=== PATIENT | female | born 1930 | race Caucasian/White ===

== ENCOUNTER → 2017-04-05 | Outpatient (CLI) | payer OTHER ==
[~2017-04-05] MED LIST: ACET1TAB84 PO; ALEN1TAB21 PO; AMLO10TA4 PO; CALC500C3 PO; CHOL20005 PO; LEVO88TA3 PO; LOSA50TA6 PO; NTRGSL/4 UT; OMEP20TA14 PO; OXYB5TAB74 PO; OXYC-57 PO; TRAM-10 PO
[2017-04-05 12:23] LABS: BASO % 0.4 %; BASO ABS # 0.02 K/uL (0-0.2); COMPLETE YES; EOS % 1.7 %; HEMATOCRIT 42.1 % (37-47); IG% 0.2 %; LYMPH % 23.9 %; LYMPH ABS # 1.29 K/uL (1.2-3.4); MEAN CELL VOLUME 87.7 fL (80-100); MEAN PLATELET VOLUME 10.8 fL (7.4-10.4); MONO % 9.6 %; NEUT % 64.2 %; PLATELET COUNT 287 K/uL (130-400)
[2017-04-05 12:52] LABS: ALT/SGPT 18 U/L (12-78); AST/SGOT 11 U/L (15-37); BLOOD UREA NITROGEN 13 mg/dl (7-18); BUN/CREATININE RATIO 15.9 (10-20); CALCIUM 9.6 mg/dl (8.5-10.1); CARBON DIOXIDE 29 mmol/L (21-32); CHLORIDE 105 mmol/L (98-107); CREATININE 0.84 mg/dl (0.60-1.20); GLUCOSE 86 mg/dl (70-99); POTASSIUM 4.2 mmol/L (3.5-5.1); SODIUM 138 mmol/L (136-145)
[2017-04-05 12:54] LABS: ALB/GLOB RATIO 0.9 (0.9-2); ALKALINE PHOSPHATASE 66 U/L (45-117)
== END | disposition home or self-care (01) ==
LOC: C.LAB1850 09:49
PROVIDERS: ATTEND Internal Medicine Infectious Disease
DX: M35.3 Polymyalgia rheumatica (principal)

== ENCOUNTER 2017-10-11 12:42 | Emergency (ER) | payer OTHER ==
[~2017-10-11 12:42] MED LIST changes: +DTR/5 PO; -OXYB5TAB74 PO
[2017-10-11 12:47] VITALS: O2SAT 93
[2017-10-11 12:52] VITALS: TEMP 36.9
[2017-10-11] MEDS ORDERED: ACETAMINOPHEN 500 MG TAB PO STA (13:24)
[2017-10-11] MEDS ORDERED: XYLOCAINE 1%/SOD BICARB 20 ML VIAL INFIL ONE (13:30)
[2017-10-11 13:40] LABS: BASO % 0.3 %; BASO ABS # 0.02 K/uL (0-0.2); EOS % 1.1 %; EOS ABS # 0.07 K/uL (0-0.5); HEMATOCRIT 46.3 % (37-47); HEMOGLOBIN 15.8 g/dL (12.0-16.0); IG# 0.03 K/uL (0.00-0.02); LYMPH ABS # 1.37 K/uL (1.2-3.4); MEAN CELL VOLUME 87.5 fL (80-100); MEAN CORPUSCULAR HEMOGLOBIN 29.9 pg (25-34); MEAN CORPUSCULAR HGB CONC 34.1 g/dl (32-36); MEAN PLATELET VOLUME 10.7 fL (7.4-10.4); MONO % 9.6 %; MONO ABS # 0.63 K/uL (0.11-0.59); NEUT % 67.5 %; NEUT ABS # 4.41 K/uL (1.4-6.5); PLATELET COUNT 264 K/uL (130-400); RED CELL DISTRIBUTION WIDTH CV 13.4 % (11.5-14.5); RED CELL DISTRIBUTION WIDTH SD 42.5 fL (36.4-46.3); WHITE BLOOD COUNT 6.53 K/uL (4.8-10.8)
--- NOTE | 2017-10-11 13:47 | DIAGNOSTIC IMAGING REPORT ---
CHEST ONE VIEW PORTABLE CLINICAL HISTORY: Altered mental status. Weakness. COMPARISON STUDY: 06/29/2015 FINDINGS: The cardiac and mediastinal contours remain stable. There is a large retrocardiac air-containing opacity consistent with a hiatal hernia. There is no failure. There is no focal pulmonary consolidation. There are no pleural effusions.[ IMPRESSION: Large hiatal hernia. No acute findings. Electronically signed by: Efrain Velazco M.D. 10/11/2017 1:46 PM Dictated Date/Time: 10/11/2017 1:45 PM
[2017-10-11 13:53] LABS: ALBUMIN 4.1 gm/dl (3.4-5.0); ALT/SGPT 22 U/L (12-78); BLOOD UREA NITROGEN 13 mg/dl (7-18); CALCIUM 9.4 mg/dl (8.5-10.1); CARBON DIOXIDE 27 mmol/L (21-32); CREATININE 0.81 mg/dl (0.60-1.20); GLUCOSE 124 mg/dl (70-99); POTASSIUM 4.2 mmol/L (3.5-5.1); SODIUM 137 mmol/L (136-145)
[2017-10-11 13:55] LABS: PTT PATIENT 28.4 SECONDS (21.0-31.0)
[2017-10-11 14:03] LABS: ALKALINE PHOSPHATASE 68 U/L (45-117); AST/SGOT 17 U/L (15-37); CKMB 3.7 ng/ml (0.5-3.6)
[2017-10-11] MEDS ORDERED: LEVO100T7 PO (14:11)
[2017-10-11] MEDS ORDERED: AMLO-114 PO (14:11)
[2017-10-11] MEDS ORDERED: NTRGSL/4 UT (14:11)
[2017-10-11] MEDS ORDERED: CZR50 PO (14:11)
--- NOTE | 2017-10-11 14:25 | DIAGNOSTIC IMAGING REPORT ---
CT OF THE HEAD WITHOUT CONTRAST CLINICAL HISTORY: Altered MENTAL STATUS. COMPARISON STUDY: Head CT October 29, 2010. CT DOSE: 1034.98 mGy.cm TECHNIQUE: Helical axial images of the head were obtained without IV contrast. Automated exposure control was utilized for the study. A dose lowering technique was utilized adhering to the principles of ALARA. FINDINGS: No acute intracranial hemorrhage, midline shift or mass effect is present. Ventricular system is stable. Basilar cisterns are patent. There are no extra-axial collections. Extensive white matter hypodensity suggests small vessel disease. There is a left posterior scalp contusion with no calvarial fracture. A small amount of associated scalp gas is present. IMPRESSION: 1. No acute intracranial findings. 2. Left posterior scalp contusion with laceration. No calvarial fracture. Electronically signed by: Moses Fierro M.D. 10/11/2017 2:24 PM Dictated Date/Time: 10/11/2017 2:17 PM
--- NOTE | 2017-10-11 14:26 | DIAGNOSTIC IMAGING REPORT ---
CT SCAN OF THE CERVICAL SPINE CLINICAL HISTORY: Fall. Trauma. COMPARISON STUDY: No priors. TECHNIQUE: CT scan of the cervical spine is performed from the skull base to the upper thoracic spine. Images are reviewed in the axial, sagittal, and coronal planes. IV contrast was not administered for this examination. A dose lowering technique was utilized adhering to the principles of ALARA. FINDINGS: Skeletal structures: The skeletal structures are osteopenic. There is no evidence of fracture or subluxation involving the cervical spine. Vertebral body height is maintained. There is 3 mm anterolisthesis at C3-C4 and finally of anterolisthesis at C4-C5. Minimal retrolisthesis is seen at C5-C6. Alignment is otherwise preserved. There is straightening of the cervical lordosis with mild reversal centered at C4-C5. The odontoid process and lateral masses are intact. Anterior osteophytes are seen in the lower cervical region. The atlantoaxial articulation is preserved noting mild productive degenerative change. The spinous processes appear intact. There is advanced multilevel cervical spondylosis. Uncovertebral and facet arthropathy contribute to neural foraminal stenosis at most levels. Intervertebral discs: Moderate disc space narrowing is seen at C5-C6 and C6-C7. Only mild disc space narrowing is seen at the remaining cervical levels. Central canal: Posterior disc osteophyte complexes at C5-C6 and C6-C7 likely contribute to acquired compromise of the central canal. Soft tissues: The prevertebral and paraspinous soft tissues are within normal limits. The thyroid gland is atrophic. Calvarium: The visualized calvarium at the skull base appears intact. Brain parenchyma: Partially visualized brain parenchyma the skull base is within normal limits. Sinuses and mastoids: The visualized paranasal sinuses are clear. The mastoid air cells are well pneumatized. Lung apices: Clear as visualized. IMPRESSION: 1. There is no evidence of fracture or subluxation involving the cervical spine. 2. Osteopenia and spondylotic change as above. Electronically signed by: Francis Herzog M.D. 10/11/2017 2:25 PM Dictated Date/Time: 10/11/2017 2:20 PM
[2017-10-11] MEDS ORDERED: CEPHALEXIN MONOHYDRATE 250 MG CAP PO ONE (16:15)
[2017-10-11] MEDS ORDERED: CEPH500C PO (16:23)
[2017-10-11 16:25] VITALS: BP 162/94; PULSE 108; O2SAT 95
--- NOTE | 2017-10-11 20:09 | EMERGENCY ROOM VISIT NOTE ---
History Report prepared by Choco: Sandoval Golden Under the Supervision of: Dr. Luis Eduardo Bertrand M.D. First contact with patient: 13:06 Chief Complaint: FALL Stated Complaint: FALL History of Present Illness The patient is a 87 year old female who presents to the Emergency Room with complaints of an episode of syncope that occurred [employer]. She has a past medical history of hypertension. Earlier today, the patient and her were about to walk into [facility] when the patient suddenly lost consciousness, falling to the ground. She woke up sometime later with an injury to the back of her head and her left arm. She is experiencing a headache and neck pain. She states that she used to experience multiple falls in the past but has not been having as many recently. She also states that she has lost consciousness in the past similar to this episode. Pt denies visual changes, chest pain, breathing difficulties, nausea, vomiting, abdominal pain, back pain, extremity pain, numbness, weakness, open wounds, active bleeding, or other complaints. She states that she has received a Tetanus immunization within the past 10 years. She is not on any blood thinners. Source of History: patient Onset: [employer] Position: other (Global) Symptom Intensity: 1 episode Quality: other (Syncope) Timing: resolved Associated Symptoms: + headache, + neck pain Review of Systems See HPI for pertinent positives and negatives. A total of ten systems were reviewed and were otherwise negative. Past Medical & Surgical Medical Problems: (1) HTN (hypertension) (2) UTI (urinary tract infection) Family History Omitted secondary to age Social History Smoking Status: Never Smoker Drug Use: none Marital Status: Occupation Status: employed Current/Historical Medications Scheduled Amlodipine (Norvasc), 10 MG PO DAILY Cephalexin Monohydrate (Keflex), 500 MG PO QID Levothyroxine Sodium (Levothyroxine Sodium), 100 MCG PO DAILY Losartan Potassium (Losartan Potassium), 50 MG PO DAILY Scheduled PRN Nitroglycerin (Nitrostat), 0.4 MG UT PRN PRN for Chest Pain Allergies Coded Allergies: Ciprofloxacin (Verified Allergy, Unknown, RASH,SEVERE HEADACHE, 10/11/17) SEVERE HEADACHE Aspirin (Verified Adverse Reaction, Intermediate, nose bleeds, 10/11/17) Sulfa Antibiotics (Verified Adverse Reaction, Unknown, HEADACHE WITH BACTRIM, 10/11/17) Physical Exam Vital Signs Date Time Temp Pulse Resp B/P (MAP) Pulse Ox O2 Delivery O2 Flow Rate FiO2 10/11/17 16:25 108 20 162/94 95 10/11/17 15:16 110 18 180/93 97 Room Air 10/11/17 14:31 97 18 143/104 97 Room Air 10/11/17 13:09 97 18 173/89 96 Room Air 108 183/98 111 168/93 10/11/17 12:54 96 10/11/17 12:52 36.9 105 18 183/94 97 Room Air 10/11/17 12:47 93 Room Air Physical Exam GENERAL: Awake, alert, well-appearing, in no distress HENT: Normocephalic. Contusion and small laceration to the top of the occiput. Oropharynx unremarkable. EYES: Normal conjunctiva. Sclera non-icteric. NECK: Supple. No nuchal rigidity. FROM. No JVD. RESPIRATORY: Clear to auscultation. CARDIAC: Regular rate, normal rhythm. Extremities warm and well perfused. Pulses equal. ABDOMEN: Soft, non-distended. No tenderness to palpation. No rebound or guarding. No masses. RECTAL: Deferred. MUSCULOSKELETAL: Chest examination reveals no tenderness. The back is symmetrical on inspection without obvious abnormality. There is no CVA tenderness to palpation. No joint edema. There is a skin tear to the left dorsal forearm. The remainder of the LUE is atraumatic. RUE atraumatic. LOWER EXTREMITIES: Calves are equal size bilaterally and non-tender. No edema. No discoloration. Atraumatic. NEURO: Normal sensorium. No sensory or motor deficits noted. SKIN: No rash or jaundice noted. Medical Decision & Procedures ER Provider Diagnostic Interpretation: Radiology results as stated below per my review and radiologist interpretation: CT OF THE HEAD WITHOUT CONTRAST CLINICAL HISTORY: Altered MENTAL STATUS. COMPARISON STUDY: Head CT October 29, 2010. CT DOSE: 1034.98 mGy.cm TECHNIQUE: Helical axial images of the head were obtained without IV contrast. Automated exposure control was utilized for the study. A dose lowering technique was utilized adhering to the principles of ALARA. FINDINGS: No acute intracranial hemorrhage, midline shift or mass effect is present. Ventricular system is stable. Basilar cisterns are patent. There are no extra-axial collections. Extensive white matter hypodensity suggests small vessel disease. There is a left posterior scalp contusion with no calvarial fracture. A small amount of associated scalp gas is present. IMPRESSION: 1. No acute intracranial findings. 2. Left posterior scalp contusion with laceration. No calvarial fracture. Electronically signed by: Moses Fierro M.D. 10/11/2017 2:24 PM Dictated Date/Time: 10/11/2017 2:17 PM CHEST ONE VIEW PORTABLE CLINICAL HISTORY: Altered mental status. Weakness. COMPARISON STUDY: 06/29/2015 FINDINGS: The cardiac and mediastinal contours remain stable. There is a large retrocardiac air-containing opacity consistent with a hiatal hernia. There is no failure. There is no focal pulmonary consolidation. There are no pleural effusions.[ IMPRESSION: Large hiatal hernia. No acute findings. Electronically signed by: Efrain Velazco M.D. 10/11/2017 1:46 PM Dictated Date/Time: 10/11/2017 1:[address] SCAN OF THE CERVICAL SPINE CLINICAL HISTORY: Fall. Trauma. COMPARISON STUDY: No priors. TECHNIQUE: CT scan of the cervical spine is performed from the skull base to the upper thoracic spine. Images are reviewed in the axial, sagittal, and coronal planes. IV contrast was not administered for this examination. A dose lowering technique was utilized adhering to the principles of ALARA. FINDINGS: Skeletal structures: The skeletal structures are osteopenic. There is no evidence of fracture or subluxation involving the cervical spine. Vertebral body height is maintained. There is 3 mm anterolisthesis at C3-C4 and finally of anterolisthesis at C4-C5. Minimal retrolisthesis is seen at C5-C6. Alignment is otherwise preserved. There is straightening of the cervical lordosis with mild reversal centered at C4-C5. The odontoid process and lateral masses are intact. Anterior osteophytes are seen in the lower cervical region. The atlantoaxial articulation is preserved noting mild productive degenerative change. The spinous processes appear intact. There is advanced multilevel cervical spondylosis. Uncovertebral and facet arthropathy contribute to neural foraminal stenosis at most levels. Intervertebral discs: Moderate disc space narrowing is seen at C5-C6 and C6-C7. Only mild disc space narrowing is seen at the remaining cervical levels. Central canal: Posterior disc osteophyte complexes at C5-C6 and C6-C7 likely contribute to acquired compromise of the central canal. Soft tissues: The prevertebral and paraspinous soft tissues are within normal limits. The thyroid gland is atrophic. Calvarium: The visualized calvarium at the skull base appears intact. Brain parenchyma: Partially visualized brain parenchyma the skull base is within normal limits. Sinuses and mastoids: The visualized paranasal sinuses are clear. The mastoid air cells are well pneumatized. Lung apices: Clear as visualized. IMPRESSION: 1. There is no evidence of fracture or subluxation involving the cervical spine. 2. Osteopenia and spondylotic change as above. Electronically signed by: Francis Herzog M.D. 10/11/2017 2:25 PM Dictated Date/Time: 10/11/2017 2:20 PM Laboratory Results 10/11/17 12:55 Red Blood Count 5.29, Mean Corpuscular Volume 87.5, Mean Corpuscular Hemoglobin 29.9, Mean Corpuscular Hemoglobin Concent 34.1, Mean Platelet Volume 10.7, Neutrophils (%) (Auto) 67.5, Lymphocytes (%) (Auto) 21.0, Monocytes (%) (Auto) 9.6, Eosinophils (%) (Auto) 1.1, Basophils (%) (Auto) 0.3, Neutrophils # (Auto) 4.41, Lymphocytes # (Auto) 1.37, Monocytes # (Auto) 0.63, Eosinophils # (Auto) 0.07, Basophils # (Auto) 0.02 10/11/17 12:55 Test 10/11/17 12:55 10/11/17 13:45 10/11/17 13:55 White Blood Count 6.53 K/uL (4.8-10.8) Red Blood Count 5.29 M/uL (4.2-5.4) Hemoglobin 15.8 g/dL (12.0-16.0) Hematocrit 46.3 % (37-47) Mean Corpuscular Volume 87.5 fL (80-100) Mean Corpuscular Hemoglobin 29.9 pg (25-34) Mean Corpuscular Hemoglobin Concent 34.1 g/dl (32-36) Platelet Count 264 K/uL (130-400) Mean Platelet Volume 10.7 fL (7.4-10.4) Neutrophils (%) (Auto) 67.5 % Lymphocytes (%) (Auto) 21.0 % Monocytes (%) (Auto) 9.6 % Eosinophils (%) (Auto) 1.1 % Basophils (%) (Auto) 0.3 % Neutrophils # (Auto) 4.41 K/uL (1.4-6.5) Lymphocytes # (Auto) 1.37 K/uL (1.2-3.4) Monocytes # (Auto) 0.63 K/uL (0.11-0.59) Eosinophils # (Auto) 0.07 K/uL (0-0.5) Basophils # (Auto) 0.02 K/uL (0-0.2) RDW Standard Deviation 42.5 fL (36.4-46.3) RDW Coefficient of Variation 13.4 % (11.5-14.5) Immature Granulocyte % (Auto) 0.5 % Immature Granulocyte # (Auto) 0.03 K/uL (0.00-0.02) Prothrombin Time 10.8 SECONDS (9.0-12.0) Prothromb Time International Ratio 1.0 (0.9-1.1) Activated Partial Thromboplast Time 28.4 SECONDS (21.0-31.0) Partial Thromboplastin Ratio 1.1 Anion Gap 7.0 mmol/L (3-11) Estimated GFR () 75.7 Estimated GFR (Non- 65.3 BUN/Creatinine Ratio 15.6 (10-20) Calcium Level 9.4 mg/dl (8.5-10.1) Magnesium Level 2.2 mg/dl (1.8-2.4) Total Bilirubin 0.4 mg/dl (0.2-1) Direct Bilirubin 0.1 mg/dl (0-0.2) Aspartate Amino Transf (AST/SGOT) 17 U/L (15-37) Alanine Aminotransferase (ALT/SGPT) 22 U/L (12-78) Alkaline Phosphatase 68 U/L (45-117) Total Creatine Kinase 93 U/L (26-192) Creatine Kinase MB 3.7 ng/ml (0.5-3.6) Creatine Kinase MB Ratio 4.0 (0-3.0) Troponin I < 0.015 ng/ml (0-0.045) Total Protein 8.0 gm/dl (6.4-8.2) Albumin 4.1 gm/dl (3.4-5.0) Thyroid Stimulating Hormone (TSH) 0.878 uIu/ml (0.300-4.500) Bedside Glucose 114 mg/dl (70-90) Urine Color YELLOW Urine Appearance CLEAR (CLEAR) Urine pH 7.5 (4.5-7.5) Urine Specific [place] 1.012 (1.000-1.030) Urine Protein NEG (NEG) Urine Glucose (UA) NEG (NEG) Urine Ketones NEG (NEG) Urine Occult Blood NEG (NEG) Urine Nitrite NEG (NEG) Urine Bilirubin NEG (NEG) Urine Urobilinogen NEG (NEG) Urine Leukocyte Esterase TRACE (NEG) Urine WBC (Auto) 5-10 /hpf (0-5) Urine RBC (Auto) 0-4 /hpf (0-4) Urine Hyaline Casts (Auto) 0 /lpf (0-5) Urine Epithelial Cells (Auto) 5-10 /lpf (0-5) Urine Bacteria (Auto) 4+ (NEG) Laboratory results reviewed by me Medications Administered Medications (Trade) Dose Ordered Sig/Andrez Route Start Time Stop Time Status Last Admin Dose Admin Lidocaine HCl (Buffered Lidocaine 1% Inj) 20 ml ONE ONCE INFIL 10/11/17 13:30 10/11/17 13:31 DC 10/11/17 13:41 20 ML Acetaminophen (Tylenol Tab) 1,000 mg NOW STAT PO 10/11/17 13:24 10/11/17 13:26 DC 10/11/17 13:41 1,000 MG Cephalexin Monohydrate (Keflex Cap) 500 mg NOW ONCE PO 10/11/17 16:15 10/11/17 16:16 DC 10/11/17 16:26 500 MG Procedure Location: Top of the occiput Total length: 1.5 cm Complexity: Simple Verbal consent was obtained after the risks and benefits were explained, including but not limited to bleeding, scarring, infection, pain, and bone/joint /nerve damage. At this time, the risks of the procedure are less than the risks of NOT performing the procedure. A time out was taken and the correct patient and site identified. The skin was prepped with betadine. The target area was anesthetized with 1 ml of 1% lidocaine without epinephrine. Copious irrigation was performed using normal saline. The skin was re-prepped with betadine and a sterile field set. The wound was explored for foreign bodies and none found. Examination revealed no injury to deep structures such as tendons, bone, or significant blood vessels. Debridement was not performed. The wound edges were approximated using 3 surgical aurora. Hemostasis and excellent approximation was achieved. Antibacterial ointment and a sterile dressing applied. Detailed wound care instructions and signs and symptoms of infection reviewed with the patient. No complications and the patient tolerated the procedure well. ECG Indication: syncope, other (Trauma) Rate (beats per minute): 98 Rhythm: sinus rhythm Findings: PVC, RBBB (incomplete), no acute ischemic change, other (low voltage QRS) Change: Patient's electrocardiogram was interpreted by me. ED Course 1306: The patient was evaluated in room C3. A complete history and physical exam was performed. 1324: Ordered Tylenol Tab 1000 mg PO 1330: Ordered Lidocaine HCl 20 ml INFIL 1500: The patient is requesting discharge at this time claiming that she has chronic UTI's with bacteria always present in her urine. She also refused catheterization. 1555: I performed a laceration repair procedure at this time. Please see the procedure note for further information. 1615: Ordered Keflex Cap 500 mg PO 1628: I reevaluated the patient. I informed the patient that she is leaving the hospital against medical advice: She verbalized understanding and agreement. The patient is ready for discharge. Medical Decision Prior records/ancillary studies reviewed. Triage Nursing notes reviewed and agree them. Additional history obtained from the family. The patient's history was concerning for syncope. Differential diagnosis: Etiologies such as infection, hypoglycemia, electrolyte abnormalities, cardiac sources, intracerebral event, toxicologic, neurologic, as well as others were entertained. Physical examination: As above. The patient has a small skin tear on the left arm and a laceration on the posterior scalp with hematoma. ER treatment provided: IV hydration with normal saline Laceration repair Wound care to the left forearm On reassessment the patient felt better. Keflex Diagnostics interpretation by me: ECG: As above. The labs revealed an unremarkable CBC and chemistry panel. Urinalysis did show some bacteria. This was concerning for infection. Imaging studies: CT scan and x-ray as above. The patient has had a syncopal episode that was unprovoked. She suffered a closed head injury. She may have a urinary tract infection. I did ask for a catheter specimen however the patient refused. She also refused staying in the hospital. I had a long discussion about staying for observation because of the syncopal episode. I went over all the risks and benefits clearly. The patient does not want to stay in the hospital as she feels well and prefers to be home. She does not like staying in the hospital. Her was present for this. I strongly recommended staying however she declined. The patient has demonstrated no significant defect in the decision-making capacity to make choices. The encounter had a good level of communication with language the patient can easily understand. I feel trust was present and conveyed that our action/intentions were the best interest of the patient. I offered to involve the patient's primary physician's service. The patient was given all relevant information and reiterated the explained risks and benefits. The patient explained the reasoning for refusing treatment clearly. The patient possesses and expresses a set of values and goals, the ability to communicate and understand, and an ability to reason and deliberate. Despite acting emphatically, attentively and with the utmost patient's the patient declined further treatment. I offered options, negotiated, and explored every reasonable choice. I must respect the patient's autonomy and that they feel that their choices are best for them despite the associated risks of leaving AGAINST MEDICAL ADVICE. The patient was educated about the findings as listed above. All questions were answered and the patient was pleased with the treatment. Return instructions were outlined and the patient was discharged in stable condition. The patient was referred to her for follow-up for a recheck of the current condition. I did have case management set up a follow-up appointment with her primary physician's office. The patient was comfortable with this. Also because I was unable to get a clean specimen a culture was sent on the clean catch. I also placed her on Keflex. Head Trauma GCS Score: 15 Medication Reconcilliation Current Medication List: was personally reviewed by me Blood Pressure Screening Patient's blood pressure: Elevated blood pressure Blood pressure disposition: Referred to PCP Impression Primary Impression: Syncope Additional Impressions: Scalp laceration UTI (urinary tract infection) Abrasion of left arm Scribe Attestation The scribe's documentation has been prepared under my direction and personally reviewed by me in its entirety. I confirm that the note above accurately reflects all work, treatment, procedures, and medical decision making performed by me. Departure Information Dispostion Against Medical Advice Prescriptions Cephalexin Monohydrate (Keflex) 500 Mg Cap 500 MG PO QID, #20 CAP Prov: Luis Eduardo Bertrand MD 10/11/17 Referrals Erasto Burks D.O. (PCP) Forms HOME CARE DOCUMENTATION FORM, IMPORTANT VISIT INFORMATION Patient Instructions [facility] Additional Instructions You are leaving against the physician's medical advice. Your evaluation is not complete. The exact cause of your passing out is not known at this time. Your health could be at significant risk by your actions of leaving before the evaluation was completed. This could result in worsening of your condition, need for further treatment, hospitalization, surgery, or even . You may return at any time, for any reason, but you are encouraged to return immediately if your symptoms worsen or if you change your mind. Cephalexin(Keflex) 500mg: Take one pill four times daily for 5 days for your urine infection. All antibiotics can cause diarrhea. If this occurs and you feel worse or it does not resolve in 1-2 days follow up with your doctor or return to the Emergency Department as this could be signs of serious underlying problems. Any medication can cause an allergic reaction, stop the pills immediately and return to the ER for rash, hives, breathing difficulties, or swelling. Acetaminophen(Tylenol) may be used for fever or pain. Use 1000mg every six hours as needed. Avoid using more than 4000mg in a 24 hour period. Rest and drink plenty of fluids. Continue current medications. Return to the ER immediately for worsening or persistent abdominal pain, vomiting, fevers, back or flank pain, worsening of your condition, or as needed. Follow up with [facility] at 1045 on Saturday morning for a recheck of the current condition. WOUND CARE INSTRUCTIONS: Bacitracin to wounds once daily. Keep the bandage in place for 24 hours. Apply direct pressure for any bleeding. Return to the ER immediately for spreading redness, fevers, pus-like drainage, severe pain, or as needed. Return to the ER in 5-7 days for staple removal, or sooner as needed. Problem Qualifiers Primary Impression: Syncope Syncope type: unspecified Qualified Codes: R55 - Syncope and collapse Additional Impressions: Scalp laceration Encounter type: initial encounter Qualified Codes: S01.01XA - Laceration without foreign body of scalp, initial encounter UTI (urinary tract infection) Urinary tract infection type: acute cystitis Hematuria presence: without hematuria Qualified Codes: N30.00 - Acute cystitis without hematuria Abrasion of left arm Encounter type: initial encounter Qualified Codes: S40.812A - Abrasion of left upper arm, initial encounter
== END 2017-10-11 16:30 | disposition home or self-care (01) ==
LOC: EDBD 12:42 → C.EDC 12:43
DX: R55 Syncope and collapse (principal); S01.01XA Laceration without foreign body of scalp, initial encounter; N30.00 Acute cystitis without hematuria; S40.812A Abrasion of left upper arm, initial encounter; W18.39XA Other fall on same level, initial encounter; Y93.01 Activity, walking, marching and hiking; Y92.512 Supermarket, store or market as the place of occurrence of the external cause; I10 Essential (primary) hypertension

== ENCOUNTER 2017-10-18 08:44 | Emergency (ER) | payer OTHER ==
[~2017-10-18 08:44] MED LIST changes: -ACET1TAB84 PO; -ALEN1TAB21 PO; -AMLO10TA4 PO; -CALC500C3 PO; +CEPH500C PO; -CHOL20005 PO; -DTR/5 PO; -LEVO88TA3 PO; -LOSA50TA6 PO; -NTRGSL/4 UT; -OMEP20TA14 PO; -OXYC-57 PO; -TRAM-10 PO
[2017-10-18 08:49] VITALS: TEMP 36.5
--- NOTE | 2017-10-18 09:18 | EMERGENCY ROOM VISIT NOTE ---
ED Visit Note First contact with patient: 09:01 CHIEF COMPLAINT: Staple removal HPI: This patient returns to the ED today for removal of aurora that were placed 7 days ago on the patient's posterior scalp. There has been no swelling , redness, or drainage from the wound. The patient feels like the laceration is healing well. REVIEW OF SYSTEMS: A complete 6 point review of systems was reviewed with the patient with pertinent positives and negatives as per history of present illness. All else were negative. PMH: Hypothyroidism, hypertension SOCIAL HISTORY: Patient lives locally with family. Denies drug, alcohol, tobacco use. PHYSICAL EXAM: Vital Signs: Reviewed Nurse's notes. There is a stapled wound on the posterior scalp with no signs of infection. There is no erythema, swelling, or tenderness. EMERGENCY DEPARTMENT COURSE: 3 aurora were removed from the scalp without any difficulty and there was no separation of the wound edges. The wound was dressed with bacitracin ointment. Discharge instructions reviewed and the patient was discharged home in good condition. DIAGNOSIS: Healing laceration and staple removal Problem List Medical Problems: (1) HTN (hypertension) Status: Chronic (2) UTI (urinary tract infection) Status: Resolved Current/Historical Medications Scheduled Amlodipine (Norvasc), 10 MG PO DAILY Cephalexin Monohydrate (Keflex), 500 MG PO QID Levothyroxine Sodium (Levothyroxine Sodium), 100 MCG PO DAILY Losartan Potassium (Losartan Potassium), 50 MG PO DAILY Scheduled PRN Nitroglycerin (Nitrostat), 0.4 MG UT PRN PRN for Chest Pain Allergies Coded Allergies: Ciprofloxacin (Verified Allergy, Unknown, RASH,SEVERE HEADACHE, 10/18/17) SEVERE HEADACHE Aspirin (Verified Adverse Reaction, Intermediate, nose bleeds, 10/18/17) Sulfa Antibiotics (Verified Adverse Reaction, Unknown, HEADACHE WITH BACTRIM, 10/18/17) Vital Signs Date Time Temp Pulse Resp B/P (MAP) Pulse Ox O2 Delivery O2 Flow Rate FiO2 10/18/17 09:30 93 95 10/18/17 08:49 36.5 82 17 159/95 97 Room Air Departure Information Impression Primary Impression: Encounter for removal of aurora Additional Impression: Scalp laceration Dispostion Home / Self-Care Condition GOOD Referrals No Doctor, Assigned (PCP) Patient Instructions ED Stap Removal No Complication, My [facility] Additional Instructions You were seen in the emergency department today for a staple removal. [place] were removed without complication. Wash any remaining crusts off of the scalp and resume normal activities. Problem Qualifiers Additional Impression: Scalp laceration Encounter type: subsequent encounter Qualified Codes: S01.01XD - Laceration without foreign body of scalp, subsequent encounter
[2017-10-18 09:30] VITALS: BP 187/104; PULSE 93; O2SAT 95
[2017-10-18] MEDS ORDERED: AMLO-114 PO (14:11)
[2017-10-18] MEDS ORDERED: LEVO100T7 PO (14:11)
[2017-10-18] MEDS ORDERED: CZR50 PO (14:11)
[2017-10-18] MEDS ORDERED: NTRGSL/4 UT (14:11)
== END 2017-10-18 09:41 | disposition home or self-care (01) ==
LOC: C.EDB 08:45 → C.EDA 09:41
DX: S01.01XD Laceration without foreign body of scalp, subsequent encounter (principal); X58.XXXD Exposure to other specified factors, subsequent encounter; I10 Essential (primary) hypertension

== ENCOUNTER 2019-03-27 17:37 | Inpatient (IN) ==
--- OUTSIDE RECORDS SUMMARY | 2019-03-27 17:40 | External Medical Summary | Continuity of Care Document ---
:1930 Author Name Dillan Ortiz, Provider Address Unavailable Unavailable , Care Team Providers Name Role Phone Liborio Ojeda M.D. Unavailable [email or web address] Unavailable Unavailable Unavailable Unavailable Unavailable Problems Infected wound (958.3) (T14.8XXA) Claudication (443.9) (I73.9) Hypothyroidism (244.9) (E03.9) Fatigue (780.79) (R53.83) Cellulitis (682.9) (L03.90) Polymyalgia rheumatica (725) (M35.3) Allergies and Adverse Reactions Aspirin TABS (Allergy) Cipro (Allergy) Sulfa Drugs (Allergy) Medications Levothyroxine Sodium 100 MCG Oral Tablet; Take 1 table t daily Angel Ojeda Start: 28-Mar-2016 Quantity: 30 Refills: 5 Minocycline HCl - 100 MG Oral Capsule; Take one (1) ca psule(s) TWICE daily Angel Ojeda Start: 14-Sep-2015 Quantity: 60 Refills: 5 Procedures Procedures not documented Immunizations Immunizations not documented Family History Mother Family history of Status: Active Social History - Smoking Status Never smoker Plan of Treatment Planned Observations Planned Goals not documented Results No Known Results Results not documented Encounters Appointment; Liborio Ojeda M.D. 05-Mar-2018 14:15 Encounter Diagnosis: Problem not documented Appointment; Liborio Ojeda M.D. 31-Jul-2017 13:00 Encounter Diagnosis: Problem not documented Appointment; Liborio Ojeda M.D. 29-May-2017 13:00 Encounter Diagnosis: Problem not documented Appointment; Liborio Ojeda M.D. 05-Apr-2017 9:30 Encounter Diagnosis: Problem not documented Appointment; Liborio Ojeda M.D. 05-Sep-2018 9:00 Encounter Diagnosis: Problem not documented
[2019-03-27] MEDS ORDERED: SODIUM CHLORIDE 0.9% 1000ML 1,000 ML IV SCH (18:15)
--- NOTE | 2019-03-27 18:23 | XRay Report ---
XR chest 1V portable CLINICAL HISTORY: weakness dyspnea COMPARISON STUDY: 08/18/2018 FINDINGS: Mild stable cardiomegaly. Fixed hiatal hernia. Chronic interstitial changes in the left bas e. Lungs otherwise appear clear. IMPRESSION: Chronic change. No acute process. The above report was generated using voice recognition software. It may contain grammatical, syntax or spelling errors. Electronically signed by: Stevie Ngo M.D. 03/27/2019 6:21 PM
[2019-03-27 18:50] LABS: Basophils # (auto) 0.02 K/uL (0-0.2); Basophils % (auto) 0.3 %; Eosinophils # (auto) 0.03 K/uL (0-0.5); Eosinophils % (auto) 0.5 %; Hematocrit (blood only) 41.2 % (37-47); Hemoglobin 14.2 g/dL (12.0-16.0); Lymphocytes # (auto) 1.51 K/uL (1.2-3.4); Lymphocytes % (auto) 23.3 %; Mean Corpuscular Hgb Conc 34.5 g/dL (32-36); Mean Corpuscular Volume 80.3 fL (80-100); Mean Platelet Volume 10.1 fL (7.4-10.4); Monocytes # (auto) 0.69 K/uL (0.11-0.59); Monocytes % (auto) 10.7 %; Neutrophils # (auto) 4.22 K/uL (1.4-6.5); Neutrophils % (auto) 65.2 %; Platelet Count 234 K/uL (130-400); RDW Standard Deviation 50.1 fL (36.4-46.3); Red Blood Count 5.13 M/uL (4.2-5.4); White Blood Count 6.47 K/uL (4.8-10.8)
[2019-03-27 19:08] LABS: Alanine Aminotransferase 18 U/L (12-78); Albumin Level 3.5 gm/dl (3.4-5.0); Aspartate Aminotransferase 13 U/L (15-37); BUN Creatinine Ratio 17.2 (10-20); Blood Urea Nitrogen 16 mg/dl (7-18); Carbon Dioxide 25 mmol/L (21-32); Chloride 96 mmol/L (98-107); Creatinine Clr Calc Pharmacy 40.9 ml/min; Est GFR (Non-African American) 55.2; Glucose 102 mg/dl (70-99); Sodium 129 mmol/L (136-145)
[2019-03-27 19:23] LABS: Albumin Globulin Ratio 0.8 (0.9-2); Alkaline Phosphatase 70 U/L (45-117); Bilirubin,Total 0.4 mg/dl (0.2-1); Globulin 4.3 gm/dl (2.5-4.0); Total Protein 7.8 gm/dl (6.4-8.2); Troponin I < 0.015 ng/ml (0-0.045)
--- NOTE | 2019-03-27 20:45 | History & Physical Report ---
Date of Service March 27, 2019 Assessment & Plan (1) Generalized weakness: This is an 89-year-old female with a PMH of paroxysmal atrial fibrillation on Coumadin, HTN, history of CVA, venous stasis and other medical problems listed below who presents with generalized weakness and ambulatory dysfunction and was found to have hyponatremia of 129. -In the setting of hyponatremia, residual deficit of CVA -Slowly correct sodium with IV fluids, PT/OT evaluation, possible placement -Family states patient does have ambulatory dysfunction intermittently -Fall precautions (2) Hyponatremia: Sodium of 129 in setting of HCTZ use. Will hold for now -Given 1 L NSS in ED. Will continue with gentle fluids overnight, recheck BMP in AM -Serum, urine osm pending (3) Paroxysmal atrial fibrillation: Continue Toprol -On Coumadin for anticoagulation, plan to continue home dose -Checking INR (4) HTN (hypertension): Will give home losartan dose -Holding HCTZ -Hydralazine PRN (5) Hypothyroidism: Continue levothyroxine (6) Iron deficiency anemia: Continue iron supplement (7) Diastolic dysfunction: Echo performed in August 2018 with preserved EF, grade 1 diastolic dysfunction -Appears euvolemic on exam (8) GERD (gastroesophageal reflux disease): Continue PPI DVT Ppx: Continue coumadin Code status: DNR per discussion with patient PCP: Kimmie Dispo: Admitted to med/surg. Discharge planning, PT and OT ordered. Patient seen in collaboration with Dr. Fitch. Please see addendum. History of Present Illness Chief Complaint: Weakness, ambulatory dysfunction Primary Care Provider: Erasto Burks, DO This is an 89-year-old female with a PMH of paroxysmal atrial fibrillation on Coumadin, HTN, history of CVA, venous stasis and other medical problems listed below who presents with generalized weakness and ambulatory dysfunction. Patient and her live with her daughter. Patient is normally able to ambulate independently but once in a while has difficulty "getting her legs to work," which family believes to be a residual deficit of previous stroke. Denies any recent falls. Earlier today, patient was confused and family was unable to move her into the house, so called EMS for further help. In the ED, patient found to be hypertensive due to missed medication doses earlier today. Sodium of 129. Has been taking hydrochlorothiazide regularly. Patient denies any other symptoms. No fever, chills, lightheadedness, visual changes, chest pain, palpitations, shortness of breath, nausea, vomiting, abdominal pain, dysuria, diarrhea or constipation. Allergies Allergy/AdvReac Type Severity Reaction Status Date / Time Cipro Allergy Unknown RASH,SEVERE Verified 03/14/18 21:16 HEADACHE ciprofloxacin Allergy Unknown RASH,SEVERE Verified 03/27/19 18:31 HEADACHE aspirin AdvReac Intermediate nose bleeds Verified 03/27/19 18:31 Sulfa (Sulfonamide AdvReac Unknown HEADACHE Verified 03/27/19 18:31 Antibiotics) WITH BACTRIM Home Medications Home Medications Medication Instructions Recorded Confirmed Type acetaminophen 500 mg PO DIRECTED PRN 08/18/18 03/27/19 History aspirin [Aspir-81] 81 mg PO DAILY 08/18/18 03/27/19 History cholecalciferol (vitamin D3) 2,000 unit PO DAILY 08/18/18 03/27/19 History [Vitamin D3] cyanocobalamin (vitamin B-12) 1,000 mcg IM MONTHLY 08/18/18 03/27/19 History gabapentin 100 mg PO TID 08/18/18 03/27/19 History losartan 50 mg PO DAILY 08/18/18 03/27/19 History metoprolol succinate 25 mg PO DAILY 08/18/18 03/27/19 History omeprazole 20 mg PO QAM 08/18/18 03/27/19 History ferrous sulfate [iron] 325 mg PO DAILY 03/27/19 03/27/19 History hydrochlorothiazide 12.5 mg PO DAILY 03/27/19 03/27/19 History levothyroxine 100 mcg PO QAM 03/27/19 03/27/19 History nitroglycerin [Nitrostat] 0.4 mg SUBLINGUAL DIRECTED PRN 03/27/19 03/27/19 History warfarin [Jantoven] 2 mg PO 5XWK 03/27/19 03/27/19 History warfarin [Jantoven] 4 mg PO 2XWK 03/27/19 03/27/19 History Past Med/Surg History Medical History Hypothyroidism (Chronic) Female stress incontinence (Chronic) Iron deficiency anemia (Chronic) Chronic venous stasis (Chronic) Diastolic dysfunction (Chronic) GERD (gastroesophageal reflux disease) (Chronic) Paroxysmal atrial fibrillation (Chronic) HTN (hypertension) (Chronic) Surgical History History of cystoscopy (Resolved) Family History Other Diabetes Hypertension Lung cancer Social History Preferred Language: Latvian Communication Ability: Effective Transportation Mechanic Required: Yes Beliefs That Will Affect Care: None marital status: Current Living Situation: Family current occupational status: retired Feels Safe at Home: Yes Smoking Status: Never smoker Hx Alcohol Use: No Hx Substance Use: No Review of Systems Review of Systems: At least ten systems reviewed and negative except as noted in the HPI. Physical Exam Physical Exam: General Appearance: WD/WN, no apparent distress, resting comfortably Head: normocephalic, atraumatic Eyes: normal inspection, PERRL, EOMI ENT: hard of hearing, pharynx normal Neck: supple, no JVD, no adenopathy Respiratory/Chest: lungs clear to auscultation. No wheezes, rales or rhonci. No respiratory distress or accessory muscle use Cardiovascular: regular rate, rhythm, no murmur, normal peripheral pulses, trace BLE edema Abdomen/GI: normal bowel sounds, soft, non-tender to palpation Extremities/Musculoskelatal: normal inspection, no calf tenderness, normal capillary refill, no pedal edema Neurologic/Psych: alert, normal mood/affect, oriented x 3 Skin: normal color, warm/dry Results & Data Vital Signs (Past 12 Hours) Vital Signs Temp Pulse Resp BP Pulse Ox 03/27/19 20:00 133 H 21 03/27/19 19:47 70 20 97 03/27/19 19:32 73 17 97 03/27/19 19:31 82 19 190/98 H 96 03/27/19 19:30 76 20 98 03/27/19 19:22 71 25 H 188/88 H 99 03/27/19 19:00 68 20 03/27/19 18:30 71 16 03/27/19 18:00 76 19 03/27/19 17:57 75 25 H 03/27/19 17:49 36.8 C 73 20 154/94 H 95 Laboratory Results Short CBC 03/27/19 Range/Units 18:39 WBC 6.47 (4.8-10.8) K/uL Hgb 14.2 (12.0-16.0) g/dL Hct 41.2 (37-47) % Plt Count 234 (130-400) K/uL BMP 03/27/19 18:39 Sodium 129 L Potassium 4.0 Chloride 96 L Carbon Dioxide 25 BUN 16 Creatinine 0.92 Glucose 102 H Calcium 9.0 Cardiac Enzymes 03/27/19 Range/Units 18:39 Troponin I < 0.015 (0-0.045) ng/ml Liver Function 03/27/19 Range/Units 18:39 Total Bilirubin 0.4 (0.2-1) mg/dl AST 13 L (15-37) U/L ALT 18 (12-78) U/L Alkaline Phosphatase 70 (45-117) U/L Albumin 3.5 (3.4-5.0) gm/dl Diagnostic Findings CXR: IMPRESSION: Chronic change. No acute process. Supervising Physician Co-Signing Physician Notes I saw this patient with the physician energy assistant, I participated in the history, physical, review of systems, and physical exam. I reviewed the medications with the patient and the physician energy assistant and helped reconcile the medications. I helped take a detailed family and social history as well. I formulated the assessment and plan personally with the physician energy assistant and went over it with the patient. ROS-No Headache, No Visual Changes, No Nausea, No Vomiting, No Fever, No Chills, No Neck Pain or Stiffness, No Chest Pain, No Palpitations, No SOB, No SHAH, No Cough, No Sputum, No Wheezing, No Abdominal Pain, No Diarrhea, No Hematemesis, No Hemoptysis, No Unexpected Weight Loss, No Flank pain, No Melena, No Hematochezia, No Frequency, No Urgency, No Burning, No Hematuria, No Rashes, No Diaphoresis. Appetite is Normal, Weak Legs Physical Exam Gen-AAO x 3, NAD, Afebrile, MARSHALL Head-NCAT, EOMI, PERRLA, Anicteric Sclera, No Posterior Pharyngeal Erythema Neck-Supple, No JVD, No Thyromegaly, No Masses, No LAD, No Bruits Lungs-Clear to Auscultation Bilaterally, No Rales, No Rhonchi, No Wheezing, No Crepitus Chest-No S4, +S1, +S2, No S3, No Murmurs, No Rubs, No Gallops, No Ectopy Abdomen-Soft, Bowel Sounds Present, Non Tender, Non Distended, No Hepatomegaly, No Splenomegaly, No Palpable Masses, No Rebound, No Rigidity, No Guarding Musculoskeletal-Full Range of Motion Bilaterally, No CVAT Extremities-No Cyanosis, No Clubbing, No Edema Nuero-Cranial Nerves II-XII grossly intact, Motor WNL, DTRs WNL, Strength WNL, Non Focal Psych-Normal Mood
[2019-03-27 21:19] LABS: Prothrombin Time 41.3 Seconds (9.0-12.0)
[2019-03-27 21:23] LABS: INR 4.5 (0.9-1.1)
[2019-03-27 21:48] LABS: Appearance Urine Clear (Clear); Bacteria Urine Automated Negative (Negative); Bilirubin Urine Negative (Negative); Blood Urine 1+ (Negative); Cast Urine Automated 0 /lpf (0-5); Color Urine Yellow; Epithelial Cell Urine Auto >30 /lpf (0-5); Glucose Urine UA Negative (Negative); Ketones Urine Negative (Negative); Leukocyte Esterase Urine Trace (Negative); Nitrite Urine Negative (Negative); Protein Urine Negative (Negative); RBC Urine Automated 0-4 /hpf (0-4); Urobilinogen Urine Negative (Negative); pH Urine 7.5 (4.5-7.5)
[2019-03-27] MEDS ORDERED: NITROGLYCERIN SL 0.4 MG/TAB TAB SL PRN (21:57)
[2019-03-27] MEDS ORDERED: POLYETHYLENE (MIRALAX) 17 GM PACK PO PRN (21:57)
[2019-03-27] MEDS: SODIUM CHLORIDE 0.9% 1000ML 1,000 ML IV SCH (22:11)
[2019-03-27] MEDS: ACETAMINOPHEN 500 MG TAB PO PRN (22:32)
[2019-03-27] MEDS: GABAPENTIN 100 MG CAP PO SCH (22:52)
[2019-03-27] MEDS: METOPROLOL SUCC 25MG EXT REL TAB PO SCH (22:53)
[2019-03-27 23:01] LABS: T4 Free Thyroxine 1.42 ng/dl (0.8-1.6)
[2019-03-28] MEDS: LEVOTHYROXINE SODIUM 100 MCG TABLET PO SCH (06:02)
[2019-03-28 06:09] LABS: Hematocrit (blood only) 38.7 % (37-47); Hemoglobin 13.3 g/dL (12.0-16.0); Mean Corpuscular Hgb Conc 34.4 g/dL (32-36); Mean Platelet Volume 10.2 fL (7.4-10.4); Platelet Count 190 K/uL (130-400); RDW Coefficient of Variation 16.8 % (11.5-14.5); RDW Standard Deviation 49.3 fL (36.4-46.3); Red Blood Count 4.84 M/uL (4.2-5.4); White Blood Count 4.68 K/uL (4.8-10.8)
[2019-03-28 06:29] LABS: INR 3.6 (0.9-1.1)
[2019-03-28 06:45] LABS: BUN Creatinine Ratio 14.3 (10-20); Calcium 8.6 mg/dl (8.5-10.1); Creatinine Clr Calc Pharmacy 48.3 ml/min; Est GFR (African American) 78.1; Est GFR (Non-African American) 67.4; Potassium 3.8 mmol/L (3.5-5.1)
[2019-03-28] MEDS ORDERED: NURSING DECISION MEDICATION ONE (06:57)
[2019-03-28] MEDS ORDERED: MICONAZOLE NITRATE POWDER 43 GM EXT PRN (07:04)
[2019-03-28] MEDS: SODIUM CHLORIDE 0.9% 1000ML 1,000 ML IV SCH ×2 (08:00→19:51)
[2019-03-28] MEDS: LOSARTAN POTASSIUM 50 MG TAB PO SCH (08:40)
[2019-03-28] MEDS: CHOLECALCIFEROL 1,000 UNITS TAB PO SCH (08:41)
[2019-03-28] MEDS: PANTOprazole 40 MG TAB PO SCH (08:42)
[2019-03-28] MEDS: METOPROLOL SUCC 25MG EXT REL TAB PO SCH (08:43)
[2019-03-28] MEDS: ASPIRIN 81 MG ECTAB PO SCH (08:43)
[2019-03-28] MEDS: GABAPENTIN 100 MG CAP PO SCH ×4 (08:47→21:45)
[2019-03-28] MEDS: FERROUS SULFATE 325 MG TAB PO SCH (08:48)
[2019-03-28] MEDS ORDERED: LOSARTAN POTASSIUM 50 MG TAB PO SCH (09:00)
[2019-03-28] MEDS ORDERED: WARFARIN SOD 4 MG TAB PO SCH (16:00)
--- NOTE | 2019-03-28 17:46 | Hospitalist Progress Note ---
Date of Service March 28, 2019 Assessment & Plan (1) Generalized weakness: Ambulatory dysfunction has been declined in the last few months UA negative for bacteria, trace leukocytes Continue PT/OT Fall precaution Consider placement to SNF (2) Hyponatremia: Possible related to HCTZ and poor oral intake Sodium of 129 on admission Received IVF Na improved to 133 today Continue monitor BMP Will monitor for fluid overload (3) Paroxysmal atrial fibrillation: rate controlled Continue Toprol INR 3.6 today Will decrease coumadin Monitor PT/INR (4) HTN (hypertension): BP elevated On Lasatan 50mg daily and Hydralazine Continue to holding HCTZ Hydralazine PRN prn Consider to increase Losartan to 100mg daily, if BP stays elevate Continue monitor BP (5) Dysuria: Complaint of burning with urination and strong smelling urine as per daughter Pt Just completed a course of oral abx 2 days ago UA only showed trace leukocytes, no bacteria Will check urine cx Will hold on further abx (6) Hypothyroidism: Continue levothyroxine (7) Iron deficiency anemia: Continue iron supplement (8) Diastolic dysfunction: Echo performed in August 2018 with preserved EF, grade 1 diastolic dysfunction Will monitor closely for overload (9) GERD (gastroesophageal reflux disease): Continue PPI DVT Ppx: Continue coumadin Code status: DNR Dispo: Consider placement to SNF Subjective Pt was seen and examined Sitting in chair with no distress with and daughter at bedside Daughter said that pt was so weak yesterday, she tried to get up from the chair for 45 minutes and was not able too daughter said that she noticed in the last few months that her mental status declines She would like to speak to case management for placement because she is not able to provide care for her daughter said that she just completed a course of antibiotic about 2 days ago Pt said that she is sore in her chest and legs. Area is tender with touching Denies any chest pain, palpitation, dizziness and SOB Physical Exam Physical Exam: General- No acute distress Head- atraumatic Eyes- PERRL, EOMI, ENT- decrease hearing function Neck- supple, no JVD Lungs- diminished BS Heart- regular rhythm; no murmur Abdomen- normal bowel sounds, soft, nontender Extremities- no calf tenderness Neuro- alert, oriented, PERRL, EOMI; no facial palsy; no dysarthria Skin- warm & dry Results & Data Vital Signs (Past 12 Hours) Vital Signs Temp Pulse Resp BP Pulse Ox 03/28/19 16:31 36.7 C 60 20 156/80 H 95 03/28/19 15:59 156/80 H 03/28/19 07:00 36.4 C L 59 L 20 155/78 H 97
--- NOTE | 2019-03-28 18:15 | Emergency Department Note ---
Entered by Namita Pope acting as a scribe for Charbel Colvin MD History of Present Illness General Chief complaint: Leg Weakness, Bilateral Stated complaint: LEG WEAKNESS Time Seen by Provider: 03/27/19 17:42 Source: patient and family History of Present Illness Provider complaint: Leg weakness Onset (ago): month(s) Location: lower extremity Pain Consistency: + other (worsening ) Maximum Pain Intensity: 8 Quality: + constant Associated symptoms: + weakness The patient is an 89 white female w/ PMHx of leukocytosis, pneumonia, and chronic venous stasis who presents to the ED w/ CC of worsening leg weakness beginning months ago. The patient states she had a stroke a couple of years ago. She reports she has not had any recent falls. The patient notes she uses a walker at home. She reports she fell months ago and hurt her back. The patients family is concerned she is not able to walk normally. Home Medications Home Medications Medication Instructions Recorded Confirmed Type acetaminophen 500 mg PO DIRECTED PRN 08/18/18 03/27/19 History aspirin [Aspir-81] 81 mg PO DAILY 08/18/18 03/27/19 History cholecalciferol (vitamin D3) 2,000 unit PO DAILY 08/18/18 03/27/19 History [Vitamin D3] cyanocobalamin (vitamin B-12) 1,000 mcg IM MONTHLY 08/18/18 03/27/19 History gabapentin 100 mg PO TID 08/18/18 03/27/19 History losartan 50 mg PO DAILY 08/18/18 03/27/19 History metoprolol succinate 25 mg PO DAILY 08/18/18 03/27/19 History omeprazole 20 mg PO QAM 08/18/18 03/27/19 History ferrous sulfate [iron] 325 mg PO DAILY 03/27/19 03/27/19 History hydrochlorothiazide 12.5 mg PO DAILY 03/27/19 03/27/19 History levothyroxine 100 mcg PO QAM 03/27/19 03/27/19 History nitroglycerin [Nitrostat] 0.4 mg SUBLINGUAL DIRECTED PRN 03/27/19 03/27/19 History warfarin [Jantoven] 2 mg PO 5XWK 03/27/19 03/27/19 History warfarin [Jantoven] 4 mg PO 2XWK 03/27/19 03/27/19 History Allergies Allergy/AdvReac Type Severity Reaction Status Date / Time Cipro Allergy Unknown RASH,SEVERE Verified 03/14/18 21:16 HEADACHE ciprofloxacin Allergy Unknown RASH,SEVERE Verified 03/27/19 18:31 HEADACHE aspirin AdvReac Intermediate nose bleeds Verified 03/27/19 18:31 Sulfa (Sulfonamide AdvReac Unknown HEADACHE Verified 03/27/19 18:31 Antibiotics) WITH BACTRIM Past Med/Surg History Medical History Hypothyroidism (Chronic) Female stress incontinence (Chronic) Iron deficiency anemia (Chronic) Chronic venous stasis (Chronic) Diastolic dysfunction (Chronic) GERD (gastroesophageal reflux disease) (Chronic) Paroxysmal atrial fibrillation (Chronic) HTN (hypertension) (Chronic) Surgical History History of cystoscopy (Resolved) Family History Other Diabetes Hypertension Lung cancer Social History Preferred Language: Amharic Communication Ability: Effective [employer] Library Media Program Director Required: Yes Beliefs That Will Affect Care: None marital status: Current Living Situation: Family current occupational status: retired Feels Safe at Home: Yes Smoking Status: Never smoker Hx Alcohol Use: No Hx Substance Use: No Review of Systems See HPI for pertinent positives & negatives. and A total of 10 systems reviewed and were otherwise negative Physical Exam Vital Signs Vital Signs - 24 hr 03/27/19 18:30 03/27/19 19:00 03/27/19 19:22 Pulse Rate 71 68 71 Pulse Rate from SpO2 Sensor 73 Respiratory Rate 16 20 25 H Blood Pressure 188/88 H Blood Pressure Mean 121 Pulse Oximetry 99 Oxygen Delivery Method 03/27/19 19:30 03/27/19 19:31 03/27/19 19:32 Pulse Rate 76 82 73 Pulse Rate from SpO2 Sensor 71 72 73 Respiratory Rate 20 19 17 Blood Pressure 190/98 H Blood Pressure Mean 128 Pulse Oximetry 98 96 97 Oxygen Delivery Method 03/27/19 19:47 03/27/19 20:00 03/27/19 20:17 Pulse Rate 70 133 H Pulse Rate from SpO2 Sensor 67 Respiratory Rate 20 21 16 Blood Pressure 164/88 H Blood Pressure Mean 113 Pulse Oximetry 97 97 Oxygen Delivery Method Room Air 03/27/19 20:30 03/27/19 20:31 03/27/19 20:32 Pulse Rate 71 70 67 Pulse Rate from SpO2 Sensor Respiratory Rate 22 26 H 23 Blood Pressure 186/100 H Blood Pressure Mean 128 Pulse Oximetry Oxygen Delivery Method GENERAL: Well appearing, well nourished, NAD, non-toxic. Appears stated age. Wearing glasses EYE EXAM: Normal conjunctiva. PERRL, no anisocoria and EOM's grossly intact w/o pain. OROPHARYNX: Dry mucous membranes. Grossly normal dentition. NECK: Supple, no nuchal rigidity, no adenopathy, non-tender. No signs of meningismus. LUNGS: Clear to auscultation. Normal chest wall mechanics. HEART: NSR, no MRG. ABDOMEN: Abdomen soft, non-tender, normo-active bowel sounds, no masses, no rebound or guarding. BACK: No CVA TTP. SKIN: No rashes and no bruising. UPPER EXTREMITIES: Upper extremities are grossly normal. LOWER EXTREMITIES: No pitting edema. No calf pain. NEURO EXAM: A&O x3, cranial nerves II-XII grossly intact, normal speech, moves all 4 extremities on command w/o issue. Course 1754: The patient was evaluated in room C3. A complete history and physical exam was performed. 1940: Upon reevaluation, the patient is resting comfortably. I discussed laboratory and radiographic results with her. The patient verbalized agreement of the treatment plan. The patient will be evaluated for further management and care. 1947: I dicussed the patient's case with Dr. Fitch, Internal medicine. Administered Medications Acetaminophen (Tylenol) 500 mg PO Q4H PRN PRN Reason: Pain Stop: 04/26/19 21:56 Last Admin: 03/27/19 22:32 Dose: 500 mg Documented by: [id number] Aspirin (Ecotrin Ectab) 81 mg PO DAILY [facility] Stop: 04/27/19 08:59 Last Admin: 03/28/19 08:43 Dose: 81 mg Documented by: [id number] Ferrous Sulfate (Feosol) 325 mg PO DAILY [facility] Stop: 04/27/19 08:59 Last Admin: 03/28/19 08:48 Dose: 325 mg Documented by: [id number] Gabapentin (Neurontin) 100 mg PO TID [facility] Stop: 04/26/19 21:56 Last Admin: 03/28/19 14:00 Dose: 100 mg Documented by: [id number] Admin: 03/28/19 08:47 Dose: 100 mg Documented by: [id number] Admin: 03/27/19 22:52 Dose: 100 mg Documented by: [id number] Hydralazine HCl (Apresoline) 25 mg PO Q6H [facility] Stop: 04/26/19 21:59 Last Admin: 03/28/19 15:59 Dose: 25 mg Documented by: [id number] Admin: 03/28/19 08:43 Dose: 25 mg Documented by: [id number] Admin: 03/28/19 04:05 Dose: Not Given Documented by: [id number] Admin: 03/27/19 22:52 Dose: 25 mg Documented by: [id number] Sodium Chloride (Nss 1000ml) 1,000 mls @ 85 mls/hr IV .[id number] [facility] Stop: 04/26/19 21:56 Last Admin: 03/28/19 08:00 Dose: 85 mls/hr Documented by: [id number] Infusion: 03/28/19 08:00 Dose: 85 mls/hr Documented by: [id number] Admin: 03/27/19 22:11 Dose: 85 mls/hr Documented by: [id number] Levothyroxine Sodium (Synthroid) 100 mcg PO DAILYBB [facility] Stop: 04/27/19 06:29 Last Admin: 03/28/19 06:02 Dose: 100 mcg Documented by: [id number] Losartan Potassium (Cozaar) 50 mg PO QAM [facility] Stop: 04/27/19 08:59 Last Admin: 03/28/19 08:40 Dose: 50 mg Documented by: [id number] Metoprolol Succinate (Toprol Xl) 25 mg PO DAILY [facility] Stop: 04/26/19 21:56 Last Admin: 03/28/19 08:43 Dose: 25 mg Documented by: [id number] Admin: 03/27/19 22:53 Dose: 25 mg Documented by: [id number] Pantoprazole Sodium (Protonix) 40 mg PO QAM [facility] Stop: 04/27/19 08:59 Last Admin: 03/28/19 08:42 Dose: 40 mg Documented by: [id number] Vitamin D (Vitamin D3) 2,000 units PO DAILY [facility] Stop: 04/27/19 08:59 Last Admin: 03/28/19 08:41 Dose: 2,000 units Documented by: [id number] Discontinued Medications Sodium Chloride (Nss 1000ml) 1,000 mls @ 999 mls/hr IV .Q1H1M [facility] Stop: 03/27/19 19:15 Last Infusion: 03/27/19 20:14 Dose: 0 mls/hr Documented by: [id number] Admin: 03/27/19 18:44 Dose: 999 mls/hr Documented by: [id number] Losartan Potassium (Cozaar) 50 mg PO DAILY [facility] Stop: 04/27/19 08:59 Last Admin: 03/28/19 10:48 Dose: Not Given Documented by: [id number] Medical Decision Making Differential Diagnosis The patient is an 89 white female w/ PMHx of leukocytosis, pneumonia, and chron ic venous stasis who presents to the ED w/ CC of worsening leg weakness beginning months ago. Differential Diagnosis: Differential includes acute coronary syndrome, myocardial infarction, CVA, TIA, anemia, infection, pneumonia, UTI, pyelonephritis, poor nutrition, dehydration, electrolyte disturbance,hypoglycemia. Medical Records Attestation: I reviewed the patient's medical records. Home Medications Current Medication List: was personally reviewed by me Laboratory Data Attestation: I reviewed the patient's lab results. Result diagrams: 03/28/19 05:31 03/28/19 05:31 Lab Results 03/27/19 03/27/19 03/27/19 Range/Units 18:39 18:39 18:40 WBC 6.47 (4.8-10.8) K/uL RBC 5.13 (4.2-5.4) M/uL Hgb 14.2 (12.0-16.0) g/dL Hct 41.2 (37-47) % MCV 80.3 (80-100) fL MCH 27.7 (25-34) pg MCHC 34.5 (32-36) g/dL RDW Std Deviation 50.1 H (36.4-46.3) fL RDW Coeff of Evelio 17.0 H (11.5-14.5) % Plt Count 234 (130-400) K/uL MPV 10.1 (7.4-10.4) fL Immature Gran % (Auto) 0.0 % Neut % (Auto) 65.2 % Lymph % (Auto) 23.3 % [place] % (Auto) 10.7 % Eos % (Auto) 0.5 % Baso % (Auto) 0.3 % Immature Gran # (Auto) 0.00 (0.00-0.02) K/uL Neut # (Auto) 4.22 (1.4-6.5) K/uL Lymph # (Auto) 1.51 (1.2-3.4) K/uL [place] # (Auto) 0.69 H (0.11-0.59) K/uL Eos # (Auto) 0.03 (0-0.5) K/uL Baso # (Auto) 0.02 (0-0.2) K/uL PT (9.0-12.0) Seconds INR (0.9-1.1) Sodium 129 L (136-145) mmol/L Potassium 4.0 (3.5-5.1) mmol/L Chloride 96 L (98-107) mmol/L Carbon Dioxide 25 (21-32) mmol/L Anion Gap 8.0 (3-11) BUN 16 (7-18) mg/dl Creatinine 0.92 (0.6-1.2) mg/dl Est Cr Clr Drug Dosing 40.9 ml/min Est GFR ( Amer) 64.0 Est GFR (Non-Af Amer) 55.2 BUN/Creatinine Ratio 17.2 (10-20) Glucose 102 H (70-99) mg/dl Osmolality 273 L (280-300) mOsm/kg Calcium 9.0 (8.5-10.1) mg/dl Magnesium 2.0 (1.8-2.4) mg/dl Total Bilirubin 0.4 (0.2-1) mg/dl AST 13 L (15-37) U/L ALT 18 (12-78) U/L Alkaline Phosphatase 70 (45-117) U/L Troponin I < 0.015 (0-0.045) ng/ml Total Protein 7.8 (6.4-8.2) gm/dl Albumin 3.5 (3.4-5.0) gm/dl Globulin 4.3 H (2.5-4.0) gm/dl Albumin/Globulin Ratio 0.8 L (0.9-2) TSH 3.330 (0.300-4.500) uIu/ml 07/19/19 Range/Units 18:40 WBC (4.8-10.8) K/uL RBC (4.2-5.4) M/uL Hgb (12.0-16.0) g/dL Hct (37-47) % MCV (80-100) fL MCH (25-34) pg MCHC (32-36) g/dL RDW Std Deviation (36.4-46.3) fL RDW Coeff of Evelio (11.5-14.5) % Plt Count (130-400) K/uL MPV (7.4-10.4) fL Immature Gran % (Auto) % Neut % (Auto) % Lymph % (Auto) % [place] % (Auto) % Eos % (Auto) % Baso % (Auto) % Immature Gran # (Auto) (0.00-0.02) K/uL Neut # (Auto) (1.4-6.5) K/uL Lymph # (Auto) (1.2-3.4) K/uL [place] # (Auto) (0.11-0.59) K/uL Eos # (Auto) (0-0.5) K/uL Baso # (Auto) (0-0.2) K/uL PT 41.3 H (9.0-12.0) Seconds INR 4.5 H (0.9-1.1) Sodium (136-145) mmol/L Potassium (3.5-5.1) mmol/L Chloride (98-107) mmol/L Carbon Dioxide (21-32) mmol/L Anion Gap (3-11) BUN (7-18) mg/dl Creatinine (0.6-1.2) mg/dl Est Cr Clr Drug Dosing ml/min Est GFR ( Amer) Est GFR (Non-Af Amer) BUN/Creatinine Ratio (10-20) Glucose (70-99) mg/dl Osmolality (280-300) mOsm/kg Calcium (8.5-10.1) mg/dl Magnesium (1.8-2.4) mg/dl Total Bilirubin (0.2-1) mg/dl AST (15-37) U/L ALT (12-78) U/L Alkaline Phosphatase (45-117) U/L Troponin I (0-0.045) ng/ml Total Protein (6.4-8.2) gm/dl Albumin (3.4-5.0) gm/dl Globulin (2.5-4.0) gm/dl Albumin/Globulin Ratio (0.9-2) TSH (0.300-4.500) uIu/ml Imaging Data Radiologist's Impression: Radiology results as stated below per my review and the radiologist's interpretation: XR chest 1V portable CLINICAL HISTORY: weakness dyspnea COMPARISON STUDY: 08/18/2018 FINDINGS: Mild stable cardiomegaly. Fixed hiatal hernia. Chronic interstitial changes in the left base. Lungs otherwise appear clear. IMPRESSION: Chronic change. No acute process. The above report was generated using voice recognition software. It may contain grammatical, syntax or spelling errors. Electronically signed by: Stevie Ngo M.D. 03/27/2019 6:21 PM ECG Data Indication: weakness Rate (beats per minute): 73 Rhythm: sinus rhythm Findings: + other (Normal intervals and axis.) and + PVC Blood Pressure Blood Pressure Findings: Elevated blood pressure Blood Pressure Disposition: further management by hospitalist MDM Narrative The patient is an 89 white female w/ PMHx of leukocytosis, pneumonia, and chronic venous stasis who presents to the ED w/ CC of worsening leg weakness beginning months ago. Patient was seen and evaluated the bedside. Family was concerned about worsening lower extremity weakness and associated difficulty with ambulation. Patient primary does use a walker for ambulation. On exam the patient does have bilateral symmetric strength. No focal neuro deficits although there was some initial concern about possible slurred speech but this is been ongoing for longer than a day and I do not believe this is an acute stroke. The patient does have some associated hyponatremia. The patient does have a history of hypothyroidism and is on hydrochlorthiazide which may be contributory. I did order urine and serum all zones as well as urine discuss the patient's case with the on-call hospitalist who agreed to further evaluate treat the patient. Patient was admitted to the medicine service. Impression & Plan Weakness, Hyponatremia Discharge Plan Visit Data *Final* Discharge Date/Time: 03/27/19 21:46 Chief Complaint: Leg Weakness, Bilateral Stated Complaint: LEG WEAKNESS ED Provider: Charbel Colvin Discharge Problem: Weakness, Hyponatremia Patient Disposition: Admitted As Inpatient Discharge Instructions Interventions: ED Discharge Assessment Last Done: 03/27/19 21:46 The scribe's documentation has been prepared under my direction and personally reviewed by me in its entirety. I confirm that the note above accurately reflects all work, treatment, procedures, and medical decision making performed by me.
[2019-03-28] MEDS ORDERED: WARFARIN SOD 2 MG TAB PO ONE (18:55)
[2019-03-28] MEDS ORDERED: DOCUSATE SODIUM 100 MG CAP PO PRN (18:56)
[2019-03-28] MEDS ORDERED: POLYETHYLENE (MIRALAX) 17 GM PACK PO PRN (18:56)
[2019-03-29] MEDS: LEVOTHYROXINE SODIUM 100 MCG TABLET PO SCH (05:44)
[2019-03-29 06:28] LABS: INR 3.3 (0.9-1.1); Prothrombin Time 30.9 Seconds (9.0-12.0)
[2019-03-29 06:42] LABS: BUN Creatinine Ratio 12.9 (10-20); Calcium 8.3 mg/dl (8.5-10.1); Creatinine Clr Calc Pharmacy 57.9 ml/min; Est GFR (African American) 91.2; Est GFR (Non-African American) 78.7; Potassium 3.7 mmol/L (3.5-5.1)
[2019-03-29] MEDS: LOSARTAN POTASSIUM 50 MG TAB PO SCH (07:45)
[2019-03-29] MEDS: ASPIRIN 81 MG ECTAB PO SCH (07:46)
[2019-03-29] MEDS: GABAPENTIN 100 MG CAP PO SCH ×3 (07:46→20:58)
[2019-03-29] MEDS: FERROUS SULFATE 325 MG TAB PO SCH (07:47)
[2019-03-29] MEDS: CHOLECALCIFEROL 1,000 UNITS TAB PO SCH (07:48)
[2019-03-29] MEDS: METOPROLOL SUCC 25MG EXT REL TAB PO SCH (07:48)
[2019-03-29] MEDS: PANTOprazole 40 MG TAB PO SCH (07:48)
[2019-03-29] MEDS: SODIUM CHLORIDE 0.9% 1000ML 1,000 ML IV SCH ×2 (07:49→18:48)
--- NOTE | 2019-03-29 08:42 | Discharge Summary ---
Date of Service March 28, 2019 Admission HPI Per Admitting Provider This is an 89-year-old female with a PMH of paroxysmal atrial fibrillation on Coumadin, HTN, history of CVA, venous stasis and other medical problems listed below who presents with generalized weakness and ambulatory dysfunction. Patient and her live with her daughter. Patient is normally able to ambulate independently but once in a while has difficulty "getting her legs to work," which family believes to be a residual deficit of previous stroke. Denies any recent falls. Earlier today, patient was confused and family was unable to move her into the house, so called EMS for further help. In the ED, patient found to be hypertensive due to missed medication doses earlier today. Sodium of 129. Has been taking hydrochlorothiazide regularly. Patient denies any other symptoms. No fever, chills, lightheadedness, visual changes, chest pain, palpitations, shortness of breath, nausea, vomiting, abdominal pain, dysuria, diarrhea or constipation. Admission Exam Per Admitting Provider General Appearance: WD/WN, no apparent distress, resting comfortably Head: normocephalic, atraumatic Eyes: normal inspection, PERRL, EOMI ENT: hard of hearing, pharynx normal Neck: supple, no JVD, no adenopathy Respiratory/Chest: lungs clear to auscultation. No wheezes, rales or rhonci. No respiratory distress or accessory muscle use Cardiovascular: regular rate, rhythm, no murmur, normal peripheral pulses, trace BLE edema Abdomen/GI: normal bowel sounds, soft, non-tender to palpation Extremities/Musculoskelatal: normal inspection, no calf tenderness, normal capillary refill, no pedal edema Neurologic/Psych: alert, normal mood/affect, oriented x 3 Skin: normal color, warm/dry Discharge Data Allergies Allergy/AdvReac Type Severity Reaction Status Date / Time Cipro Allergy Unknown RASH,SEVERE Verified 03/14/18 21:16 HEADACHE ciprofloxacin Allergy Unknown RASH,SEVERE Verified 03/27/19 18:31 HEADACHE aspirin AdvReac Intermediate nose bleeds Verified 03/27/19 18:31 Sulfa (Sulfonamide AdvReac Unknown HEADACHE Verified 03/27/19 18:31 Antibiotics) WITH BACTRIM Consultations 03/27/19 20:24 ED Decision to Admit Stat Ordered Studies XR chest 1V portable CLINICAL HISTORY: weakness dyspnea COMPARISON STUDY: 08/18/2018 FINDINGS: Mild stable cardiomegaly. Fixed hiatal hernia. Chronic interstitial changes in the left base. Lungs otherwise appear clear. IMPRESSION: Chronic change. No acute process. The above report was generated using voice recognition software. It may contain grammatical, syntax or spelling errors. Electronically signed by: Stevie Ngo M.D. 03/27/2019 6:21 PM Dictated: 03/27/191820 Transcribed: 03/27/191820 Hospital Course (1) Generalized weakness: Ambulatory dysfunction has been declined in the last few months UA negative for bacteria, trace leukocytes Continue PT/OT Fall precaution Consider placement to SNF (2) Hyponatremia: Possible related to HCTZ and poor oral intake Sodium of 129 on admission Received IVF Na improved to 133 today Continue monitor BMP Will monitor for fluid overload (3) Paroxysmal atrial fibrillation: rate controlled Continue Toprol INR 3.6 today Will decrease coumadin Monitor PT/INR (4) HTN (hypertension): BP elevated On Lasatan 50mg daily and Hydralazine Continue to holding HCTZ Hydralazine PRN prn Consider to increase Losartan to 100mg daily, if BP stays elevate Continue monitor BP (5) Dysuria: Complaint of burning with urination and strong smelling urine as per daughter Pt Just completed a course of oral abx 2 days ago UA only showed trace leukocytes, no bacteria Will check urine cx Will hold on further abx (6) Hypothyroidism: Continue levothyroxine (7) Iron deficiency anemia: Continue iron supplement (8) Diastolic dysfunction: Echo performed in August 2018 with preserved EF, grade 1 diastolic dysfunction Will monitor closely for overload (9) GERD (gastroesophageal reflux disease): Continue PPI DVT Ppx: Continue coumadin Code status: DNR Dispo: Consider placement to SNF Discharge Plan Discharge Items Reason For Visit: HYPONATREMIA,WEAKNESS Follow-up/Referrals: Erasto Burks DO [Primary Care Provider] - Prescriptions: No Action losartan 50 mg Tablet 50 mg PO DAILY RF: 0 aspirin [Aspir-81] 81 mg Tablet,Delayed Release (Dr/Ec) 81 mg PO DAILY RF: 0 acetaminophen 500 mg Tablet 500 mg PO DIRECTED PRN (Reason: Pain) RF: 0 omeprazole 20 mg Capsule,Delayed Release(Dr/Ec) 20 mg PO QAM RF: 0 gabapentin 100 mg Capsule 100 mg PO TID RF: 0 metoprolol succinate 25 mg Tablet Extended Release 24 Hr 25 mg PO DAILY RF: 0 cholecalciferol (vitamin D3) [Vitamin D3] 2,000 unit Capsule 2,000 unit PO DAILY RF: 0 cyanocobalamin (vitamin B-12) 1,000 mcg/mL Kit 1,000 mcg IM MONTHLY RF: 0 warfarin [Jantoven] 4 mg tablet 4 mg PO 2XWK RF: 0 levothyroxine 100 mcg tablet 100 mcg PO QAM RF: 0 ferrous sulfate [iron] 325 mg (65 mg iron) Tablet 325 mg PO DAILY RF: 0 warfarin [Jantoven] 2 mg tablet 2 mg PO 5XWK RF: 0 nitroglycerin [Nitrostat] 0.4 mg Tablet, Sublingual 0.4 mg sublingual DIRECTED PRN (Reason: Chest Pain) RF: 0 hydrochlorothiazide 12.5 mg capsule 12.5 mg PO DAILY RF: 0 Stand-Alone Forms: [facility] Admission Data Admit Date/Time: 03/27/19 20:37 Attending Provider: Papi Shankar Admit Provider: Oscar Fitch Primary Care Provider: Erasto Burks Other Providers: Oscar Fitch Service: Medical
[2019-03-29] MEDS ORDERED: HydrALAZINE HCL 20 MG/ML VIAL IV PRN (12:49)
[2019-03-29] MEDS: cefTRIAXone SODIUM 1,000 MG in DEXTROSE 5% 50 ML IV SCH (14:16)
[2019-03-29] MEDS ORDERED: WARFARIN SOD 2 MG TAB PO SCH (16:00)
--- NOTE | 2019-03-29 19:12 | Hospitalist Progress Note ---
Date of Service March 29, 2019 Assessment & Plan (1) Generalized weakness: Ambulatory dysfunction has been declined in the last few months UA negative for bacteria, trace leukocytes Continue PT/OT Fall precaution Consider placement to SNF (2) Hyponatremia: Possible related to HCTZ and poor oral intake Sodium of 129 on admission Received IVF Na improved to 134 today Continue monitor BMP Will monitor for fluid overload (3) Paroxysmal atrial fibrillation: rate controlled Continue Toprol INR 3.3 today Will decrease coumadin Monitor PT/INR (4) HTN (hypertension): BP elevated On Lasatan 50mg daily and Hydralazine Continue to holding HCTZ Hydralazine PRN prn Consider to increase Losartan to 100mg daily, if BP stays elevate Continue monitor BP (5) Dysuria: Complaint of burning with urination and strong smelling urine as per daughter Pt Just completed a course of oral abx 2 days ago UA only showed trace leukocytes, no bacteria Will check urine cx Will hold on further abx (6) Hypothyroidism: Continue levothyroxine (7) Iron deficiency anemia: Continue iron supplement (8) Diastolic dysfunction: Echo performed in August 2018 with preserved EF, grade 1 diastolic dysfunction Will monitor closely for overload (9) GERD (gastroesophageal reflux disease): Continue PPI DVT Ppx: Continue coumadin Code status: DNR Dispo: Consider placement to SNF Subjective Pt was seen and examined Sitting in bed with no distress Pt said that she feels much better Denies any chest pain, palpitation and SOB Physical Exam Physical Exam: General- No acute distress Head- atraumatic Eyes- PERRL, EOMI, ENT- decrease hearing function Neck- supple, no JVD Lungs- diminished BS Heart- regular rhythm; no murmur Abdomen- normal bowel sounds, soft, nontender Extremities- no calf tenderness Neuro- alert, oriented, PERRL, EOMI; no facial palsy; no dysarthria Skin- warm & dry Results & Data Vital Signs (Past 12 Hours) Vital Signs Temp Pulse Resp BP BP Pulse Ox 03/29/19 16:25 36.4 C L 64 153/85 H 96 03/29/19 14:30 78 163/64 H 03/29/19 10:53 79 182/87 H 03/29/19 07:24 36.4 C L 65 18 169/74 H 96
[2019-03-30] MEDS: LEVOTHYROXINE SODIUM 100 MCG TABLET PO SCH ×2 (06:00→06:15)
[2019-03-30 06:17] LABS: INR 2.7 (0.9-1.1); Prothrombin Time 25.9 Seconds (9.0-12.0)
[2019-03-30 06:36] LABS: BUN Creatinine Ratio 11.7 (10-20); Calcium 8.3 mg/dl (8.5-10.1); Creatinine Clr Calc Pharmacy 56.2 ml/min; Est GFR (African American) 90.3; Est GFR (Non-African American) 77.9; Potassium 3.6 mmol/L (3.5-5.1)
[2019-03-30] MEDS: SODIUM CHLORIDE 0.9% 1000ML 1,000 ML IV SCH (08:12)
[2019-03-30] MEDS: PANTOprazole 40 MG TAB PO SCH (08:13)
[2019-03-30] MEDS: ASPIRIN 81 MG ECTAB PO SCH (08:13)
[2019-03-30] MEDS: GABAPENTIN 100 MG CAP PO SCH ×3 (08:13→20:33)
[2019-03-30] MEDS: LOSARTAN POTASSIUM 50 MG TAB PO SCH (08:13)
[2019-03-30] MEDS: METOPROLOL SUCC 25MG EXT REL TAB PO SCH (08:14)
[2019-03-30] MEDS: FERROUS SULFATE 325 MG TAB PO SCH (08:14)
[2019-03-30] MEDS: CHOLECALCIFEROL 1,000 UNITS TAB PO SCH (08:14)
[2019-03-30] MEDS: cefTRIAXone SODIUM 1,000 MG in DEXTROSE 5% 50 ML IV SCH (13:08)
[2019-03-30] MEDS: WARFARIN SOD 4 MG TAB PO SCH (17:08)
--- NOTE | 2019-03-30 18:02 | Hospitalist Progress Note ---
Date of Service March 30, 2019 Assessment & Plan (1) Generalized weakness: Ambulatory dysfunction has been declined in the last few months Possible related to UTI Continue PT/OT Fall precaution Denies inpatient rehab bilingual case manager arranged for home bari services (2) Hyponatremia: Possible related to HCTZ and poor oral intake Sodium of 129 on admission Na improved to 136 today IVF discontinued Will check BMP in 1 week (3) Paroxysmal atrial fibrillation: rate controlled Continue Toprol INR 2.7 today Received coumadin 4 mg today Monitor PT/INR (4) HTN (hypertension): BP elevated will increase Losartan to 100mg daily and Hydralazine Continue to holding HCTZ Hydralazine PRN prn Continue monitor BP (5) Dysuria: Complaint of burning with urination and strong smelling urine as per daughter Pt Just completed a course of oral abx 2 days ago Urine cx positive for Ecoli Continue IV rocephin, will transition to oral keflex tomorrow (6) Hypothyroidism: Continue levothyroxine (7) Iron deficiency anemia: Continue iron supplement (8) Diastolic dysfunction: Echo performed in August 2018 with preserved EF, grade 1 diastolic dysfunction Will resume HCTZ in am (9) GERD (gastroesophageal reflux disease): Continue PPI DVT Ppx: Continue coumadin Code status: DNR Dispo: Discharge home tomorrow Subjective Pt was seen and examined Lying in bed with no distress Pt said that she feels much better Updates provided by family member Denies any chest pain, palpitation, dizziness and SOB Physical Exam Physical Exam: General- No acute distress Head- atraumatic Eyes- PERRL, EOMI, ENT- decrease hearing function Neck- supple, no JVD Lungs- diminished BS Heart- regular rhythm; no murmur Abdomen- normal bowel sounds, soft, nontender Extremities- no calf tenderness Neuro- alert, oriented, PERRL, EOMI; no facial palsy; no dysarthria Skin- warm & dry Results & Data Vital Signs (Past 12 Hours) Vital Signs Temp Pulse Resp BP BP Pulse Ox 03/30/19 15:55 36.6 C 63 19 178/65 H 96 03/30/19 09:55 156/79 H 03/30/19 07:26 36.5 C 59 L 18 157/69 H 96
[2019-03-30] MEDS: ACETAMINOPHEN 500 MG TAB PO PRN (20:38)
[2019-03-31] MEDS: LEVOTHYROXINE SODIUM 100 MCG TABLET PO SCH (05:01)
[2019-03-31 05:37] LABS: INR 2.3 (0.9-1.1); Prothrombin Time 22.2 Seconds (9.0-12.0)
[2019-03-31] MEDS: CHOLECALCIFEROL 1,000 UNITS TAB PO SCH (08:41)
[2019-03-31] MEDS: GABAPENTIN 100 MG CAP PO SCH ×2 (08:41→13:53)
[2019-03-31] MEDS: ASPIRIN 81 MG ECTAB PO SCH (08:42)
[2019-03-31] MEDS: FERROUS SULFATE 325 MG TAB PO SCH (08:43)
[2019-03-31] MEDS: PANTOprazole 40 MG TAB PO SCH (08:44)
[2019-03-31] MEDS: METOPROLOL SUCC 25MG EXT REL TAB PO SCH (08:44)
[2019-03-31] MEDS: LOSARTAN POTASSIUM 50 MG TAB PO SCH (08:45)
[2019-03-31] MEDS ORDERED: hydroCHLOROthiazide 25 MG TAB PO SCH (09:00)
[2019-03-31] MEDS: cefTRIAXone SODIUM 1,000 MG in DEXTROSE 5% 50 ML IV SCH (12:52)
[2019-03-31] MEDS: WARFARIN SOD 4 MG TAB PO SCH (15:54)
[2019-03-31] MEDS: ACETAMINOPHEN 500 MG TAB PO PRN (16:48)
--- NOTE | 2019-03-31 17:04 | Hospitalist Progress Note ---
Date of Service March 31, 2019 Assessment & Plan (1) Generalized weakness: Ambulatory dysfunction has been declined in the last few months Possible related to UTI Continue PT/OT Fall precaution Denies inpatient rehab case resource manager arranged for home bari services (2) Hyponatremia: Possible related to HCTZ and poor oral intake Sodium of 129 on admission Na improved to 136 IVF discontinued Will check BMP in 1 week (3) Paroxysmal atrial fibrillation: rate controlled Continue Toprol INR 2.3 today Continue coumadin Monitor PT/INR Follow up with the coag clinic (4) HTN (hypertension): BP elevated Consider to increase Losartan to 100mg daily Continue Hydralazine and HCTZ Hydralazine PRN prn Continue monitor BP (5) UTI (urinary tract infection): (6) Dysuria: Complaint of burning with urination and strong smelling urine as per daughter Pt Just completed a course of oral abx 2 days ago Urine cx positive for Ecoli Continue IV rocephin, will transition to oral keflex tomorrow (7) Hypothyroidism: Continue levothyroxine (8) Iron deficiency anemia: Continue iron supplement (9) Diastolic dysfunction: Echo performed in August 2018 with preserved EF, grade 1 diastolic dysfunction Will resume HCTZ in am (10) GERD (gastroesophageal reflux disease): Continue PPI Left Knee swelling Pt said that it is not new Denies any significant pain She does not want to get it aspirated because of the coumadin Will follow up as an outpatient if worsening DVT Ppx: Continue coumadin Code status: DNR Dispo: Discharge home today Follow up with the coumadin clinic Follow up with your primary care provider Dr. Huynh on 04/03 @ 11:05 AM Follow up with the coumadin clinic Fall precaution Monitor your blood pressure Subjective Pt was seen and examined Sitting in chair with no distress Pt said that she feels fine She said that she walked today with therapy She has swelling in her left knee She said the swelling is not new She said that she is not having pain in the left knee currently She does not want the knee to get drained because she is on the blood thinner Denies any chest pain, palpitation, dizziness and SOB Physical Exam Physical Exam: General- No acute distress Head- atraumatic Eyes- PERRL, EOMI, ENT- decrease hearing function Neck- supple, no JVD Lungs- diminished BS Heart- regular rhythm; no murmur Abdomen- normal bowel sounds, soft, nontender Extremities- no calf tenderness, Left knee swelling Neuro- alert, oriented, PERRL, EOMI; no facial palsy; no dysarthria Skin- warm & dry Results & Data Vital Signs (Past 12 Hours) Vital Signs Temp Pulse Resp BP BP Pulse Ox 03/31/19 15:27 36.5 C 68 18 160/69 H 98 03/31/19 08:45 92 H 146/67 H 97 03/31/19 07:31 36.5 C 52 L 18 170/83 H 95
--- NOTE | 2019-04-06 00:59 | Discharge Summary ---
Date of Service March 31, 2019 Admission HPI Per Admitting Provider Chief Complaint: Weakness, ambulatory dysfunction Primary Care Provider: Erasto Burks DO This is an 89-year-old female with a PMH of paroxysmal atrial fibrillation on Coumadin, HTN, history of CVA, venous stasis and other medical problems listed below who presents with generalized weakness and ambulatory dysfunction. Patient and her live with her daughter. Patient is normally able to ambulate independently but once in a while has difficulty "getting her legs to work," which family believes to be a residual deficit of previous stroke. Denies any recent falls. Earlier today, patient was confused and family was unable to move her into the house, so called EMS for further help. In the ED, patient found to be hypertensive due to missed medication doses earlier today. Sodium of 129. Has been taking hydrochlorothiazide regularly. Patient denies any other symptoms. No fever, chills, lightheadedness, visual changes, chest pain, palpitations, shortness of breath, nausea, vomiting, abdominal pain, dysuria, diarrhea or constipation. Admission Exam Per Admitting Provider General Appearance: WD/WN, no apparent distress, resting comfortably Head: normocephalic, atraumatic Eyes: normal inspection, PERRL, EOMI ENT: hard of hearing, pharynx normal Neck: supple, no JVD, no adenopathy Respiratory/Chest: lungs clear to auscultation. No wheezes, rales or rhonci. No respiratory distress or accessory muscle use Cardiovascular: regular rate, rhythm, no murmur, normal peripheral pulses, trace BLE edema Abdomen/GI: normal bowel sounds, soft, non-tender to palpation Extremities/Musculoskelatal: normal inspection, no calf tenderness, normal capillary refill, no pedal edema Neurologic/Psych: alert, normal mood/affect, oriented x 3 Skin: normal color, warm/dry Principal Diagnosis Hyponatremia Generalized weakness atrial fibrillation UTI (urinary tract infection) Hypertension Diastolic heart failure Iron deficiency anemia Left knee swelling Discharge Exam General- No acute distress Head- atraumatic Eyes- PERRL, EOMI, ENT- decrease hearing function Neck- supple, no JVD Lungs- diminished BS Heart- regular rhythm; no murmur Abdomen- normal bowel sounds, soft, nontender Extremities- no calf tenderness, Left knee swelling Neuro- alert, oriented, PERRL, EOMI; no facial palsy; no dysarthria Skin- warm & dry Discharge Data Allergies Allergy/AdvReac Type Severity Reaction Status Date / Time Cipro Allergy Unknown RASH,SEVERE Verified 03/14/18 21:16 HEADACHE ciprofloxacin Allergy Unknown RASH,SEVERE Verified 03/27/19 18:31 HEADACHE aspirin AdvReac Intermediate nose bleeds Verified 03/27/19 18:31 Sulfa (Sulfonamide AdvReac Unknown HEADACHE Verified 03/27/19 18:31 Antibiotics) WITH BACTRIM Consultations 03/27/19 20:24 ED Decision to Admit Stat Ordered Studies XR chest 1V portable CLINICAL HISTORY: weakness dyspnea COMPARISON STUDY: 08/18/2018 FINDINGS: Mild stable cardiomegaly. Fixed hiatal hernia. Chronic interstitial changes in the left base. Lungs otherwise appear clear. IMPRESSION: Chronic change. No acute process. The above report was generated using voice recognition software. It may contain grammatical, syntax or spelling errors. Electronically signed by: Stevie Ngo M.D. 03/27/2019 6:21 PM Dictated: 03/27/191820 Transcribed: 03/27/191820 Hospital Course (1) Generalized weakness: Ambulatory dysfunction has been declined in the last few months Possible related to UTI Continue PT/OT Fall precaution Denies inpatient rehab nurse case manager arranged for home bari services (2) Hyponatremia: Possible related to HCTZ and poor oral intake Sodium of 129 on admission Na improved to 136 IVF discontinued Will check BMP in 1 week (3) Paroxysmal atrial fibrillation: rate controlled Continue Toprol INR 2.3 today Continue coumadin Monitor PT/INR Follow up with the coag clinic (4) HTN (hypertension): BP elevated Consider to increase Losartan to 100mg daily Continue Hydralazine and HCTZ Hydralazine PRN prn Continue monitor BP (5) UTI (urinary tract infection): (6) Dysuria: Complaint of burning with urination and strong smelling urine as per daughter Pt Just completed a course of oral abx 2 days ago Urine cx positive for Ecoli Continue IV rocephin, will transition to oral keflex tomorrow (7) Hypothyroidism: Continue levothyroxine (8) Iron deficiency anemia: Continue iron supplement (9) Diastolic dysfunction: Echo performed in August 2018 with preserved EF, grade 1 diastolic dysfunction Will resume HCTZ in am (10) GERD (gastroesophageal reflux disease): Continue PPI Left Knee swelling Pt said that it is not new Denies any significant pain She does not want to get it aspirated because of the coumadin Will follow up as an outpatient if worsening DVT Ppx: Continue coumadin Code status: DNR Dispo: Discharge home today Follow up with the coumadin clinic Follow up with your primary care provider Dr. Huynh on 04/03 @ 11:05 AM Follow up with the coumadin clinic Fall precaution Monitor your blood pressure Total Time Total Time Spent Total Time Spent (In Minutes): 35 minutes Total Time Includes: Examination of the Patient, Discharge Planning, Medication Reconciliation, Communication With Other Providers and Other Discharge Plan Discharge Items Patient Disposition: Home - Home Health Services Reason For Visit: HYPONATREMIA,WEAKNESS Discharge Diagnosis: Hyponatremia Generalized weakness atrial fibrillation UTI (urinary tract infection) Hypertension Diastolic heart failure Iron deficiency anemia Left knee swelling Discharge Goals: Decrease discomfort, Improve disease control, Increase independence and Improve nutritional status Activity: Resume your previous activity Non-emergency contact: Primary Care Provider and Hospitalist Call non-emergency contact if: you have any medication questions, your pain is not controlled and your temperature is above 101 Follow-up/Referrals: Erasto Burks DO [Primary Care Provider] - Diet: Heart Healthy Addtl Provider Instructions: Discharge home today with home health services Follow up with your primary care provider Dr. Huynh on 04/03 @ 11:05 AM Follow up with the coumadin clinic (Monitor PT/INR) INR 2.3 today Outpatient follow up with your physician or orthopedic if the left knee swelling worsening Continue physical and occupational therapy Fall precaution Complete the course of the antibiotic (next dose tomorrow) Monitor your blood pressure and bring your blood pressure log at the next appointment with your physician Check BMP in 1 week to monitor electrolytes Prescriptions: Continued losartan 50 mg Tablet 50 mg PO DAILY RF: 0 aspirin [Aspir-81] 81 mg Tablet,Delayed Release (Dr/Ec) 81 mg PO DAILY RF: 0 acetaminophen 500 mg Tablet 500 mg PO DIRECTED PRN (Reason: Pain) RF: 0 omeprazole 20 mg Capsule,Delayed Release(Dr/Ec) 20 mg PO QAM RF: 0 gabapentin 100 mg Capsule 100 mg PO TID RF: 0 metoprolol succinate 25 mg Tablet Extended Release 24 Hr 25 mg PO DAILY RF: 0 cholecalciferol (vitamin D3) [Vitamin D3] 2,000 unit Capsule 2,000 unit PO DAILY RF: 0 cyanocobalamin (vitamin B-12) 1,000 mcg/mL Kit 1,000 mcg IM MONTHLY RF: 0 warfarin [Jantoven] 4 mg tablet 4 mg PO 2XWK RF: 0 levothyroxine 100 mcg tablet 100 mcg PO QAM RF: 0 ferrous sulfate [iron] 325 mg (65 mg iron) Tablet 325 mg PO DAILY RF: 0 warfarin [Jantoven] 2 mg tablet 2 mg PO 5XWK RF: 0 nitroglycerin [Nitrostat] 0.4 mg Tablet, Sublingual 0.4 mg sublingual DIRECTED PRN (Reason: Chest Pain) RF: 0 hydrochlorothiazide 12.5 mg capsule 12.5 mg PO DAILY RF: 0 Stand-Alone Forms: [facility] Discharge Orders: Discharge Order (Routine); Ordered 03/31/19 Ordered By: Papi Shankar Admission Data Admit Date/Time: 03/27/19 20:37 Attending Provider: Papi Shankar Admit Provider: Oscar Fitch Primary Care Provider: Erasto Burks Other Providers: Oscar Fitch Service: Medical Other Interventions: Discharge Summary Assessment (RN) Last Done: 03/31/19 17:23 DC Date/Time DO NOT enter until pt leaves facility: 03/31/19 18:16
== END 2019-03-31 18:16 | disposition home health service (06) | DRG 641 ==
LOC: ED 17:37 → 4W 20:37
DX: E87.1 Hypo-osmolality and hyponatremia; R53.1 Weakness; E03.9 Hypothyroidism, unspecified; Z79.82 Long term (current) use of aspirin; I48.0 Paroxysmal atrial fibrillation; Z79.01 Long term (current) use of anticoagulants; I50.32 Chronic diastolic (congestive) heart failure; B96.20 Unspecified Escherichia coli [E. coli] as the cause of diseases classified elsewhere; Z88.2 Allergy status to sulfonamides; I11.0 Hypertensive heart disease with heart failure; Z66 Do not resuscitate; K21.9 Gastro-esophageal reflux disease without esophagitis; Z80.1 Family history of malignant neoplasm of trachea, bronchus and lung; Z88.1 Allergy status to other antibiotic agents; N39.0 Urinary tract infection, site not specified; Z83.3 Family history of diabetes mellitus; Z88.6 Allergy status to analgesic agent; Z82.49 Family history of ischemic heart disease and other diseases of the circulatory system; D50.9 Iron deficiency anemia, unspecified

== ENCOUNTER 2019-05-04 22:40 | Inpatient (IN) ==
[2019-05-04] MEDS ORDERED: SODIUM CHLORIDE 0.9% 500 ML IV ONE (23:13)
[2019-05-04 23:33] LABS: Basophils # (auto) 0.02 K/uL (0-0.2); Basophils % (auto) 0.4 %; Eosinophils # (auto) 0.13 K/uL (0-0.5); Eosinophils % (auto) 2.3 %; Hematocrit (blood only) 40.4 % (37-47); Immature Granulocytes # (auto) 0.01 K/uL (0.00-0.02); Immature Granulocytes % (auto) 0.2 %; Mean Corpuscular Hemoglobin 28.6 pg (25-34); Mean Corpuscular Hgb Conc 34.7 g/dL (32-36); Mean Corpuscular Volume 82.6 fL (80-100); Mean Platelet Volume 10.7 fL (7.4-10.4); Monocytes # (auto) 0.63 K/uL (0.11-0.59); Monocytes % (auto) 11.3 %; Neutrophils % (auto) 60.8 %; Platelet Count 229 K/uL (130-400); RDW Coefficient of Variation 13.9 % (11.5-14.5); RDW Standard Deviation 41.5 fL (36.4-46.3); Red Blood Count 4.89 M/uL (4.2-5.4); White Blood Count 5.59 K/uL (4.8-10.8)
[2019-05-04 23:52] LABS: Alanine Aminotransferase 19 U/L (12-78); Albumin Level 3.3 gm/dl (3.4-5.0); Aspartate Aminotransferase 18 U/L (15-37); BUN Creatinine Ratio 16.3 (10-20); Blood Urea Nitrogen 13 mg/dl (7-18); Calcium 8.8 mg/dl (8.5-10.1); Carbon Dioxide 27 mmol/L (21-32); Chloride 96 mmol/L (98-107); Creatinine Clr Calc Pharmacy 42.5 ml/min; Est GFR (African American) 74.6; Est GFR (Non-African American) 64.4; Glucose 100 mg/dl (70-99); Magnesium 1.8 mg/dl (1.8-2.4); Sodium 132 mmol/L (136-145)
[2019-05-05 00:03] LABS: Albumin Globulin Ratio 0.8 (0.9-2); Alkaline Phosphatase 75 U/L (45-117); Bilirubin,Total 0.4 mg/dl (0.2-1); Globulin 4.3 gm/dl (2.5-4.0); Total Protein 7.6 gm/dl (6.4-8.2); Troponin I < 0.015 ng/ml (0-0.045)
[2019-05-05 00:05] LABS: Appearance Urine Clear (Clear); Bacteria Urine Automated 4+ (Negative); Bilirubin Urine Negative (Negative); Blood Urine 1+ (Negative); Color Urine Yellow; Epithelial Cell Urine Auto 0-5 /lpf (0-5); Glucose Urine UA Negative (Negative); Ketones Urine Negative (Negative); Leukocyte Esterase Urine 2+ (Negative); Nitrite Urine Positive (Negative); Protein Urine Trace (Negative); Specific Gravity Urine 1.016 (1.000-1.030); Urobilinogen Urine Negative (Negative); WBC Urine Automated >30 /hpf (0-5); pH Urine 6.5 (4.5-7.5)
[2019-05-05] MEDS ORDERED: cefTRIAXone SODIUM 1,000 MG/50 ML BAG IV STA (00:16)
[2019-05-05] MEDS ORDERED: SODIUM CHLORIDE 0.9% 500 ML IV ONE (00:36)
[2019-05-05 00:46] LABS: INR 2.8 (0.9-1.1); Prothrombin Time 26.6 Seconds (9.0-12.0)
[2019-05-05] MEDS ORDERED: POLYETHYLENE (MIRALAX) 17 GM PACK PO PRN (03:36)
[2019-05-05] MEDS ORDERED: NITROGLYCERIN SL 0.4 MG/TAB TAB SL PRN (03:36)
[2019-05-05] MEDS ORDERED: ONDANSETRON INJ 2 MG/ML 2 ML VIAL IV PRN (03:36)
[2019-05-05] MEDS: ACETAMINOPHEN 325 MG TAB PO PRN (03:58)
--- NOTE | 2019-05-05 04:37 | History and Physical Report ---
DATE OF ADMISSION: 05/05/2019 CHIEF COMPLAINT: Frequent falls. HISTORY OF PRESENT ILLNESS: This is an 89-year-old female with past medical history significant for falls and recurrent UTI, GERD, diastolic CHF, hypertension, paroxysmal atrial fibrillation on Coumadin, peripheral vascular disease, hypothyroidism, female stress incontinence, osteoporosis, venous stasis dermatitis in the right lower extremity, history of ulcer of the lower limb, iron deficiency anemia, presents with falls. The patient lives with her daughter and her . The patient was here in March with the weakness, ambulatory dysfunction, found to have a UTI, treated with Rocephin at that time with pansensitive E. coli and was discharged on 03/31/2019 to home with home health. The patient has 3 weeks of PT at home and today was the last day of home health nurse visit. She has poor vision and she walks with a walker. She only walks to the bathroom with some assistance and also to the porch, does not walk much at home. She fell today and she also fell a few times recently. That is the reason, the family brought her to the hospital and again she was found to have UTI. Currently, resting comfortable and hemodynamically stable. Complains of headache. Denies dizziness. Eyes, poor vision and hard of hearing. No sore throat, no difficulty swallowing. She eats regular food. Has occasional dry cough. No fever, no chills, no chest pain, no shortness of breath, no nausea, no abdominal pain. She has some burning micturition and increased frequency, but denies any hematuria. Normal bowel movements. No blood in the stools, no black stools. Has some slightly swelling of the right lower extremity. No erythema seen. ALLERGIES: CIPRO, ASPIRIN, SULFA ANTIBIOTICS. PAST MEDICAL HISTORY: As mentioned above. PAST SURGICAL HISTORY: Cystoscopy. MEDICATIONS: The patient is on Coumadin as directed, nitroglycerin 0.4 mg sublingual p.r.n., gabapentin 100 mg p.o. t.i.d., levothyroxine 100 mcg daily, Toprol-XL 25 mg p.o. daily, Cozaar 150 mg p.o. daily, ferrous sulfate 325 mg p.o. daily, omeprazole 20 mg p.o. daily, Colace 100 mg p.o. b.i.d. p.r.n., aspirin 81 mg p.o. daily, vitamin B12 1000 mcg injection every month, vitamin D 2000 units p.o. daily, Tylenol 500 mg p.o. q. 6 hours p.r.n. FAMILY HISTORY: Significant for: Father had diabetes, heart disorder, hypertension. Mother has hypertension, heart disorder. Brother has lung cancer. SOCIAL HISTORY: , lives with her daughter and . No smoking, no alcohol, no drug use. REVIEW OF SYMPTOMS: As per HPI. Rest of review of systems is negative. PHYSICAL EXAMINATION: GENERAL: The patient is old and frail, not in acute distress. VITAL SIGNS: Temperature 36.6, pulse 73, respiratory rate 19, blood pressure 164/94, oxygen 96% on room air. HEENT: No pallor, no icterus. Pupils sluggish to react to light. NECK: No JVD, no neck masses, no carotid bruits. CARDIOVASCULAR: S1, S2 heard, regular rate and rhythm, no murmur, no gallop. RESPIRATORY SYSTEM: Normal AP diameter. No accessory muscle use. No wheezing, no crackles. ABDOMEN: Soft, bowel sounds present, nontender. No distention. CENTRAL NERVOUS SYSTEM: Cranial nerves II-XII grossly nonfocal. EXTREMITIES: Right lower extremity, slightly swollen. No erythema seen. LABORATORY DATA: WBC 5.5, hemoglobin 14, hematocrit 40.4, platelets 229. PT 26.6, INR 2.8. Sodium 132, potassium 4, chloride 96, bicarbonate 27, BUN 13, creatinine 0.8, serum glucose 100, calcium 8.8, magnesium 1.8, total bilirubin 0.4, AST 18, ALT 19, alkaline phosphatase 74. Troponin I less than 0.015. TSH 3.6. Urinalysis positive for nitrite and leukocyte esterase. Knee x ray official reading pending. Chest x-ray: No acute findings seen. EKG: Normal sinus rhythm, rate of 70, no acute ST changes seen. ASSESSMENT AND PLAN: This is an 89-year-old female who presents with recurrent falls and recurrent urinary tract infection. 1. Falls, recurrent urinary tract infection, deconditioning from hospitalizations and recurrent urinary tract infections, will place on IV Rocephin. Follow the cultures. Consider ID or urology consult for recurrent UTI PT and OT. The patient may need placement .Social service to help with discharge planning. 2. Right lower extremity slightly swollen. The patient is on Coumadin. INR therapeutic. Will monitor 3. History of chronic diastolic congestive heart failure, on HCTZ. We will follow for any volume overload. 4. Hyponatremia. Sodium of 132. Last hctz was held for sodium of 129 and was restarted on discharge. We will follow the labs. 5. Hypertension. Continue losartan, hydrochlorothiazide and Toprol-XL. We will monitor the blood pressure. 6. History of paroxysmal atrial fibrillation, rate controlled with Toprol-XL and Coumadin. INR therapeutic. 7. Peripheral vascular disease, on aspirin and Coumadin. 8. Hypothyroidism, on Synthroid. 9. Iron deficiency anemia, on iron and ferrous sulfate. 10. Gastroesophageal reflux disease. PPI. 11. History of left knee swelling. We will follow the x-ray. 12. Deep venous thrombosis prophylaxis, on Coumadin. INR therapeutic. Code status. Full code only if there is a chance of recovery. 13. Disposition: Admit to medical floor. PT and OT. Social Service to help with discharge planning, may need placement. [place]
--- NOTE | 2019-05-05 05:01 | Emergency Department Note ---
Entered by Shanelle Valadez acting as a scribe for History of Present Illness General Chief complaint: Fall Time Seen by Provider: 05/04/19 22:58 Source: patient and family History of Present Illness Provider complaint: fall Onset (ago): hour(s) (prior to arrival) Location: lower extremity, left and right Severity: similar to prior episodes Quality: + other (fall) Associated symptoms: + weakness and + other (Negative head trauma; no shoulder truama; ); no syncope The patient, who is a year old female with a medical history of generalized weakness, female stress incontinence, and UTI, presents to the Emergency Room with complaints of a falling episode that happened a couple hours prior to arrival. The patient states that in her bedroom she felt weakness in her knees and then fell forward onto her knees. Patient complains of pain at the left knee, no other pain or injury. The patient reports that she was using her walker during the time of the incident. The patient explains that she has had lower extremity issues for years. The patient reports that she has had numbness and tingling in her lower extremities for years. The patient expresses that her knees and a section of her head are normally swollen due to cysts. The patient denies head trauma and syncope. The patient's family sates that the patient had an UTI episode in March with a similar presentation. They are concerned about recurrent UTI. They feel patient's ability to walk has been deteriorating over the last several months but is been worse in the last 2 days again. The patient's family states that she the patient has been experiencing weakness for a week. The patient's family explains that the patient continuously has urinary incontinence and has seen a urologist for this issue. The family observes that the patient gets worse once she completes her antibiotics. The patient's family denies that the patient had a recent medication change. The patient's family reports that the patient had physical therapy for 3 weeks that was deemed unsuccessful. They also state patient has had several falls over the last several months. The patient's family states that she is on Coumadin. Home Medications Home Medications Medication Instructions Recorded Confirmed Type acetaminophen 500 mg PO DIRECTED PRN 08/18/18 05/04/19 History aspirin [Aspir-81] 81 mg PO DAILY 08/18/18 05/04/19 History cholecalciferol (vitamin D3) 2,000 unit PO DAILY 08/18/18 05/04/19 History [Vitamin D3] cyanocobalamin (vitamin B-12) 1,000 mcg IM MONTHLY 08/18/18 05/04/19 History gabapentin 100 mg PO TID 08/18/18 05/04/19 History losartan 50 mg PO DAILY 08/18/18 05/04/19 History metoprolol succinate 25 mg PO DAILY 08/18/18 05/04/19 History omeprazole 20 mg PO QAM 08/18/18 05/04/19 History ferrous sulfate [iron] 325 mg PO DAILY 03/27/19 05/04/19 History hydrochlorothiazide 12.5 mg PO DAILY 03/27/19 05/04/19 History levothyroxine 100 mcg PO QAM 03/27/19 05/04/19 History nitroglycerin [Nitrostat] 0.4 mg SUBLINGUAL DIRECTED PRN 03/27/19 05/04/19 History warfarin [Jantoven] 2 mg PO 5XWK 03/27/19 05/04/19 History warfarin [Jantoven] 4 mg PO 2XWK 03/27/19 05/04/19 History Allergies Allergy/AdvReac Type Severity Reaction Status Date / Time Cipro Allergy Unknown RASH,SEVERE Verified 03/14/18 21:16 HEADACHE ciprofloxacin Allergy Unknown RASH,SEVERE Verified 05/04/19 23:40 HEADACHE aspirin AdvReac Intermediate nose bleeds Verified 05/04/19 23:40 Sulfa (Sulfonamide AdvReac Unknown HEADACHE Verified 05/04/19 23:40 Antibiotics) WITH BACTRIM Past Med/Surg History Medical History Hypothyroidism (Chronic) Female stress incontinence (Chronic) Iron deficiency anemia (Chronic) Chronic venous stasis (Chronic) Diastolic dysfunction (Chronic) GERD (gastroesophageal reflux disease) (Chronic) Paroxysmal atrial fibrillation (Chronic) HTN (hypertension) (Chronic) Surgical History History of cystoscopy (Resolved) Family History Other Diabetes Hypertension Lung cancer Social History Preferred Language: Swedish Communication Ability: Effective Stopper 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 and A total of 10 systems reviewed and were otherwise negative Physical Exam Vital Signs Vital Signs - 24 hr 05/04/19 22:47 05/04/19 23:29 05/05/19 00:47 Temperature 36.6 C Temperature Source Oral Sepsis Recent Fever Within 48 Hours No Sepsis New/Unexplained Change in Mental Status No Sepsis Action Taken by Nursing No Action Required Pulse Rate 69 Pulse Rate [Apical] 65 68 Pulse Rate from SpO2 Sensor Respiratory Rate 18 20 13 Respiratory Effort / Characteristics Non-Labored Non-Labored Respiratory Depth Normal Normal Normal Blood Pressure 180/93 H Blood Pressure [Right Arm] 161/85 H 166/81 H Blood Pressure Mean 122 Blood Pressure Mean [Right Arm] 110 109 Blood Pressure Position [Right Arm] Lying Pulse Oximetry 96 95 96 Oxygen Delivery Method Room Air Room Air Room Air 05/05/19 00:50 05/05/19 01:00 05/05/19 02:00 Temperature Temperature Source Sepsis Recent Fever Within 48 Hours Sepsis New/Unexplained Change in Mental Status Sepsis Action Taken by Nursing Pulse Rate 80 68 67 Pulse Rate [Apical] Pulse Rate from SpO2 Sensor 64 68 Respiratory Rate 17 17 18 Respiratory Effort / Characteristics Respiratory Depth Blood Pressure 166/81 H 173/81 H 177/87 H Blood Pressure [Right Arm] Blood Pressure Mean 109 111 117 Blood Pressure Mean [Right Arm] Blood Pressure Position [Right Arm] Pulse Oximetry 96 96 Oxygen Delivery Method 05/05/19 03:01 Temperature Temperature Source Sepsis Recent Fever Within 48 Hours Sepsis New/Unexplained Change in Mental Status Sepsis Action Taken by Nursing Pulse Rate 73 Pulse Rate [Apical] Pulse Rate from SpO2 Sensor Respiratory Rate 19 Respiratory Effort / Characteristics Respiratory Depth Blood Pressure 164/94 H Blood Pressure [Right Arm] Blood Pressure Mean 117 Blood Pressure Mean [Right Arm] Blood Pressure Position [Right Arm] Pulse Oximetry Oxygen Delivery Method GENERAL: alert, well appearing, well nourished, no distress, non-toxic HEAD: normal cephalic, atraumatic, no sanchez sign, no raccoon eyes EYE EXAM: normal conjunctiva, PERRL and EOM's grossly intact OROPHARYNX: no exudate, no erythema, lips, buccal mucosa, and tongue normal and mucous membranes are moist EARS: TMs clear b/l without hemotympanum, no edema along the canals NECK: supple, no nuchal rigidity, no adenopathy, non-tender CHEST: stable to compression anteriorly and posteriorly LUNGS: clear to auscultation. Normal chest wall mechanics, no w/r/r HEART: no murmurs, S1 normal and S2 normal ABDOMEN: abdomen soft, non-tender, normo-active bowel sounds, no masses, no rebo und or guarding. PELVIS: stable to compression anteriorly and posteriorly BACK: Back is symmetrical on inspection and there is no deformity, no midline tenderness, no CVA tenderness. UPPER EXTREMITIES: full active and passive range of motion of all joints without tenderness to palpation, nml pulses b/l, no deformities LOWER EXTREMITIES: full active and passive range of motion of all joints without tenderness to palpation. 1+ lower extremity edema. Cyst noted pre patellar region, no contusion, no joint effusion, no deformity. NEURO EXAM: Normal sensorium, cranial nerves II-XII grossly intact, normal speech, no gross weakness of arms, no gross weakness of legs. GCS: 15. Course 2259: Past medical records reviewed. The patient was evaluated in room B6. A complete history and physical exam was performed. 0023: I reassessed the patient and updated her test results with her. IV antibiotics have been administered. 0147: I talked to the assigned nurse who states that the patient had difficulty getting up from stretcher but she was able to walk slowly. Family states this is still worse than her baseline concerned about her ability to walk at home. 0223: I reviewed the patient's case with Hawa Gates. He will evaluate the patient for further management. Consultations Consultation #1: I reviewed the patient's case with Hawa Gates. He will evaluate the patient for further management. Time: 02:23 Administered Medications Acetaminophen (Tylenol) 650 mg PO Q4H PRN PRN Reason: pain/fever Stop: 06/04/19 03:35 Last Admin: 05/05/19 03:58 Dose: 650 mg Documented by: [id number] Discontinued Medications Sodium Chloride (Nss) 500 mls @ 999 mls/hr IV .Q31M ONE Stop: 05/04/19 23:43 Last Infusion: 05/05/19 00:30 Dose: 0 mls/hr Documented by: [id number] Admin: 05/04/19 23:27 Dose: 999 mls/hr Documented by: [id number] Ceftriaxone Sodium (Rocephin) 1,000 mg in 50 mls @ 100 mls/hr IV NOW STA Stop: 05/05/19 00:45 Last Infusion: 05/05/19 00:54 Dose: 0 mls/hr Documented by: [id number] Admin: 05/05/19 00:25 Dose: 100 mls/hr Documented by: [id number] Sodium Chloride (Nss) 500 mls @ 999 mls/hr IV .Q31M ONE Stop: 05/05/19 01:06 Last Infusion: 05/05/19 01:42 Dose: 0 mls/hr Documented by: [id number] Admin: 05/05/19 00:43 Dose: 999 mls/hr Documented by: [id number] Medical Decision Making Differential Diagnosis Differential diagnosis includes: fracture, dislocation, intra-abdominal, pneumothorax, intrathoracic, intracranial, neurologic, as well as other traumatic pathologies were entertained. Medical Records Attestation: I reviewed the patient's medical records. Home Medications Current Medication List: was personally reviewed by me Laboratory Data Attestation: I reviewed the patient's lab results. Result diagrams: 05/04/19 23:17 05/04/19 23:17 Lab Results 05/04/19 05/04/19 05/04/19 Range/Units 23:17 23:17 23:50 WBC 5.59 (4.8-10.8) K/uL RBC 4.89 (4.2-5.4) M/uL Hgb 14.0 (12.0-16.0) g/dL Hct 40.4 (37-47) % MCV 82.6 (80-100) fL MCH 28.6 (25-34) pg MCHC 34.7 (32-36) g/dL RDW Std Deviation 41.5 (36.4-46.3) fL RDW Coeff of Evelio 13.9 (11.5-14.5) % Plt Count 229 (130-400) K/uL MPV 10.7 H (7.4-10.4) fL Immature Gran % (Auto) 0.2 % Neut % (Auto) 60.8 % Lymph % (Auto) 25.0 % [place] % (Auto) 11.3 % Eos % (Auto) 2.3 % Baso % (Auto) 0.4 % Immature Gran # (Auto) 0.01 (0.00-0.02) K/uL Neut # (Auto) 3.40 (1.4-6.5) K/uL Lymph # (Auto) 1.40 (1.2-3.4) K/uL [place] # (Auto) 0.63 H (0.11-0.59) K/uL Eos # (Auto) 0.13 (0-0.5) K/uL Baso # (Auto) 0.02 (0-0.2) K/uL PT (9.0-12.0) Seconds INR (0.9-1.1) Sodium 132 L (136-145) mmol/L Potassium 4.0 (3.5-5.1) mmol/L Chloride 96 L (98-107) mmol/L Carbon Dioxide 27 (21-32) mmol/L Anion Gap 9.0 (3-11) BUN 13 (7-18) mg/dl Creatinine 0.81 (0.6-1.2) mg/dl Est Cr Clr Drug Dosing 42.5 ml/min Est GFR ( Amer) 74.6 Est GFR (Non-Af Amer) 64.4 BUN/Creatinine Ratio 16.3 (10-20) Glucose 100 H (70-99) mg/dl Calcium 8.8 (8.5-10.1) mg/dl Magnesium 1.8 (1.8-2.4) mg/dl Total Bilirubin 0.4 (0.2-1) mg/dl AST 18 (15-37) U/L ALT 19 (12-78) U/L Alkaline Phosphatase 75 (45-117) U/L Troponin I < 0.015 (0-0.045) ng/ml Total Protein 7.6 (6.4-8.2) gm/dl Albumin 3.3 L (3.4-5.0) gm/dl Globulin 4.3 H (2.5-4.0) gm/dl Albumin/Globulin Ratio 0.8 L (0.9-2) TSH 3.630 (0.300-4.500) uIu/ml Urine Color Yellow Urine Appearance Clear (Clear) Urine pH 6.5 (4.5-7.5) Ur Specific [place] 1.016 (1.000-1.030) Urine Protein Trace H (Negative) Urine Glucose (UA) Negative (Negative) Urine Ketones Negative (Negative) Urine Blood 1+ H (Negative) Urine Nitrite Positive A (Negative) Urine Bilirubin Negative (Negative) Urine Urobilinogen Negative (Negative) Ur Leukocyte Esterase 2+ H (Negative) Urine WBC (Auto) >30 H (0-5) /hpf Urine RBC (Auto) 5-10 H (0-4) /hpf U Hyaline Cast (Auto) 5-10 H (0-5) /lpf U Epithel Cells (Auto) 0-5 (0-5) /lpf Urine Bacteria (Auto) 4+ H (Negative) 05/05/19 Range/Units 00:21 WBC (4.8-10.8) K/uL RBC (4.2-5.4) M/uL Hgb (12.0-16.0) g/dL Hct (37-47) % MCV (80-100) fL MCH (25-34) pg MCHC (32-36) g/dL RDW Std Deviation (36.4-46.3) fL RDW Coeff of Evelio (11.5-14.5) % Plt Count (130-400) K/uL MPV (7.4-10.4) fL Immature Gran % (Auto) % Neut % (Auto) % Lymph % (Auto) % [place] % (Auto) % Eos % (Auto) % Baso % (Auto) % Immature Gran # (Auto) (0.00-0.02) K/uL Neut # (Auto) (1.4-6.5) K/uL Lymph # (Auto) (1.2-3.4) K/uL [place] # (Auto) (0.11-0.59) K/uL Eos # (Auto) (0-0.5) K/uL Baso # (Auto) (0-0.2) K/uL PT 26.6 H (9.0-12.0) Seconds INR 2.8 H (0.9-1.1) Sodium (136-145) mmol/L Potassium (3.5-5.1) mmol/L Chloride (98-107) mmol/L Carbon Dioxide (21-32) mmol/L Anion Gap (3-11) BUN (7-18) mg/dl Creatinine (0.6-1.2) mg/dl Est Cr Clr Drug Dosing ml/min Est GFR ( Amer) Est GFR (Non-Af Amer) BUN/Creatinine Ratio (10-20) Glucose (70-99) mg/dl Calcium (8.5-10.1) mg/dl Magnesium (1.8-2.4) mg/dl Total Bilirubin (0.2-1) mg/dl AST (15-37) U/L ALT (12-78) U/L Alkaline Phosphatase (45-117) U/L Troponin I (0-0.045) ng/ml Total Protein (6.4-8.2) gm/dl Albumin (3.4-5.0) gm/dl Globulin (2.5-4.0) gm/dl Albumin/Globulin Ratio (0.9-2) TSH (0.300-4.500) uIu/ml Urine Color Urine Appearance (Clear) Urine pH (4.5-7.5) Ur Specific [place] (1.000-1.030) Urine Protein (Negative) Urine Glucose (UA) (Negative) Urine Ketones (Negative) Urine Blood (Negative) Urine Nitrite (Negative) Urine Bilirubin (Negative) Urine Urobilinogen (Negative) Ur Leukocyte Esterase (Negative) Urine WBC (Auto) (0-5) /hpf Urine RBC (Auto) (0-4) /hpf U Hyaline Cast (Auto) (0-5) /lpf U Epithel Cells (Auto) (0-5) /lpf Urine Bacteria (Auto) (Negative) Imaging Data Attestation: I personally reviewed and interpreted this imaging study as follows: My Impression: Chest XRAY 1 View Chest No pneumothorax. No fracture. Cardiomegaly noted. No pleural effusion. No focal consolidation. Pelvis XRAY: 2 view No acute fracture dislocation Left knee XRAY: 3 view No acute fracture dislocation ECG Data Attestation: I personally reviewed and interpreted this ECG as follows: Indication: weakness Rate (beats per minute): 70 Rhythm: sinus rhythm Findings: + other (Normal axis; Normal intervals; Low voltage throughout); no acute ischemic change and no ectopy Blood Pressure Blood Pressure Findings: Elevated blood pressure Blood Pressure Disposition: further management by hospitalist MDM Narrative Patient well-appearing here despite complaints. No evidence of acute traumatic injury and I have a low suspicion for any occult trauma. Patient found to have urinary tract infection. No evidence of bacteremia/sepsis, or renal dysfunction. I do not suspect other obstructive uropathy. Patient given 1 g of IV Rocephin after review of prior urine cultures within the last year including sensitivities. Given patient's continued ambulatory dysfunction, reports of weakness despite IV fluids and antibiotics here, and concern for safety going home given history of falls, case discussed with hospitalist for additional evaluation and management. Patient's other labs reassuring, she was given gentle IV fluid rehydration. INR is therapeutic. Patient was hemodynamically stable throughout. Patient and family aware of all results and in agreement with plan as they are concerned about her fall risk. Impression & Plan UTI (urinary tract infection), Weakness, Fall, Ambulatory dysfunction Discharge Plan Visit Data *Final* Discharge Date/Time: 05/05/19 03:27 Chief Complaint: Fall ED Provider: Ava Colon Discharge Problem: UTI (urinary tract infection), Weakness, Fall, Ambulatory dysfunction Patient Disposition: Admitted As Inpatient Discharge Instructions Interventions: ED Discharge Assessment Last Done: 05/05/19 03:27 Discharge Problem: UTI (urinary tract infection) Qualifiers: Urinary tract infection type: acute cystitis Hematuria presence: with hematuria Qualified Code(s): N30.01 - Acute cystitis with hematuria Fall Qualifiers: Encounter type: initial encounter Qualified Code(s): W19.XXXA - Unspecified fall, initial encounter The scribe's documentation has been prepared under my direction and personally reviewed by me in its entirety. I confirm that the note above accurately reflects all work, treatment, procedures, and medical decision making performed by me.
[2019-05-05] MEDS: LEVOTHYROXINE SODIUM 100 MCG TABLET PO SCH (06:05)
--- NOTE | 2019-05-05 07:24 | XRay Report ---
LEFT KNEE 3 VIEWS HISTORY: Left knee pain. trauma COMPARISON: Left knee 03/16/2018. FINDINGS: There is no fracture or dislocation. No significant knee effusion. Prepatellar soft tissue swelling. Vascular calcifications are again noted. 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 S table 7 mm calcification/radiopaque foreign body within the distal medial thigh. Moderate cartilage s pace narrowing within the medial compartment of the knee. IMPRESSION: Anterior soft tissue swelling. No fractures. Electronically signed by: Carlos Sales M.D. 05/05/2019 7:23 AM
--- NOTE | 2019-05-05 07:27 | XRay Report ---
XR chest 1V portable HISTORY: fall COMPARISON: Chest 03/27/2019. FINDINGS: No pneumothorax. No pleural effusions. A few bibasilar linear densities favor subsegmental atelectasis. The lungs are otherwise clear. The heart remains mildly enlarged. A large hiatus hernia, unchanged. Calcified and tortuous thoracic aorta is again noted. IMPRESSION: No significant change compared to the prior study. No acute process. Electronically signed by: Carlos Sales M.D. 05/05/2019 7:25 AM
--- NOTE | 2019-05-05 07:28 | XRay Report ---
AP PELVIS ONE VIEW HISTORY: Pelvic pain. Fall. trauma COMPARISON: Pelvis 03/16/2018. FINDINGS: There is no fracture or dislocation. Soft tissues are unremarkable. The sacrum appears inta ct. Mild degenerative changes within the hips and bilateral sacroiliac joints. The bones remain osteo penic. IMPRESSION: No acute fracture or dislocation within the pelvis or hips. Electronically signed by: Carlos Sales M.D. 05/05/2019 7:27 AM
[2019-05-05 08:29] LABS: INR 2.8 (0.9-1.1); Prothrombin Time 26.5 Seconds (9.0-12.0)
[2019-05-05] MEDS: FERROUS SULFATE 325 MG TAB PO SCH (09:10)
[2019-05-05] MEDS: hydroCHLOROthiazide 25 MG TAB PO SCH (09:10)
[2019-05-05] MEDS: ASPIRIN 81 MG ECTAB PO SCH (09:10)
[2019-05-05] MEDS: LOSARTAN POTASSIUM 50 MG TAB PO SCH (09:10)
[2019-05-05] MEDS: PANTOprazole 40 MG TAB PO SCH (09:11)
[2019-05-05] MEDS: GABAPENTIN 100 MG CAP PO SCH ×3 (09:11→21:01)
[2019-05-05] MEDS: METOPROLOL SUCC 25MG EXT REL TAB PO SCH (09:11)
[2019-05-05] MEDS: CHOLECALCIFEROL 1,000 UNITS TAB PO SCH (09:12)
--- NOTE | 2019-05-05 11:40 | Hospitalist Progress Note ---
Date of Service May 05, 2019 Assessment & Plan (1) Ambulatory dysfunction: Has been having problem with ambulation for a while He does not have any significant arthritis causing any acute pain Generalized weakness She will need physical therapy and Occupational Therapy and likely to be placed for rehab (2) UTI (urinary tract infection): UA suggestive of infection Started on ceftriaxone Await culture and sensitivity Present on Admission?: Yes (3) Hypothyroidism: Continue replacement (4) Diastolic dysfunction: No fluid overload (5) Paroxysmal atrial fibrillation: Heart rate is controlled Continue beta-ambrose Denies any symptoms Has been on Coumadin and INR is therapeutic CODE STATUS Full Subjective 05/05 The patient was seen and examined in medical floor She complains to have some burning with urination Denies any fever and/or chills Her main symptoms remains ambulatory dysfunction Review of Systems Review of Systems: All systems reviewed and are unremarkable except as noted below Constitutional: + weakness and + problem reported (Problem with ambulation) Musculoskeletal: No acute arthritis in any of the joints Physical Exam Physical Exam: Sitting at the age of the bed without any distress Constitutional: no acute distress and not ill appearing Eyes: PERRL, conjunctivae normal, anicteric sclerae ENMT: external ear and nose normal, oropharynx normal Neck: trachea midline, no thyromegaly Respiratory: normal respiratory effort; no respiratory distress Auscultation: + diminished lung sounds (Minimal crackles at the bases) Cardiovascular: Rate/Rhythm: regular rate and regular rhythm Extremities: + edema (Trace edema bilaterally) Gastrointestinal (Abdomen): Inspection/Auscultation: normal bowel sounds Percussion/Palpation: abdomen soft Neurologic: moves all extremities Lymphatic: no cervical or axillary lymphadenopathy Results & Data Vital Signs (Past 12 Hours) Vital Signs Temp Pulse Pulse Pulse Pulse Resp BP 05/05/19 09:08 83 05/05/19 07:37 36.4 C L 66 16 05/05/19 04:00 36.4 C L 68 16 05/05/19 03:01 73 19 164/94 H 05/05/19 02:00 67 18 177/87 H 05/05/19 01:00 68 17 173/81 H 05/05/19 00:50 80 17 166/81 H 05/05/19 00:47 68 13 BP BP Pulse Ox 05/05/19 09:08 166/88 H 05/05/19 07:37 190/99 H 98 05/05/19 04:00 163/78 H 96 05/05/19 03:01 05/05/19 02:00 96 05/05/19 01:00 05/05/19 00:50 96 05/05/19 00:47 166/81 H 96 Laboratory Results Short CBC 05/04/19 Range/Units 23:17 WBC 5.59 (4.8-10.8) K/uL Hgb 14.0 (12.0-16.0) g/dL Hct 40.4 (37-47) % Plt Count 229 (130-400) K/uL BMP 05/04/19 23:17 Sodium 132 L Potassium 4.0 Chloride 96 L Carbon Dioxide 27 BUN 13 Creatinine 0.81 Glucose 100 H Calcium 8.8 Cardiac Enzymes 05/04/19 Range/Units 23:17 Troponin I < 0.015 (0-0.045) ng/ml Liver Function 05/04/19 Range/Units 23:17 Total Bilirubin 0.4 (0.2-1) mg/dl AST 18 (15-37) U/L ALT 19 (12-78) U/L Alkaline Phosphatase 75 (45-117) U/L Albumin 3.3 L (3.4-5.0) gm/dl Urine 05/04/19 Range/Units 23:50 Urine Color Yellow Urine Appearance Clear (Clear) Urine pH 6.5 (4.5-7.5) Ur Specific [place] 1.016 (1.000-1.030) Urine Protein Trace H (Negative) Urine Glucose (UA) Negative (Negative) Medications Administered Current Inpatient Medications Acetaminophen (Tylenol) 650 mg PO Q4H PRN PRN Reason: pain/fever Stop: 06/04/19 03:35 Last Admin: 05/05/19 03:58 Dose: 650 mg Documented by: Aspirin (Ecotrin Ectab) 81 mg PO DAILY [facility] Stop: 06/04/19 08:59 Last Admin: 05/05/19 09:10 Dose: 81 mg Documented by: Ferrous Sulfate (Feosol) 325 mg PO DAILY [facility] Stop: 06/04/19 08:59 Last Admin: 05/05/19 09:10 Dose: 325 mg Documented by: Gabapentin (Neurontin) 100 mg PO TID [facility] Stop: 06/04/19 08:59 Last Admin: 05/05/19 09:11 Dose: 100 mg Documented by: Hydrochlorothiazide (Hctz) 12.5 mg PO DAILY [facility] Stop: 06/04/19 08:59 Last Admin: 05/05/19 09:10 Dose: 12.5 mg Documented by: Ceftriaxone Sodium 1,000 mg/ (Dextrose) 50 mls @ 100 mls/hr IV Q24H [facility]; Protocol Stop: 05/14/19 21:59 Levothyroxine Sodium (Synthroid) 100 mcg PO DAILYBB [facility] Stop: 06/04/19 06:29 Last Admin: 05/05/19 06:05 Dose: 100 mcg Documented by: Losartan Potassium (Cozaar) 50 mg PO DAILY [facility] Stop: 06/04/19 08:59 Last Admin: 05/05/19 09:10 Dose: 50 mg Documented by: Metoprolol Succinate (Toprol Xl) 25 mg PO DAILY [facility] Stop: 06/04/19 08:59 Last Admin: 05/05/19 09:11 Dose: 25 mg Documented by: Nitroglycerin (Nitrostat) 0.4 mg SL UD PRN PRN Reason: Chest Pain Stop: 06/04/19 03:35 Ondansetron HCl (Zofran) 4 mg IV Q6H PRN PRN Reason: Nausea Stop: 06/04/19 03:35 Pantoprazole Sodium (Protonix) 40 mg PO QAM [facility] Stop: 06/04/19 08:59 Last Admin: 05/05/19 09:11 Dose: 40 mg Documented by: Polyethylene Glycol (Miralax Powder Packet) 17 gm PO DAILY PRN PRN Reason: Constipation Stop: 06/04/19 03:35 Vitamin D (Vitamin D3) 2,000 units PO DAILY [facility] Stop: 06/04/19 08:59 Last Admin: 05/05/19 09:12 Dose: 2,000 units Documented by: Warfarin Sodium (Coumadin) 4 mg PO [id number]@1600 [facility] Stop: 06/05/19 15:59 Warfarin Sodium (Coumadin) 2 mg PO [id number]@1600 [facility] Stop: 06/04/19 15:59 (1) UTI (urinary tract infection) Hematuria presence: with hematuria Urinary tract infection type: acute cystitis Qualified Code(s): N30.01 - Acute cystitis with hematuria
[2019-05-05] MEDS ORDERED: WARFARIN SOD 2 MG TAB PO SCH (16:00)
[2019-05-05] MEDS ORDERED: cefTRIAXone SODIUM 1,000 MG in DEXTROSE 5% 50 ML IV SCH (22:00)
[2019-05-06] MEDS: LEVOTHYROXINE SODIUM 100 MCG TABLET PO SCH (05:55)
[2019-05-06 07:12] LABS: Basophils # (auto) 0.03 K/uL (0-0.2); Basophils % (auto) 0.7 %; Eosinophils # (auto) 0.14 K/uL (0-0.5); Eosinophils % (auto) 3.3 %; Hemoglobin 13.7 g/dL (12.0-16.0); Immature Granulocytes # (auto) 0.01 K/uL (0.00-0.02); Immature Granulocytes % (auto) 0.2 %; Lymphocytes # (auto) 1.15 K/uL (1.2-3.4); Lymphocytes % (auto) 26.9 %; Mean Corpuscular Hemoglobin 28.7 pg (25-34); Mean Corpuscular Hgb Conc 35.1 g/dL (32-36); Mean Corpuscular Volume 81.8 fL (80-100); Mean Platelet Volume 10.3 fL (7.4-10.4); Monocytes # (auto) 0.54 K/uL (0.11-0.59); Monocytes % (auto) 12.6 %; Neutrophils # (auto) 2.41 K/uL (1.4-6.5); Neutrophils % (auto) 56.3 %; Platelet Count 223 K/uL (130-400); RDW Coefficient of Variation 13.6 % (11.5-14.5); RDW Standard Deviation 40.7 fL (36.4-46.3); Red Blood Count 4.77 M/uL (4.2-5.4); White Blood Count 4.28 K/uL (4.8-10.8)
[2019-05-06 07:18] LABS: INR 2.8 (0.9-1.1); Prothrombin Time 26.5 Seconds (9.0-12.0)
[2019-05-06 07:37] LABS: BUN Creatinine Ratio 13.7 (10-20); Calcium 9.1 mg/dl (8.5-10.1); Creatinine Clr Calc Pharmacy 50.6 ml/min; Est GFR (African American) 89.9; Est GFR (Non-African American) 77.6; Magnesium 1.8 mg/dl (1.8-2.4); Potassium 3.8 mmol/L (3.5-5.1)
[2019-05-06] MEDS: METOPROLOL SUCC 25MG EXT REL TAB PO SCH (08:56)
[2019-05-06] MEDS: LOSARTAN POTASSIUM 50 MG TAB PO SCH (08:57)
[2019-05-06] MEDS: CHOLECALCIFEROL 1,000 UNITS TAB PO SCH (08:58)
[2019-05-06] MEDS: FERROUS SULFATE 325 MG TAB PO SCH (08:58)
[2019-05-06] MEDS: PANTOprazole 40 MG TAB PO SCH (08:58)
[2019-05-06] MEDS: ASPIRIN 81 MG ECTAB PO SCH (08:58)
[2019-05-06] MEDS: GABAPENTIN 100 MG CAP PO SCH ×3 (08:58→20:15)
[2019-05-06] MEDS: hydroCHLOROthiazide 25 MG TAB PO SCH (08:59)
[2019-05-06] MEDS: ACETAMINOPHEN 325 MG TAB PO PRN ×2 (09:56→15:22)
--- NOTE | 2019-05-06 11:44 | Hospitalist Progress Note ---
Date of Service May 06, 2019 Assessment & Plan (1) Ambulatory dysfunction: Has been having problem with ambulation for a while He does not have any significant arthritis causing any acute pain Generalized weakness She will need physical therapy and Occupational Therapy and likely to be placed for rehab Has been accepted to [facility] To be discharged this afternoon (2) UTI (urinary tract infection): UA suggestive of infection Started on ceftriaxone Await culture and sensitivity Start Keflex and continue for a total of 10 days (3) Hypothyroidism: Continue replacement (4) Diastolic dysfunction: No fluid overload (5) Paroxysmal atrial fibrillation: Heart rate is controlled Continue beta-ambrose Denies any symptoms Has been on Coumadin and INR is therapeutic CODE STATUS Full Will be transferred to [facility] this afternoon Subjective 05/05 The patient was seen and examined in medical floor She complains to have some burning with urination Denies any fever and/or chills Her main symptoms remains ambulatory dysfunction 05/06 Patient was seen and examined in medical floor in presence of the family members She complains to have pain involving multiple joints Denies any dysuria and/or abdominal pain No fever and chills, no shortness of breath and/or palpitation Review of Systems Review of Systems: All systems reviewed and are unremarkable except as noted below Constitutional: + weakness and + problem reported (Problem with ambulation) Musculoskeletal: No acute arthritis in any of the joints. Has osteoarthritic changes involving many of the joints Neurologic: + unsteadiness Physical Exam Physical Exam: No apparent distress at rest Constitutional: no acute distress and not ill appearing Eyes: PERRL, conjunctivae normal, anicteric sclerae ENMT: external ear and nose normal, oropharynx normal Neck: trachea midline, no thyromegaly Respiratory: normal respiratory effort; no respiratory distress Ausculta tion: + diminished lung sounds (Minimal crackles at the bases) Cardiovascular: Rate/Rhythm: regular rate and regular rhythm Extremities: + edema (Trace edema bilaterally) Gastrointestinal (Abdomen): Inspection/Auscultation: normal bowel sounds Percussion/Palpation: abdomen soft Musculoskeletal: Has severe osteoarthritic changes involving the hands and feet but no acute arthritis in any of the joints on examination Neurologic: moves all extremities; no focal motor deficits Generally weak Lymphatic: no cervical or axillary lymphadenopathy Results & Data Vital Signs (Past 12 Hours) Vital Signs Temp Pulse Resp BP Pulse Ox 05/06/19 07:58 36.4 C L 56 L 16 150/74 H 95 Laboratory Results Short CBC 05/06/19 Range/Units 06:38 WBC 4.28 L (4.8-10.8) K/uL Hgb 13.7 (12.0-16.0) g/dL Hct 39.0 (37-47) % Plt Count 223 (130-400) K/uL BMP 05/06/19 06:38 Sodium 128 L Potassium 3.8 Chloride 94 L Carbon Dioxide 29 BUN 9 Creatinine 0.68 Glucose 82 Calcium 9.1 Medications Administered Current Inpatient Medications Acetaminophen (Tylenol) 650 mg PO Q4H PRN PRN Reason: pain/fever Stop: 06/04/19 03:35 Last Admin: 05/06/19 09:56 Dose: 650 mg Documented by: Aspirin (Ecotrin Ectab) 81 mg PO DAILY [facility] Stop: 06/04/19 08:59 Last Admin: 05/06/19 08:58 Dose: 81 mg Documented by: Ferrous Sulfate (Feosol) 325 mg PO DAILY [facility] Stop: 06/04/19 08:59 Last Admin: 05/06/19 08:58 Dose: 325 mg Documented by: Gabapentin (Neurontin) 100 mg PO TID [facility] Stop: 06/04/19 08:59 Last Admin: 05/06/19 08:58 Dose: 100 mg Documented by: Hydrochlorothiazide (Hctz) 12.5 mg PO DAILY [facility] Stop: 06/04/19 08:59 Last Admin: 05/06/19 08:59 Dose: 12.5 mg Documented by: Ceftriaxone Sodium 1,000 mg/ (Dextrose) 50 mls @ 100 mls/hr IV Q24H [facility]; Protocol Stop: 05/14/19 21:59 Last Infusion: 05/05/19 21:56 Dose: Infused Documented by: Levothyroxine Sodium (Synthroid) 100 mcg PO DAILYBB [facility] Stop: 06/04/19 06:29 Last Admin: 05/06/19 05:55 Dose: Not Given Documented by: Losartan Potassium (Cozaar) 50 mg PO DAILY [facility] Stop: 06/04/19 08:59 Last Admin: 05/06/19 08:57 Dose: 50 mg Documented by: Metoprolol Succinate (Toprol Xl) 25 mg PO DAILY [facility] Stop: 06/04/19 08:59 Last Admin: 05/06/19 08:56 Dose: Not Given Documented by: Nitroglycerin (Nitrostat) 0.4 mg SL UD PRN PRN Reason: Chest Pain Stop: 06/04/19 03:35 Ondansetron HCl (Zofran) 4 mg IV Q6H PRN PRN Reason: Nausea Stop: 06/04/19 03:35 Pantoprazole Sodium (Protonix) 40 mg PO QAM [facility] Stop: 06/04/19 08:59 Last Admin: 05/06/19 08:58 Dose: 40 mg Documented by: Polyethylene Glycol (Miralax Powder Packet) 17 gm PO DAILY PRN PRN Reason: Constipation Stop: 06/04/19 03:35 Vitamin D (Vitamin D3) 2,000 units PO DAILY [facility] Stop: 06/04/19 08:59 Last Admin: 05/06/19 08:58 Dose: 2,000 units Documented by: Warfarin Sodium (Coumadin) 4 mg PO WeSa@1600 [facility] Stop: 06/05/19 15:59 Warfarin Sodium (Coumadin) 2 mg PO SuMoTuThFr@1600 [facility] Stop: 06/04/19 15:59 Last Admin: 05/05/19 15:16 Dose: 2 mg Documented by: (1) UTI (urinary tract infection) Hematuria presence: with hematuria Urinary tract infection type: acute cystitis Qualified Code(s): N30.01 - Acute cystitis with hematuria
[2019-05-06] MEDS: cephALEXin 250 MG CAP PO SCH ×2 (13:57→20:15)
[2019-05-06] MEDS ORDERED: WARFARIN SOD 4 MG TAB PO SCH (16:00)
[2019-05-06] MEDS ORDERED: CALCIUM CARBONATE 500 MG CHEWABLE TAB PO PRN (19:44)
[2019-05-07] MEDS: LEVOTHYROXINE SODIUM 100 MCG TABLET PO SCH (06:42)
[2019-05-07 07:38] LABS: INR 3.2 (0.9-1.1); Prothrombin Time 29.8 Seconds (9.0-12.0)
[2019-05-07] MEDS: FERROUS SULFATE 325 MG TAB PO SCH (09:35)
[2019-05-07] MEDS: ASPIRIN 81 MG ECTAB PO SCH (09:35)
[2019-05-07] MEDS: hydroCHLOROthiazide 25 MG TAB PO SCH (09:35)
[2019-05-07] MEDS: GABAPENTIN 100 MG CAP PO SCH ×2 (09:36→13:43)
[2019-05-07] MEDS: METOPROLOL SUCC 25MG EXT REL TAB PO SCH (09:36)
[2019-05-07] MEDS: cephALEXin 250 MG CAP PO SCH ×2 (09:36→13:43)
[2019-05-07] MEDS: PANTOprazole 40 MG TAB PO SCH (09:36)
[2019-05-07] MEDS: CHOLECALCIFEROL 1,000 UNITS TAB PO SCH (09:37)
[2019-05-07] MEDS: LOSARTAN POTASSIUM 50 MG TAB PO SCH (10:22)
[2019-05-07 11:53] LABS: BUN Creatinine Ratio 10.8 (10-20); Calcium 8.9 mg/dl (8.5-10.1); Creatinine Clr Calc Pharmacy 39.6 ml/min; Est GFR (African American) 68.5; Est GFR (Non-African American) 59.1; Potassium 4.2 mmol/L (3.5-5.1)
--- NOTE | 2019-05-07 12:12 | Hospitalist Progress Note ---
Date of Service May 07, 2019 Assessment & Plan (1) Ambulatory dysfunction: Has been having problem with ambulation for a while He does not have any significant arthritis causing any acute pain Generalized weakness She will need physical therapy and Occupational Therapy and likely to be placed for rehab Has been accepted to [facility] She will be transferred to [facility] this afternoon (2) UTI (urinary tract infection): UA suggestive of infection Started on ceftriaxone Await culture and sensitivity Start Keflex and continue for a total of 10 days Urine culture grew E. coli that is sensitive to cephalosporins We will continue total of 10 days course of antibiotic as an outpatient (3) Hypothyroidism: Continue replacement (4) Diastolic dysfunction: No fluid overload (5) Paroxysmal atrial fibrillation: Heart rate is controlled Continue beta-ambrose Denies any symptoms Has been on Coumadin and INR is therapeutic CODE STATUS Full Will be transferred to [facility] this afternoon 05/07 Subjective 05/05 The patient was seen and examined in medical floor She complains to have some burning with urination Denies any fever and/or chills Her main symptoms remains ambulatory dysfunction 05/06 Patient was seen and examined in medical floor in presence of the family members She complains to have pain involving multiple joints Denies any dysuria and/or abdominal pain No fever and chills, no shortness of breath and/or palpitation 05/07 The patient was seen and examined in medical floor She has been feeling a lot better since admission Minimal arthritic pain involving the joints but no acute arthritis in any joints Urinary symptoms are gone Review of Systems Review of Systems: All systems reviewed and are unremarkable except as noted below Constitutional: + weakness and + problem reported (Problem with ambulation) Musculoskeletal: No acute arthritis in any of the joints. Has osteoarthritic changes involving many of the joints Neurologic: + unsteadiness Physical Exam Physical Exam: Sitting on a chair without any symptoms Constitutional: no acute distress and not ill appearing Eyes: PERRL, conjunctivae normal, anicteric sclerae ENMT: external ear and nose normal, oropharynx normal Neck: trachea midline, no thyromegaly Respiratory: normal respiratory effort; no respiratory distress Auscultation: + diminished lung sounds (Minimal crackles at the bases) Cardiovascular: Rate/Rhythm: regular rate and regular rhythm Extremities: + edema (Trace edema bilaterally) Gastrointestinal (Abdomen): Inspection/Auscultation: normal bowel sounds Percussion/Palpation: abdomen soft Musculoskeletal: Has severe osteoarthritic changes involving the hands and feet. No acute arthritis in any of the joints Neurologic: moves all extremities; no focal motor deficits Alert, awake and oriented x3. Generally weak Lymphatic: no cervical or axillary lymphadenopathy Results & Data Vital Signs (Past 12 Hours) Vital Signs Temp Pulse Pulse Resp BP BP Pulse Ox 05/07/19 09:31 89 135/78 05/07/19 07:29 36.7 C 69 16 194/79 H 203/91 H 95 Laboratory Results [facility] 05/07/19 11:15 Sodium 128 L Potassium 4.2 Chloride 94 L Carbon Dioxide 29 BUN 9 Creatinine 0.87 Glucose 99 Calcium 8.9 Medications Administered Current Inpatient Medications Acetaminophen (Tylenol) 650 mg PO Q4H PRN PRN Reason: pain/fever Stop: 06/04/19 03:35 Last Admin: 05/06/19 15:22 Dose: 650 mg Documented by: Aspirin (Ecotrin Ectab) 81 mg PO DAILY [facility] Stop: 06/04/19 08:59 Last Admin: 05/07/19 09:35 Dose: 81 mg Documented by: Calcium Carbonate (Tums) 500 mg PO Q6H PRN PRN Reason: Indigestion Stop: 06/05/19 19:43 Last Admin: 05/06/19 20:15 Dose: 500 mg Documented by: Cephalexin HCl (Keflex) 250 mg PO TID [facility]; Protocol Stop: 05/11/19 13:59 Last Admin: 05/07/19 09:36 Dose: 250 mg Documented by: Ferrous Sulfate (Feosol) 325 mg PO DAILY [facility] Stop: 06/04/19 08:59 Last Admin: 05/07/19 09:35 Dose: 325 mg Documented by: Gabapentin (Neurontin) 100 mg PO TID [facility] Stop: 06/04/19 08:59 Last Admin: 05/07/19 09:36 Dose: 100 mg Documented by: Hydrochlorothiazide (Hctz) 12.5 mg PO DAILY [facility] Stop: 06/04/19 08:59 Last Admin: 05/07/19 09:35 Dose: 12.5 mg Documented by: [facility]othyroxine [facility]) [facility] Stop: 06/04/19 06:29 Last Admin: 05/07/19 06:42 Dose: Not Given Documented by: Losartan Potassium (Cozaar) 50 mg PO DAILY [facility] Stop: 06/04/19 08:59 Last Admin: 05/07/19 10:22 Dose: 50 mg Documented by: Metoprolol Succinate (Toprol Xl) 25 mg PO DAILY [facility] Stop: 06/04/19 08:59 Last Admin: 05/07/19 09:36 Dose: 25 mg Documented by: Nitroglycerin (Nitrostat) 0.4 mg SL UD PRN PRN Reason: Chest Pain Stop: 06/04/19 03:35 Ondansetron HCl (Zofran) 4 mg IV Q6H PRN PRN Reason: Nausea Stop: 06/04/19 03:35 Pantoprazole Sodium (Protonix) 40 mg PO QAM [facility] Stop: 06/04/19 08:59 Last Admin: 05/07/19 09:36 Dose: 40 mg Documented by: Polyethylene Glycol (Miralax Powder Packet) 17 gm PO DAILY PRN PRN Reason: Constipation Stop: 06/04/19 03:35 Vitamin D (Vitamin D3) 2,000 units PO DAILY [facility] Stop: 06/04/19 08:59 Last Admin: 05/07/19 09:37 Dose: 2,000 units Documented by: Warfarin Sodium (Coumadin) 4 mg PO WeSa@1600 [facility] Stop: 06/05/19 15:59 Last Admin: 05/06/19 15:22 Dose: 4 mg Documented by: Warfarin Sodium (Coumadin) 2 mg PO SuMoTuThFr@1600 [facility] Stop: 06/04/19 15:59 Last Admin: 05/05/19 15:16 Dose: 2 mg Documented by: (1) UTI (urinary tract infection) Hematuria presence: with hematuria Urinary tract infection type: acute cystitis Qualified Code(s): N30.01 - Acute cystitis with hematuria
--- NOTE | 2019-05-07 17:07 | Discharge Summary ---
Date of Service May 07, 2019 Admission HPI Per Admitting Provider DICTATED BY: Diego Weeks MD DATE OF ADMISSION: 05/05/2019 CHIEF COMPLAINT: Frequent falls. HISTORY OF PRESENT ILLNESS: This is an 89-year-old female with past medical history significant for falls and recurrent UTI, GERD, diastolic CHF, hypertension, paroxysmal atrial fibrillation on Coumadin, peripheral vascular disease, hypothyroidism, female stress incontinence, osteoporosis, venous stasis dermatitis in the right lower extremity, history of ulcer of the lower limb, iron deficiency anemia, presents with falls. The patient lives with her daughter and her . The patient was here in March with the weakness, ambulatory dysfunction, found to have a UTI, treated with Rocephin at that time with pansensitive E. coli and was discharged on 03/31/2019 to home with home health. The patient has 3 weeks of PT at home and today was the last day of home health nurse visit. She has poor vision and she walks with a walker. She only walks to the bathroom with some assistance and also to the porch, does not walk much at home. She fell today and she also fell a few times recently. That is the reason, the family brought her to the hospital and again she was found to have UTI. Currently, resting comfortable and hemodynamically stable. Complains of headache. Denies dizziness. Eyes, poor vision and hard of hearing. No sore throat, no difficulty swallowing. She eats regular food. Has occasional dry cough. No fever, no chills, no chest pain, no shortness of breath, no nausea, no abdominal pain. She has some burning micturition and increased frequency, but denies any hematuria. Normal bowel movements. No blood in the stools, no black stools. Has some slightly swelling of the right lower extremity. No erythema seen. Admission Exam Per Admitting Provider GENERAL: The patient is old and frail, not in acute distress. VITAL SIGNS: Temperature 36.6, pulse 73, respiratory rate 19, blood pressure 164/94, oxygen 96% on room air. HEENT: No pallor, no icterus. Pupils sluggish to react to light. NECK: No JVD, no neck masses, no carotid bruits. CARDIOVASCULAR: S1, S2 heard, regular rate and rhythm, no murmur, no gallop. RESPIRATORY SYSTEM: Normal AP diameter. No accessory muscle use. No wheezing, no crackles. ABDOMEN: Soft, bowel sounds present, nontender. No distention. CENTRAL NERVOUS SYSTEM: Cranial nerves II-XII grossly nonfocal. EXTREMITIES: Right lower extremity, slightly swollen. No erythema seen. Principal Diagnosis Ambulatory dysfunction with frequent falls, UTI, paroxysmal atrial fibrillation on Coumadin, diastolic dysfunction-no CHF, hypothyroidism, osteoarthritis Discharge Exam Constitutional no acute distress and not ill appearing Eyes PERRL, conjunctivae normal, anicteric sclerae ENMT external ear and nose normal, oropharynx normal Neck trachea midline, no thyromegaly Respiratory normal respiratory effort; no respiratory distress Auscultation: + diminished lung sounds (Minimal crackles at the bases) Cardiovascular Rate/Rhythm: regular rate and regular rhythm Extremities: + edema (Trace edema bilaterally) Gastrointestinal (Abdomen) Inspection/Auscultation: normal bowel sounds Percussion/Palpation: abdomen soft Neurologic moves all extremities; no focal motor deficits Lymphatic no cervical or axillary lymphadenopathy Discharge Data Allergies Allergy/AdvReac Type Severity Reaction Status Date / Time Cipro Allergy Unknown RASH,SEVERE Verified 03/14/18 21:16 HEADACHE ciprofloxacin Allergy Unknown RASH,SEVERE Verified 05/04/19 23:40 HEADACHE aspirin AdvReac Intermediate nose bleeds Verified 05/04/19 23:40 Sulfa (Sulfonamide AdvReac Unknown HEADACHE Verified 05/04/19 23:40 Antibiotics) WITH BACTRIM Consultations 05/05/19 02:23 ED Decision to Admit Stat 05/05/19 03:36 Consult Case Management - Discharge Planning Routine Hospital Course (1) Ambulatory dysfunction: Has been having problem with ambulation for a while He does not have any significant arthritis causing any acute pain Generalized weakness She will need physical therapy and Occupational Therapy and likely to be placed for rehab Has been accepted to [facility] She will be transferred to [facility] this afternoon (2) UTI (urinary tract infection): UA suggestive of infection Started on ceftriaxone Await culture and sensitivity Start Keflex and continue for a total of 10 days Urine culture grew E. coli that is sensitive to cephalosporins We will continue total of 10 days course of antibiotic as an outpatient (3) Hypothyroidism: Continue replacement (4) Diastolic dysfunction: No fluid overload (5) Paroxysmal atrial fibrillation: Heart rate is controlled Continue beta-ambrose Denies any symptoms Has been on Coumadin and INR is therapeutic CODE STATUS Full Will be transferred to [facility] this afternoon 8/29 Total Time Total Time Spent Total Time Spent (In Minutes): 35 minutes Total Time Includes: Examination of the Patient, Discharge Planning, Medication Reconciliation and Communication With Other Providers Discharge Plan Discharge Items Patient Disposition: Transfer Inpatient Rehab Fac Reason For Visit: FALLS Discharge Diagnosis: Ambulatory dysfunction with frequent falls, UTI, paroxysmal atrial fibrillation on Coumadin, diastolic dysfunction-no CHF, hypothyroidism, osteoarthritis Condition: Fair Discharge Goals: Decrease discomfort Activity: Resume your previous activity Non-emergency contact: Primary Care Provider Call non-emergency contact if: you have any medication questions and your symptoms worsen Follow-up/Referrals: Erasto Burks, [Primary Care Provider] - (Please make an appointment with your primary care physician within 7 days following discharge from the facility) Diet: Heart Healthy Fluids: 1500ml (6 cups) Diet Texture: Dental soft (bite-sized) Addtl Provider Instructions: Please take precaution to avoid fall Prescriptions: New cephalexin 250 mg Capsule 250 mg PO TID 7 Days Qty: 21 RF: 0 Continued losartan 50 mg Tablet 50 mg PO DAILY RF: 0 aspirin [Aspir-81] 81 mg Tablet,Delayed Release (Dr/Ec) 81 mg PO DAILY RF: 0 acetaminophen 500 mg Tablet 500 mg PO DIRECTED PRN (Reason: Pain) RF: 0 omeprazole 20 mg Capsule,Delayed Release(Dr/Ec) 20 mg PO QAM RF: 0 gabapentin 100 mg Capsule 100 mg PO TID RF: 0 metoprolol succinate 25 mg Tablet Extended Release 24 Hr 25 mg PO DAILY RF: 0 cholecalciferol (vitamin D3) [Vitamin D3] 2,000 unit Capsule 2,000 unit PO DAILY RF: 0 cyanocobalamin (vitamin B-12) 1,000 mcg/mL Kit 1,000 mcg IM MONTHLY RF: 0 warfarin [Jantoven] 4 mg tablet 4 mg PO 2XWK RF: 0 levothyroxine 100 mcg tablet 100 mcg PO QAM RF: 0 ferrous sulfate [iron] 325 mg (65 mg iron) Tablet 325 mg PO DAILY RF: 0 warfarin [Jantoven] 2 mg tablet 2 mg PO 5XWK RF: 0 nitroglycerin [Nitrostat] 0.4 mg Tablet, Sublingual 0.4 mg sublingual DIRECTED PRN (Reason: Chest Pain) RF: 0 hydrochlorothiazide 12.5 mg capsule 12.5 mg PO DAILY RF: 0 Stand-Alone Forms: [facility] Discharge Orders: Discharge Order (Routine); Ordered 05/07/19 Ordered By: Edward Monique Skilled Items Patient informed of condition?: Yes DNR: No Discharge Level of Care: Skilled Communicable Disease: No Discharge Prognosis: Stable Admission Data Admit Date/Time: 05/05/19 03:05 Attending Provider: Edward Monique Admit Provider: Diego Weeks Primary Care Provider: Erasto Burks Other Providers: Diego Weeks Service: Medical Other Interventions: Discharge Summary Assessment (RN) Last Done: 05/07/19 14:48 DC Date/Time DO NOT enter until pt leaves facility: 05/07/19 14:49
== END 2019-05-07 14:49 | DRG 690 ==
LOC: ED 22:40 → 3W 05-05 03:05

== ENCOUNTER 2019-07-18 04:05 | Inpatient (IN) ==
[2019-07-18] MEDS ORDERED: ALBUT/IPRATROP 3MG/0.5MG NEB 3 ML VIAL ONE (04:11)
[2019-07-18] MEDS ORDERED: ONDANSETRON INJ 2 MG/ML 2 ML VIAL ONE (04:11)
[2019-07-18] MEDS ORDERED: ALBUTEROL 0.083% NEBU SOLN 3 ML VIAL ONE (04:11)
[2019-07-18] MEDS ORDERED: FUROSEMIDE 40 MG/4 ML VIAL IV STA (04:27)
[2019-07-18] MEDS ORDERED: LABETALOL HCL IV 5 MG/ML 20ML IV STA (04:29)
[2019-07-18 04:43] LABS: Appearance Urine Turbid (Clear); Bacteria Urine Automated 4+ (Negative); Blood Urine 3+ (Negative); Color Urine Dark Yellow; Glucose Urine UA Negative (Negative); Ketones Urine Trace (Negative); Leukocyte Esterase Urine 2+ (Negative); Nitrite Urine Positive (Negative); Protein Urine 3+ (Negative); Specific Gravity Urine 1.025 (1.000-1.030); Urobilinogen Urine Negative (Negative); WBC Urine Automated >30 /hpf (0-5); pH Urine 5.5 (4.5-7.5)
[2019-07-18 04:53] LABS: Bilirubin Urine Negative (Negative); Ictotest Urine Negative (Negative)
[2019-07-18] MEDS ORDERED: PIPERACILL/TAZOBAC CONSULT ACTIVE PRN (05:10)
[2019-07-18] MEDS ORDERED: PIPERACILLIN/TAZOBACTAM 4.5 GM/120 ML BAG IV ONE (05:10)
[2019-07-18 05:18] LABS: Basophils # (auto) 0.01 K/uL (0-0.2); Basophils % (auto) 0.1 %; Eosinophils # (auto) 0.01 K/uL (0-0.5); Eosinophils % (auto) 0.1 %; Hemoglobin 14.4 g/dL (12.0-16.0); Immature Granulocytes # (auto) 0.03 K/uL (0.00-0.02); Immature Granulocytes % (auto) 0.3 %; Lymphocytes # (auto) 0.39 K/uL (1.2-3.4); Lymphocytes % (auto) 3.3 %; Mean Corpuscular Hemoglobin 30.3 pg (25-34); Mean Corpuscular Hgb Conc 34.3 g/dL (32-36); Mean Corpuscular Volume 88.2 fL (80-100); Mean Platelet Volume 10.9 fL (7.4-10.4); Monocytes # (auto) 0.75 K/uL (0.11-0.59); Monocytes % (auto) 6.4 %; Neutrophils % (auto) 89.8 %; Platelet Count 237 K/uL (130-400); RDW Standard Deviation 45.4 fL (36.4-46.3); Red Blood Count 4.76 M/uL (4.2-5.4); White Blood Count 11.69 K/uL (4.8-10.8)
[2019-07-18 05:21] LABS: RBC Urine Automated >30 /hpf (0-4)
[2019-07-18 05:26] LABS: INR 3.3 (0.9-1.1); Partial Thromboplastin Ratio 1.4; Partial Thromboplastin Time 37.8 Seconds (21.0-31.0)
[2019-07-18 05:36] LABS: Albumin Level 3.1 gm/dl (3.4-5.0); BUN Creatinine Ratio 11.9 (10-20); Creatinine Clr Calc Pharmacy 47.4 ml/min; Est GFR (African American) 72.5; Est GFR (Non-African American) 62.5; Magnesium 1.7 mg/dl (1.8-2.4); Potassium 3.5 mmol/L (3.5-5.1)
[2019-07-18 05:39] LABS: Influenza A virus by PCR Neg for Influ A (Neg); Influenza B virus by PCR Neg for Influ B (Neg)
[2019-07-18 05:41] LABS: Albumin Globulin Ratio 0.7 (0.9-2); Bilirubin,Total 0.6 mg/dl (0.2-1); Globulin 4.4 gm/dl (2.5-4.0); Total Protein 7.5 gm/dl (6.4-8.2); Troponin I 0.016 ng/ml (0-0.045)
[2019-07-18] MEDS ORDERED: VANCOMYCIN CONSULT ACTIVE PRN (05:57)
[2019-07-18] MEDS ORDERED: VANCOMYCIN HCL 1,750 MG in SODIUM CHLORIDE 0.9% 500 ML IV ONE (05:57)
[2019-07-18] MEDS ORDERED: FAMOTIDINE 20MG/5ML IV PUSH IV STA (05:57)
[2019-07-18] MEDS ORDERED: ACETAMINOPHEN 1,000 MG/100 ML VIAL IV ONE (06:21)
[2019-07-18] MEDS ORDERED: MAGNESIUM SULFATE / D5W 1 GM/100 ML BAG IV ONE ×2 (06:22→07:18)
--- NOTE | 2019-07-18 07:01 | XRay Report ---
XR chest 1V portable CLINICAL HISTORY: Dyspnea COMPARISON STUDY: 07/07/2019 FINDINGS: The heart is enlarged. There is a retrocardiac opacity consistent with a hiatal hernia. The re is persistent but improving pulmonary edema. There are bilateral pleural effusions right greater t adamson left. There is no lobar consolidation[ IMPRESSION: 1. Persistent but improving pulmonary edema 2. Bilateral pleural effusions 3. Suspected large hiatal hernia Electronically signed by: Efrain Velazco M.D. 07/18/2019 7:00 AM
[2019-07-18 07:03] LABS: Base Excess ABG 1.7 mEq/L (-9-1.8); HCO3 ABG 26 mmol/L (19-24); PCO2 ABG 37 mmHg (35-46); PO2 ABG 84 mm/Hg (80-95); pH ABG 7.45 (7.35-7.45)
[2019-07-18 07:04] LABS: Allen Test Pos (Pos)
--- NOTE | 2019-07-18 07:10 | History & Physical Report ---
Date of Service July 18, 2019 Assessment & Plan (1) Encephalopathy: Possible underlying dementia as per patient's family Multifactorial: Acute hypoxemic respiratory failure (possible aspiration pneumonitis plus pulmonary congestion, history diastolic dysfunction) Complicated UTI, recurrent illness, history stress incontinence as per records rule out obstructive uropathy Sepsis secondary to aspiration pneumonitis, and complicated UTI Hypertensive urgency Home gabapentin possibly contributory Rule out intracranial bleed given headache symptoms as per patient's daughter account and coagulopathy Rapid AF secondary to sepsis Improved heart rate after initial intervention at the ER INR slightly supratherapeutic history CVA as per records Hyperglycemia, probable prediabetes, hemoglobin A1c 6.1, 08/2018 PCU for rapid A. fib Supplemental O2 Baseline ABG Cultures, IV Zosyn Aspiration precautions, swallow eval Nebs for bronchospasm Continue home beta-ambrose, may need titration Continue home Lasix CT head RE headache, encephalopathy CT abdomen pelvis RE recurrent UTIs rule out anatomic structural pathology Appropriate to hold home gabapentin for now given encephalopathy. DVT prophylaxis. Coumadin INR goal between 2 and 3 if no bleed on CT head DNR as per daughter, Ms. Escoto Cynthialuis.(contact numbers [phone]) Family to consider comfort measures if no improvement in patient clinical status after 24 to 40 hours of medical management as per daughter. History of Present Illness Chief Complaint: Respiratory difficulty as per records. Primary Care Provider: [facility] History obtained from family, and records. Limited history from patient secondary to decreased responsiveness. Medical history significant for diastolic dysfunction (EF 60 to 64%, TTE 2018), PAF on Coumadin, history CVA, hypertension, history PVD as per records, recurrent UTIs, history of stress incontinence as per records, possible dementia as per family. Recent confinement April 2019 for ambulatory dysfunction, E. coli UTI. Few days ago, patient's urine noted to be malodorous at personal residential. UA was noted to be abnormal. Antibiotic prescription was supposed to be started this weekend as per daughter. Last night, patient noted to be weak, a little more confused than usual as per patient's daughter. Patient complaining of headache, cough/congestion symptoms. Patient noted to cough with meals and water intake if not careful. Patient later noted to have gurgling respiratory distress. O2 sats 80s at [facility]. IV Solu-Medrol administered by EMS. Patient received Zosyn at the ER for sepsis. Labetalol given for uncontrolled blood pressure at the ER and rapid A. fib. Lasix given for pulmonary congestion. 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, personal-residential resident Allergies Allergy/AdvReac Type Severity Reaction Status Date / Time Cipro Allergy Unknown RASH,SEVERE Verified 03/14/18 21:16 HEADACHE ciprofloxacin Allergy Unknown RASH,SEVERE Verified 07/18/19 04:38 HEADACHE aspirin AdvReac Intermediate nose bleeds Verified 07/18/19 04:38 Sulfa (Sulfonamide AdvReac Unknown HEADACHE Verified 07/18/19 04:38 Antibiotics) WITH BACTRIM Home Medications Home Medications Medication Instructions Recorded Confirmed Type cholecalciferol (vitamin D3) 2,000 unit PO DAILY 08/18/18 07/18/19 History [Vitamin D3] cyanocobalamin (vitamin B-12) 1,000 mcg IM MONTHLY 08/18/18 07/18/19 History gabapentin 100 mg PO TID 08/18/18 07/18/19 History losartan 100 mg PO DAILY 08/18/18 07/18/19 History metoprolol succinate 25 mg PO DAILY 08/18/18 07/18/19 History omeprazole 20 mg PO QAM 08/18/18 07/18/19 History ferrous sulfate [iron] 325 mg PO DAILY 03/27/19 07/18/19 History levothyroxine 100 mcg PO QAM 03/27/19 07/18/19 History nitroglycerin [Nitrostat] 0.4 mg SUBLINGUAL DIRECTED PRN 03/27/19 07/18/19 History warfarin [Jantoven] 2 mg PO SUTUWETHFRSA 03/27/19 07/18/19 History citalopram 10 mg PO DAILY 06/30/19 07/18/19 History furosemide 20 mg PO QAM 06/30/19 07/18/19 History nystatin 1 applic TOPICAL BID 06/30/19 07/18/19 History sodium chloride 1,000 mg PO BID 06/30/19 07/18/19 History warfarin 1 mg PO MO 06/30/19 07/18/19 History sennosides-docusate sodium 1 tab-cap PO BID 07/07/19 07/18/19 History [Senna-S] acetaminophen 650 mg PO Q4H PRN 07/18/19 07/18/19 History artificial tears(hypromellose) 1 drp OPHTHALMIC (EYE) BID 07/18/19 07/18/19 History nitrofurantoin monohyd/m-cryst 100 mg PO BID 07/18/19 07/18/19 History Past Med/Surg History Medical History A-fib Hypothyroidism (Chronic) Female stress incontinence (Chronic) Iron deficiency anemia (Chronic) Chronic venous stasis (Chronic) Diastolic dysfunction (Chronic) GERD (gastroesophageal reflux disease) (Chronic) Paroxysmal atrial fibrillation (Chronic) HTN (hypertension) (Chronic) Surgical History History of cystoscopy (Resolved) Family History Other Diabetes Hypertension Lung cancer Social History Preferred Language: [place] Communication Ability: Impaired Communication Ability Comment: Unresponsive at this time. Utility Hand Required: No Beliefs That Will Affect Care: None marital status: Current Living Situation: Personal Care Facility Current Living Situation Comment: [facility] current occupational status: retired Other Information That Helps Us Care for You: No Feels Safe at Home: Yes Safety Concerns: Feels Safe At This Time Smoking Status: Never smoker Hx Alcohol Use: No Hx Substance Use: No Review of Systems Review of Systems: Could not be reliably obtained Physical Exam Physical Exam: GENERAL: Obtunded, hard of hearing, no respiratory distress SKIN: Normal color, warm HEENT: [place] palpebral conjunctivae, no ptosis, dry buccal mucosa, O2 mask in place NECK : supple, no tenderness CHEST : Bilateral rhonchi, expiratory wheezes , no tenderness HEART : Tachycardic, irregular, no obvious murmurs ABDOMEN: Some distention, nontender EXTREMITIES : Chronic bilateral LE venous stasis, no LE tenderness NEUROLOGIC : Obtunded, eyes closed, mid dilated pupils, no facial asymmetry, no other gross focality Results & Data Vital Signs (Past 12 Hours) Vital Signs Temp Pulse Pulse Resp BP BP Pulse Ox 07/18/19 05:32 92 07/18/19 05:30 102 H 22 129/76 92 07/18/19 05:01 109 H 25 H 91 07/18/19 05:00 113 H 25 H 142/93 H 91 07/18/19 04:22 38.4 C H 138 H 18 181/124 H 93 Laboratory Results Laboratory Results WBC 11.69 K/uL (4.8-10.8) H 07/18/19 05:06 RBC 4.76 M/uL (4.2-5.4) 07/18/19 05:06 Hgb 14.4 g/dL (12.0-16.0) 07/18/19 05:06 Hct 42.0 % (37-47) 07/18/19 05:06 MCV 88.2 fL (80-100) 07/18/19 05:06 MCH 30.3 pg (25-34) 07/18/19 05:06 MCHC 34.3 g/dL (32-36) 07/18/19 05:06 RDW Std Deviation 45.4 fL (36.4-46.3) 07/18/19 05:06 RDW Coeff of Evelio 14.0 % (11.5-14.5) 07/18/19 05:06 Plt Count 237 K/uL (130-400) 07/18/19 05:06 MPV 10.9 fL (7.4-10.4) H 07/18/19 05:06 Immature Gran % (Auto) 0.3 % 07/18/19 05:06 Neut % (Auto) 89.8 % 07/18/19 05:06 Lymph % (Auto) 3.3 % 07/18/19 05:06 [place] % (Auto) 6.4 % 07/18/19 05:06 Eos % (Auto) 0.1 % 07/18/19 05:06 Baso % (Auto) 0.1 % 07/18/19 05:06 Immature Gran # (Auto) 0.03 K/uL (0.00-0.02) H 07/18/19 05:06 Neut # (Auto) 10.50 K/uL (1.4-6.5) H 07/18/19 05:06 Lymph # (Auto) 0.39 K/uL (1.2-3.4) L 07/18/19 05:06 [place] # (Auto) 0.75 K/uL (0.11-0.59) H 07/18/19 05:06 Eos # (Auto) 0.01 K/uL (0-0.5) 07/18/19 05:06 Baso # (Auto) 0.01 K/uL (0-0.2) 07/18/19 05:06 PT 31.0 Seconds (9.0-12.0) H 07/18/19 05:06 INR 3.3 (0.9-1.1) H 07/18/19 05:06 APTT 37.8 Seconds (21.0-31.0) H 07/18/19 05:06 PTT Ratio 1.4 07/18/19 05:06 ABG pH 7.45 (7.35-7.45) 07/18/19 06:46 ABG pCO2 37 mmHg (35-46) 07/18/19 06:46 ABG pO2 84 mm/Hg (80-95) 07/18/19 06:46 ABG HCO3 26 mmol/L (19-24) H 07/18/19 06:46 ABG O2 Saturation 97.0 % (90-95) H 07/18/19 06:46 ABG Base Excess 1.7 mEq/L (-9-1.8) 07/18/19 06:46 Francis Test Pos (Pos) 07/18/19 06:46 Barometric Pressure 738.0 mm/Hg 07/18/19 06:46 Oxygen Given 4 L 07/18/19 06:46 Sodium 139 mmol/L (136-145) 07/18/19 05:06 Potassium 3.5 mmol/L (3.5-5.1) 07/18/19 05:06 Chloride 105 mmol/L (98-107) 07/18/19 05:06 Carbon Dioxide 27 mmol/L (21-32) 07/18/19 05:06 Anion Gap 7.0 (3-11) 07/18/19 05:06 BUN 10 mg/dl (7-18) 07/18/19 05:06 Creatinine 0.83 mg/dl (0.6-1.2) 07/18/19 05:06 Est Cr Clr Drug Dosing 47.4 ml/min 07/18/19 05:06 Est GFR ( Amer) 72.5 07/18/19 05:06 Est GFR (Non-Af Amer) 62.5 07/18/19 05:06 BUN/Creatinine Ratio 11.9 (10-20) 07/18/19 05:06 Glucose 164 mg/dl (70-99) H 07/18/19 05:06 Lactate 1.5 mmol/L (0.4-2.0) 07/18/19 05:06 Calcium 9.0 mg/dl (8.5-10.1) 07/18/19 05:06 Magnesium 1.7 mg/dl (1.8-2.4) L 07/18/19 05:06 Total Bilirubin 0.6 mg/dl (0.2-1) 07/18/19 05:06 AST 7 U/L (15-37) L 07/18/19 05:06 ALT 14 U/L (12-78) 07/18/19 05:06 Alkaline Phosphatase 61 U/L (45-117) 07/18/19 05:06 Troponin I 0.016 ng/ml (0-0.045) 07/18/19 05:06 Total Protein 7.5 gm/dl (6.4-8.2) 07/18/19 05:06 Albumin 3.1 gm/dl (3.4-5.0) L 07/18/19 05:06 Globulin 4.4 gm/dl (2.5-4.0) H 07/18/19 05:06 Albumin/Globulin Ratio 0.7 (0.9-2) L 07/18/19 05:06 Urine Color Dark Yellow 07/18/19 04:15 Urine Appearance Turbid (Clear) A 07/18/19 04:15 Urine pH 5.5 (4.5-7.5) 07/18/19 04:15 Ur Specific [place] 1.025 (1.000-1.030) 07/18/19 04:15 Urine Protein 3+ (Negative) H 07/18/19 04:15 Urine Glucose (UA) Negative (Negative) 07/18/19 04:15 Urine Ketones Trace (Negative) H 07/18/19 04:15 Urine Blood 3+ (Negative) H 07/18/19 04:15 Urine Nitrite Positive (Negative) A 07/18/19 04:15 Urine Bilirubin Negative (Negative) 07/18/19 04:15 Urine Urobilinogen Negative (Negative) 07/18/19 04:15 Ur Leukocyte Esterase 2+ (Negative) H 07/18/19 04:15 Urine WBC (Auto) >30 /hpf (0-5) H 07/18/19 04:15 Urine RBC (Auto) >30 /hpf (0-4) H 07/18/19 04:15 U Hyaline Cast (Auto) 1-5 /lpf (0-5) 07/18/19 04:15 U Epithel Cells (Auto) 10-20 /lpf (0-5) H 07/18/19 04:15 Urine Bacteria (Auto) 4+ (Negative) H 07/18/19 04:15 Urine Yeast Present (None Prsent) A 07/18/19 04:15 Influenza Type A (PCR) Neg for Influ A (Neg) 07/18/19 04:49 Influenza Type B (PCR) Neg for Influ B (Neg) 07/18/19 04:49 Diagnostic Findings Chest x-ray as per my interpretation : congestion, cardiomegaly EKG as per my interpretation : Rate 130, A. fib, LAD, LAFB, septal/inferior infarct, diffuse T wave flattening, low voltage
[2019-07-18] MEDS ORDERED: XOPENEX/ATROVENT 1.25mg/0.5MG NEB COMBO NEB STA (07:19)
[2019-07-18] MEDS ORDERED: LEVALBUTEROL 1.25MG/0.5ML NEB INH ONE (07:45)
[2019-07-18] MEDS ORDERED: IPRATROPIUM BROMIDE NEB SOLN 0.02% 2.5 ML VIAL INH ONE (07:45)
[2019-07-18 08:12] LABS: Estimated Average Glucose 123 mg/dl; Hemoglobin A1C 5.9 % (4.5-5.6)
--- NOTE | 2019-07-18 08:33 | Emergency Department Note ---
Entered by Tico Villasenor acting as a scribe for Donna James MD History of Present Illness General Chief complaint: Shortness of Breath/Dyspnea Stated complaint: SOB Source: patient Limitations: no limitations History of Present Illness Onset (ago): hour(s) (last night) Location: chest Pain Consistency: + other (worsening) Quality: + constant Associated symptoms: + fever/chills and + other (gurgling) Treatments prior to arrival: other (duoneb, albuterol, solu medrol) The patient is a 89 year old female who presents to the Emergency Room with complaints of constant and worsening SOB starting last night. The patient states she had a cough and congestion starting last night. She states she called her PCP and her symptoms got worse throughout the night. The patient's family member notes the patient was "gurgling" and had a fever of 100 at 0330. The family member notes the patient received DuoNeb, Albuterol, and Solu Medrol. The patient states she normally does not wear oxygen. Home Medications Home Medications Medication Instructions Recorded Confirmed Type cholecalciferol (vitamin D3) 2,000 unit PO DAILY 08/18/18 07/18/19 History [Vitamin D3] cyanocobalamin (vitamin B-12) 1,000 mcg IM MONTHLY 08/18/18 07/18/19 History gabapentin 100 mg PO TID 08/18/18 07/18/19 History losartan 100 mg PO DAILY 08/18/18 07/18/19 History metoprolol succinate 25 mg PO DAILY 08/18/18 07/18/19 History omeprazole 20 mg PO QAM 08/18/18 07/18/19 History ferrous sulfate [iron] 325 mg PO DAILY 03/27/19 07/18/19 History levothyroxine 100 mcg PO QAM 03/27/19 07/18/19 History nitroglycerin [Nitrostat] 0.4 mg SUBLINGUAL DIRECTED PRN 03/27/19 07/18/19 History warfarin [Jantoven] 2 mg PO SUTUWETHFRSA 03/27/19 07/18/19 History citalopram 10 mg PO DAILY 06/30/19 07/18/19 History furosemide 20 mg PO QAM 06/30/19 07/18/19 History nystatin 1 applic TOPICAL BID 06/30/19 07/18/19 History sodium chloride 1,000 mg PO BID 06/30/19 07/18/19 History warfarin 1 mg PO MO 06/30/19 07/18/19 History sennosides-docusate sodium 1 tab-cap PO BID 07/07/19 07/18/19 History [Senna-S] acetaminophen 650 mg PO Q4H PRN 07/18/19 07/18/19 History artificial tears(hypromellose) 1 drp OPHTHALMIC (EYE) BID 07/18/19 07/18/19 History nitrofurantoin monohyd/m-cryst 100 mg PO BID 07/18/19 07/18/19 History Allergies Allergy/AdvReac Type Severity Reaction Status Date / Time Cipro Allergy Unknown RASH,SEVERE Verified 03/14/18 21:16 HEADACHE ciprofloxacin Allergy Unknown RASH,SEVERE Verified 07/18/19 04:38 HEADACHE aspirin AdvReac Intermediate nose bleeds Verified 07/18/19 04:38 Sulfa (Sulfonamide AdvReac Unknown HEADACHE Verified 07/18/19 04:38 Antibiotics) WITH BACTRIM Past Med/Surg History Medical History A-fib Hypothyroidism (Chronic) Female stress incontinence (Chronic) Iron deficiency anemia (Chronic) Chronic venous stasis (Chronic) Diastolic dysfunction (Chronic) GERD (gastroesophageal reflux disease) (Chronic) Paroxysmal atrial fibrillation (Chronic) HTN (hypertension) (Chronic) Surgical History History of cystoscopy (Resolved) Family History Other Diabetes Hypertension Lung cancer Social History Preferred Language: Armenian Communication Ability: Impaired Communication Ability Comment: Unresponsive at this time. 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 and A total of 10 systems reviewed and were otherwise negative Physical Exam Vital Signs Vital Signs - 24 hr 07/18/19 04:22 07/18/19 04:31 07/18/19 05:00 Temperature 38.4 C H Temperature Source Rectal Sepsis Recent Fever Within 48 Hours No Sepsis Action Taken by Nursing No Action Required Pulse Rate 138 H 113 H Pulse Rate [Apical] Pulse Rate from SpO2 Sensor 106 H Respiratory Rate 18 25 H Respiratory Effort / Characteristics Non-Labored Spontaneous Accessory Muscle Use Labored Respiratory Depth Normal Respiratory Pattern Blood Pressure 181/124 H 142/93 H Blood Pressure [Left Arm] Blood Pressure Mean 143 109 Blood Pressure Mean [Left Arm] Pulse Oximetry 93 91 Oxygen Delivery Method Nasal Cannula Room Air Oxygen Flow Rate 4 07/18/19 05:01 07/18/19 05:30 07/18/19 05:32 Temperature Temperature Source Sepsis Recent Fever Within 48 Hours Sepsis Action Taken by Nursing Pulse Rate 109 H Pulse Rate [Apical] 102 H Pulse Rate from SpO2 Sensor 105 H Respiratory Rate 25 H 22 Respiratory Effort / Characteristics Non-Labored Respiratory Depth Normal Respiratory Pattern Regular Blood Pressure Blood Pressure [Left Arm] 129/76 Blood Pressure Mean Blood Pressure Mean [Left Arm] 93 Pulse Oximetry 91 92 92 Oxygen Delivery Method Oxymask Oxymask Oxygen Flow Rate 4 4 07/18/19 06:30 Temperature Temperature Source Sepsis Recent Fever Within 48 Hours Sepsis Action Taken by Nursing Pulse Rate Pulse Rate [Apical] 87 Pulse Rate from SpO2 Sensor Respiratory Rate 20 Respiratory Effort / Characteristics Respiratory Depth Respiratory Pattern Blood Pressure Blood Pressure [Left Arm] 120/75 Blood Pressure Mean Blood Pressure Mean [Left Arm] 90 Pulse Oximetry 94 Oxygen Delivery Method Room Air Oxygen Flow Rate Vital signs reviewed. General: Elderly and critically ill-appearing 89 year-old female, in no significant distress. Patient has nasal cannula O2 in place. HEENT: No scleral icterus, PERRLA, neck supple. Atraumatic. Cardiovascular: Tachycardic and irregular rhythm. No extra sounds. Pulmonary: Normal work of breathing. Coarse breath sounds with a wet cough. Abdomen: Soft, nontender, nondistended, positive bowel sounds. Musculoskeletal: Atraumatic, no peripheral edema. Neurologic: Patient somnolent but arousable, answers some simple questions. Skin: Warm, dry, no rash Course 0423: The patient was evaluated in room B3B, and a complete history and physical examination were performed. 0609: I discussed the patient's case with Dr. Pierre Shaikh Hospitalist. He will evaluate the patient for further management Administered Medications Acetaminophen (Tylenol) 650 mg PO Q4H PRN PRN Reason: pain/fever Stop: 08/17/19 09:57 Last Admin: 07/18/19 17:05 Dose: 650 mg Documented by: [id number] Artificial Tears (Artificial Tears) 1 drops OP BID [facility] Stop: 08/17/19 10:59 Last Admin: 07/19/19 07:48 Dose: Not Given Documented by: [id number] Admin: 07/18/19 21:16 Dose: Not Given Documented by: [id number] Admin: 07/18/19 12:12 Dose: Not Given Documented by: [id number] Citalopram Hydrobromide (Celexa) 10 mg PO DAILY [facility] Stop: 08/17/19 10:59 Last Admin: 07/19/19 07:46 Dose: 10 mg Documented by: [id number] Admin: 07/18/19 12:12 Dose: Not Given Documented by: [id number] Ferrous Sulfate (Feosol) 325 mg PO DAILY [facility] Stop: 08/17/19 10:59 Last Admin: 07/19/19 07:48 Dose: 325 mg Documented by: [id number] Admin: 07/18/19 12:13 Dose: Not Given Documented by: [id number] Furosemide (Lasix) 20 mg PO QAM [facility] Stop: 08/18/19 08:59 Last Admin: 07/19/19 07:48 Dose: 20 mg Documented by: [id number] Gabapentin (Neurontin) 100 mg PO TID [facility] Stop: 08/18/19 13:59 Last Admin: 07/19/19 14:59 Dose: 100 mg Documented by: [id number] Piperacillin Sod/Tazobactam (Sod 3.375 gm/ Dextrose) 115 mls @ 28.75 mls/hr IV Q8H GAIL; Protocol Stop: 07/25/19 11:59 Last Infusion: 07/19/19 16:41 Dose: 0 mls/hr Documented by: [id number] Admin: 07/19/19 12:30 Dose: 28.8 mls/hr Documented by: [id number] Infusion: 07/19/19 08:33 Dose: 0 mls/hr Documented by: [id number] Admin: 07/19/19 04:33 Dose: 28.8 mls/hr Documented by: [id number] Infusion: 07/18/19 23:55 Dose: 0 mls/hr Documented by: [id number] Admin: 07/18/19 19:54 Dose: 28.8 mls/hr Documented by: [id number] Infusion: 07/18/19 16:14 Dose: 0 mls/hr Documented by: [id number] Admin: 07/18/19 12:14 Dose: 28.8 mls/hr Documented by: [id number] Ipratropium [place] (Atrovent 0.02% 0.5mg/2.5ml) 0.5 mg INH Q6R GAIL Stop: 08/17/19 12:59 Last Admin: 07/19/19 13:18 Dose: 0.5 mg Documented by: [id number] Admin: 07/19/19 07:01 Dose: 0.5 mg Documented by: [id number] Admin: 07/19/19 01:16 Dose: 0.5 mg Documented by: [id number] Admin: 07/18/19 19:15 Dose: Not Given Documented by: [id number] Admin: 07/18/19 13:26 Dose: 0.5 mg Documented by: [id number] Levalbuterol HCl (Xopenex 1.25mg/0.5ml Neb) 1.25 mg INH Q6R GAIL Stop: 08/17/19 12:59 Last Admin: 07/19/19 13:18 Dose: 1.25 mg Documented by: [id number] Admin: 07/19/19 07:01 Dose: 1.25 mg Documented by: [id number] Admin: 07/19/19 01:16 Dose: 1.25 mg Documented by: [id number] Admin: 07/18/19 19:15 Dose: Not Given Documented by: [id number] Admin: 07/18/19 13:26 Dose: 1.25 mg Documented by: [id number] Levothyroxine Sodium (Synthroid) 100 mcg PO DAILYBB [facility] Stop: 08/17/19 10:59 Last Admin: 07/19/19 06:02 Dose: Not Given Documented by: [id number] Admin: 07/18/19 12:13 Dose: Not Given Documented by: [id number] Losartan Potassium (Cozaar) 100 mg PO DAILY [facility] Stop: 08/17/19 10:59 Last Admin: 07/19/19 07:47 Dose: 100 mg Documented by: [id number] Admin: 07/18/19 12:13 Dose: Not Given Documented by: [id number] Pantoprazole Sodium (Protonix) 40 mg PO DAILY [facility] Stop: 08/17/19 10:59 Last Admin: 07/19/19 07:47 Dose: 40 mg Documented by: [id number] Admin: 07/18/19 12:13 Dose: Not Given Documented by: [id number] Potassium Chloride (Klor-Con M10) 20 meq PO BID [facility] Stop: 08/18/19 08:59 Last Admin: 07/19/19 07:48 Dose: 20 meq Documented by: [id number] Senna/Docusate Sodium (Senokot S) 1 tab PO BID [facility] Stop: 08/17/19 10:59 Last Admin: 07/19/19 07:47 Dose: 1 tab Documented by: [id number] Admin: 07/18/19 21:16 Dose: Not Given Documented by: [id number] Admin: 07/18/19 12:13 Dose: Not Given Documented by: [id number] Discontinued Medications Famotidine (Pepcid 20mg Iv Push) 20 mg IV ONE STA Stop: 07/18/19 05:58 Last Admin: 07/18/19 06:11 Dose: Not Given Documented by: [id number] Furosemide (Lasix) 40 mg IV NOW STA Stop: 07/18/19 04:28 Last Admin: 07/18/19 04:48 Dose: 40 mg Documented by: [id number] Piperacillin Sod/Tazobactam Sod (Zosyn) 4.5 gm in 120 mls @ 240 mls/hr IV NOW ONE Stop: 07/18/19 05:39 Last Infusion: 07/18/19 06:11 Dose: 0 mls/hr Documented by: [id number] Admin: 07/18/19 05:27 Dose: 240 mls/hr Documented by: [id number] Vancomycin HCl 1,750 mg/ (Sodium Chloride) 535 mls @ 200 mls/hr IV NOW ONE Stop: 07/18/19 08:37 Last Infusion: 07/18/19 08:48 Dose: 0 mls/hr Documented by: [id number] Admin: 07/18/19 06:07 Dose: 200 mls/hr Documented by: [id number] Acetaminophen (Ofirmev) 1,000 mg in 100 mls @ 200 mls/hr IV NOW ONE; Protocol Stop: 07/18/19 06:50 Last Infusion: 07/18/19 07:03 Dose: 0 mls/hr Documented by: [id number] Admin: 07/18/19 06:36 Dose: 200 mls/hr Documented by: [id number] Magnesium Sulfate/Dextrose (Magnesium Sulfate / D5w) 1 gm in 100 mls @ 100 mls/hr IV ONE ONE Stop: 07/18/19 07:21 Last Infusion: 07/18/19 10:23 Dose: 0 mls/hr Documented by: [id number] Admin: 07/18/19 06:54 Dose: 100 mls/hr Documented by: [id number] Magnesium Sulfate/Dextrose (Magnesium Sulfate / D5w) 1 gm in 100 mls @ 100 mls/hr IV ONE ONE Stop: 07/18/19 08:17 Last Admin: 07/18/19 11:06 Dose: Not Given Documented by: [id number] Potassium Chloride (K Hernan / Wtr) 10 meq in 100 mls @ 100 mls/hr IV Q1H GAIL Stop: 07/18/19 12:29 Last Infusion: 07/18/19 17:12 Dose: 0 mls/hr Documented by: [id number] Admin: 07/18/19 14:12 Dose: 100 mls/hr Documented by: [id number] Infusion: 07/18/19 13:12 Dose: 100 mls/hr Documented by: [id number] Admin: 07/18/19 12:12 Dose: 100 mls/hr Documented by: [id number] Ipratropium [place] (Atrovent 0.02% 0.5mg/2.5ml) 0.5 mg INH 45 ONE Stop: 07/18/19 07:46 Last Admin: 07/18/19 10:49 Dose: 0.5 mg Documented by: [id number] Labetalol HCl (Normodyne) 10 mg IV NOW STA Stop: 07/18/19 04:30 Last Admin: 07/18/19 04:46 Dose: 10 mg Documented by: [id number] Cosigned by: [id number] Levalbuterol HCl (Xopenex 1.25mg/0.5ml Neb) 1.25 mg INH 0745 ONE Stop: 07/18/19 07:46 Last Admin: 07/18/19 10:49 Dose: 1.25 mg Documented by: [id number] Methylprednisolone (Solumedrol) 20 mg IV NOW STA Stop: 07/18/19 06:25 Last Admin: 07/18/19 06:54 Dose: Not Given Documented by: [id number] Metoprolol Succinate (Toprol Xl) 25 mg PO DAILY [facility]IL Stop: 08/17/19 10:59 Last Admin: 07/19/19 07:47 Dose: 25 mg Documented by: [id number] Admin: 07/18/19 12:13 Dose: Not Given Documented by: [id number] Medical Decision Making Differential Diagnosis Differential diagnoses includes but is not limited to pneumonia, bronchitis, COPD/Asthma exacerbation, pneumothorax, pulmonary embolism, congestive heart failure, acute coronary syndrome Medical Records Attestation: I reviewed the patient's medical records. Home Medications Current Medication List: was personally reviewed by me Laboratory Data Attestation: I reviewed the patient's lab results. Result diagrams: 07/19/19 05:35 07/19/19 05:35 Lab Results 07/18/19 07/18/19 07/18/19 Range/Units 04:15 04:49 05:06 WBC 11.69 H (4.8-10.8) K/uL RBC 4.76 (4.2-5.4) M/uL Hgb 14.4 (12.0-16.0) g/dL Hct 42.0 (37-47) % MCV 88.2 (80-100) fL MCH 30.3 (25-34) pg MCHC 34.3 (32-36) g/dL RDW Std Deviation 45.4 (36.4-46.3) fL RDW Coeff of Evelio 14.0 (11.5-14.5) % Plt Count 237 (130-400) K/uL MPV 10.9 H (7.4-10.4) fL Immature Gran % (Auto) 0.3 % Neut % (Auto) 89.8 % Lymph % (Auto) 3.3 % [place] % (Auto) 6.4 % Eos % (Auto) 0.1 % Baso % (Auto) 0.1 % Immature Gran # (Auto) 0.03 H (0.00-0.02) K/uL Neut # (Auto) 10.50 H (1.4-6.5) K/uL Lymph # (Auto) 0.39 L (1.2-3.4) K/uL [place] # (Auto) 0.75 H (0.11-0.59) K/uL Eos # (Auto) 0.01 (0-0.5) K/uL Baso # (Auto) 0.01 (0-0.2) K/uL PT (9.0-12.0) Seconds INR (0.9-1.1) APTT (21.0-31.0) Seconds PTT Ratio ABG pH (7.35-7.45) ABG pCO2 (35-46) mmHg ABG pO2 (80-95) mm/Hg ABG HCO3 (19-24) mmol/L ABG O2 Saturation (90-95) % ABG Base Excess (-9-1.8) mEq/L Francis Test (Pos) Barometric Pressure mm/Hg Oxygen Given Sodium (136-145) mmol/L Potassium (3.5-5.1) mmol/L Chloride (98-107) mmol/L Carbon Dioxide (21-32) mmol/L Anion Gap (3-11) BUN (7-18) mg/dl Creatinine (0.6-1.2) mg/dl Est Cr Clr Drug Dosing ml/min Est GFR ( Amer) Est GFR (Non-Af Amer) BUN/Creatinine Ratio (10-20) Glucose (70-99) mg/dl Estimat Average Glucose mg/dl Hemoglobin A1c (4.5-5.6) % Lactate (0.4-2.0) mmol/L Calcium (8.5-10.1) mg/dl Magnesium (1.8-2.4) mg/dl Total Bilirubin (0.2-1) mg/dl AST (15-37) U/L ALT (12-78) U/L Alkaline Phosphatase (45-117) U/L Troponin I (0-0.045) ng/ml NT-Pro-B Natriuret Pep (0-1800) pg/ml Total Protein (6.4-8.2) gm/dl Albumin (3.4-5.0) gm/dl Globulin (2.5-4.0) gm/dl Albumin/Globulin Ratio (0.9-2) Urine Color Dark Yellow Urine Appearance Turbid A (Clear) Urine pH 5.5 (4.5-7.5) Ur Specific Wilsey 1.025 (1.000-1.030) Urine Protein 3+ H (Negative) Urine Glucose (UA) Negative (Negative) Urine Ketones Trace H (Negative) Urine Blood 3+ H (Negative) Urine Nitrite Positive A (Negative) Urine Bilirubin Negative (Negative) Urine Urobilinogen Negative (Negative) Ur Leukocyte Esterase 2+ H (Negative) Urine WBC (Auto) >30 H (0-5) /hpf Urine RBC (Auto) >30 H (0-4) /hpf U Hyaline Cast (Auto) 1-5 (0-5) /lpf U Epithel Cells (Auto) 10-20 H (0-5) /lpf Urine Bacteria (Auto) 4+ H (Negative) Urine Yeast Present A (None Prsent) Influenza Type A (PCR) Neg for Influ A (Neg) Influenza Type B (PCR) Neg for Influ B (Neg) 07/18/19 07/18/19 07/18/19 Range/Units 05:06 05:06 05:06 WBC (4.8-10.8) K/uL RBC (4.2-5.4) M/uL Hgb (12.0-16.0) g/dL Hct (37-47) % MCV (80-100) fL MCH (25-34) pg MCHC (32-36) g/dL RDW Std Deviation (36.4-46.3) fL RDW Coeff of Evelio (11.5-14.5) % Plt Count (130-400) K/uL MPV (7.4-10.4) fL Immature Gran % (Auto) % Neut % (Auto) % Lymph % (Auto) % [place] % (Auto) % Eos % (Auto) % Baso % (Auto) % Immature Gran # (Auto) (0.00-0.02) K/uL Neut # (Auto) (1.4-6.5) K/uL Lymph # (Auto) (1.2-3.4) K/uL [place] # (Auto) (0.11-0.59) K/uL Eos # (Auto) (0-0.5) K/uL Baso # (Auto) (0-0.2) K/uL PT 31.0 H (9.0-12.0) Seconds INR 3.3 H (0.9-1.1) APTT 37.8 H (21.0-31.0) Seconds PTT Ratio 1.4 ABG pH (7.35-7.45) ABG pCO2 (35-46) mmHg ABG pO2 (80-95) mm/Hg ABG HCO3 (19-24) mmol/L ABG O2 Saturation (90-95) % ABG Base Excess (-9-1.8) mEq/L Francis Test (Pos) Barometric Pressure mm/Hg Oxygen Given Sodium 139 (136-145) mmol/L Potassium 3.5 (3.5-5.1) mmol/L Chloride 105 (98-107) mmol/L Carbon Dioxide 27 (21-32) mmol/L Anion Gap 7.0 (3-11) BUN 10 (7-18) mg/dl Creatinine 0.83 (0.6-1.2) mg/dl Est Cr Clr Drug Dosing 47.4 ml/min Est GFR ( Amer) 72.5 Est GFR (Non-Af Amer) 62.5 BUN/Creatinine Ratio 11.9 (10-20) Glucose 164 H (70-99) mg/dl Estimat Average Glucose mg/dl Hemoglobin A1c (4.5-5.6) % Lactate 1.5 (0.4-2.0) mmol/L Calcium 9.0 (8.5-10.1) mg/dl Magnesium 1.7 L (1.8-2.4) mg/dl Total Bilirubin 0.6 (0.2-1) mg/dl AST 7 L (15-37) U/L ALT 14 (12-78) U/L Alkaline Phosphatase 61 (45-117) U/L Troponin I 0.016 (0-0.045) ng/ml NT-Pro-B Natriuret Pep (0-1800) pg/ml Total Protein 7.5 (6.4-8.2) gm/dl Albumin 3.1 L (3.4-5.0) gm/dl Globulin 4.4 H (2.5-4.0) gm/dl Albumin/Globulin Ratio 0.7 L (0.9-2) Urine Color Urine Appearance (Clear) Urine pH (4.5-7.5) Ur Specific Wilsey (1.000-1.030) Urine Protein (Negative) Urine Glucose (UA) (Negative) Urine Ketones (Negative) Urine Blood (Negative) Urine Nitrite (Negative) Urine Bilirubin (Negative) Urine Urobilinogen (Negative) Ur Leukocyte Esterase (Negative) Urine WBC (Auto) (0-5) /hpf Urine RBC (Auto) (0-4) /hpf U Hyaline Cast (Auto) (0-5) /lpf U Epithel Cells (Auto) (0-5) /lpf Urine Bacteria (Auto) (Negative) Urine Yeast (None Prsent) Influenza Type A (PCR) (Neg) Influenza Type B (PCR) (Neg) 07/18/19 07/18/19 07/18/19 Range/Units 05:06 06:46 06:46 WBC (4.8-10.8) K/uL RBC (4.2-5.4) M/uL Hgb (12.0-16.0) g/dL Hct (37-47) % MCV (80-100) fL MCH (25-34) pg MCHC (32-36) g/dL RDW Std Deviation (36.4-46.3) fL RDW Coeff of Evelio (11.5-14.5) % Plt Count (130-400) K/uL MPV (7.4-10.4) fL Immature Gran % (Auto) % Neut % (Auto) % Lymph % (Auto) % [place] % (Auto) % Eos % (Auto) % Baso % (Auto) % Immature Gran # (Auto) (0.00-0.02) K/uL Neut # (Auto) (1.4-6.5) K/uL Lymph # (Auto) (1.2-3.4) K/uL [place] # (Auto) (0.11-0.59) K/uL Eos # (Auto) (0-0.5) K/uL Baso # (Auto) (0-0.2) K/uL PT (9.0-12.0) Seconds INR (0.9-1.1) APTT (21.0-31.0) Seconds PTT Ratio ABG pH 7.45 (7.35-7.45) ABG pCO2 37 (35-46) mmHg ABG pO2 84 (80-95) mm/Hg ABG HCO3 26 H (19-24) mmol/L ABG O2 Saturation 97.0 H (90-95) % ABG Base Excess 1.7 (-9-1.8) mEq/L Francis Test Pos (Pos) Barometric Pressure 738.0 mm/Hg Oxygen Given 4 L Sodium (136-145) mmol/L Potassium (3.5-5.1) mmol/L Chloride (98-107) mmol/L Carbon Dioxide (21-32) mmol/L Anion Gap (3-11) BUN (7-18) mg/dl Creatinine (0.6-1.2) mg/dl Est Cr Clr Drug Dosing ml/min Est GFR ( Amer) Est GFR (Non-Af Amer) BUN/Creatinine Ratio (10-20) Glucose (70-99) mg/dl Estimat Average Glucose 123 mg/dl Hemoglobin A1c 5.9 H (4.5-5.6) % Lactate (0.4-2.0) mmol/L Calcium (8.5-10.1) mg/dl Magnesium (1.8-2.4) mg/dl Total Bilirubin (0.2-1) mg/dl AST (15-37) U/L ALT (12-78) U/L Alkaline Phosphatase (45-117) U/L Troponin I (0-0.045) ng/ml NT-Pro-B Natriuret Pep 2601 H (0-1800) pg/ml Total Protein (6.4-8.2) gm/dl Albumin (3.4-5.0) gm/dl Globulin (2.5-4.0) gm/dl Albumin/Globulin Ratio (0.9-2) Urine Color Urine Appearance (Clear) Urine pH (4.5-7.5) Ur Specific Wilsey (1.000-1.030) Urine Protein (Negative) Urine Glucose (UA) (Negative) Urine Ketones (Negative) Urine Blood (Negative) Urine Nitrite (Negative) Urine Bilirubin (Negative) Urine Urobilinogen (Negative) Ur Leukocyte Esterase (Negative) Urine WBC (Auto) (0-5) /hpf Urine RBC (Auto) (0-4) /hpf U Hyaline Cast (Auto) (0-5) /lpf U Epithel Cells (Auto) (0-5) /lpf Urine Bacteria (Auto) (Negative) Urine Yeast (None Prsent) Influenza Type A (PCR) (Neg) Influenza Type B (PCR) (Neg) Imaging Data My Impression: Chest X-Ray: Pulmonary vascular congestion. ECG Data Attestation: I personally reviewed and interpreted this ECG as follows: Indication: + SOB/dyspnea Rate (beats per minute): 130 Rhythm: + atrial fibrillation (with RVR) ECG Intervals/blocks: + Prolonged QT (553) ECG [place]: + Left axis deviation ECG ST segments: + ST depression ECG Findings: + Other (Poor quality baseline. Low voltage. Previous septal infarct. ) Blood Pressure Blood Pressure Findings: Elevated blood pressure Blood Pressure Disposition: Referred to patients primary care provider MDM Narrative This pt was evaluated and appeared to be in no distress. IV access was obtained and lab work was drawn. Pt was placed on the cardiac rehabilitation specialist. Lactate is WNL, blod cx pending. WBC is mildly elevated and pt is noted to be elevated. Pt has apparently been tx for UTI recently. UA is positive. IV vanco and zosyn were ordered. Pt was given IV labetalol 10 mg for rapid atrial fib and HTN. IV lasix 40 mg was given for vascular congestion on CXR. Pt was d/w hospitalist for further management. Impression & Plan Fever, UTI (urinary tract infection) Critical Care Time Critical Care Time: Yes (30) The high probability of a clinically significant, sudden or life threatening deterioration required my full and direct attention, intervention and personal management. The aggregate critical care time was 30 minutes. This time is in addition to time spent performing reported procedures but includes the following: [x] Data Review and interpretation [x] Patient assessment and monitoring of vital signs [x] Documentation [x] Medication orders and management Discharge Plan Visit Data *Final* Discharge Date/Time: 07/18/19 09:01 Chief Complaint: Shortness of Breath/Dyspnea Stated Complaint: SOB ED Provider: Donna James Discharge Problem: Fever, UTI (urinary tract infection) Patient Disposition: Admitted As Inpatient Discharge Instructions Interventions: ED Discharge Assessment Last Done: 07/18/19 09:01 Discharge Problem: Fever Qualifiers: Fever type: unspecified Qualified Code(s): R50.9 - Fever, unspecified UTI (urinary tract infection) Qualifiers: Urinary tract infection type: site unspecified Hematuria presence: without hematuria Qualified Code(s): N39.0 - Urinary tract infection, site not specified The scribe's documentation has been prepared under my direction and personally reviewed by me in its entirety. I confirm that the note above accurately reflects all work, treatment, procedures, and medical decision making performed by me.
--- NOTE | 2019-07-18 09:19 | CT Scan Report ---
CT head/brain wo con CLINICAL HISTORY: Headache. Acute change in mental status. COMPARISON STUDY: 07/07/2019 TECHNIQUE: Axial CT of the brain is performed from the vertex to the skull base. IV contrast was not administered for this examination. A dose lowering technique was utilized adhering to the principles of ALARA. CT DOSE: FINDINGS: No intra or extra-axial mass lesions are visualized. There is no CT evidence of acute cortical infarc tion. There is no evidence of midline shift. There is no acute hemorrhage. No calvarial fractures ar e visualized. There are moderately severe white matter hypodensities likely on a small vessel basis. 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 There is mild ventricular dilatation, finding which is felt to be secondary to volume loss. There is no evidence of acute sinusitis IMPRESSION: 1. No acute intracranial findings 2. Extensive white matter disease likely on a small vessel ischemic basis. 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 07/18/2019 9:18 AM
--- NOTE | 2019-07-18 09:19 | CT Scan Report ---
CT SCAN OF THE ABDOMEN AND PELVIS WITHOUT CONTRAST CLINICAL HISTORY: Recurrent urinary tract infections. CHANGE IN MENTAL STATUS. POSSIBLE SEPSIS. COMPARISON STUDY: October 2010 TECHNIQUE: CT scan of the abdomen and pelvis was performed from the lung bases to the proximal femurs . Images are reviewed in the axial, sagittal, and coronal planes. IV contrast was not administered fo r this examination. A dose lowering technique was utilized adhering to the principles of ALARA. CT DOSE: 1410.27 mGy.cm FINDINGS: Lower chest: There is a large hiatal hernia. There are bilateral pleural effusions with associated lo wer lobe airspace opacities, likely atelectatic. There are coronary artery calcifications. Liver: The unenhanced liver is normal in size, contour, and attenuation. There is no intrahepatic unruly iary ductal dilatation. Gallbladder: Contracted Spleen: Normal in size and attenuation. Pancreas: Unremarkable. Adrenal glands: Unremarkable. Kidneys: There is a 26 mm exophytic left renal lesion. Despite exceeding water attenuation, this like ly represents a cyst, there is a hyperdense 7 mm mid pole left renal lesion, likely representing a hy perdense renal cyst. There is no hydronephrosis. No renal, ureteral, or bladder calculi are visualize d. Bowel: There are no transition zones to indicate bowel obstruction. There is no evidence of acute div erticulitis. The appendix is not visualized with certainty. There are no findings to indicate acute a ppendicitis. Peritoneum: There is no free intraperitoneal air. There is no cyst navicular ascites. There is mild p resacral soft tissue thickening. Vasculature: The abdominal aorta is normal in course and caliber. Adenopathy: None. Pelvic viscera: The uterus is surgically absent. There is a 5 cm cystic left adnexal lesion, likely o varian. This measured 35 mm in October 2010. There is minimal bladder wall thickening, and minimal i nfiltration of perivesical fat. Correlation with urinalysis is recommended to exclude a cystitis. Skeletal structures: No destructive osseous lesions are seen. The study is compromised due to motion artifact. IMPRESSION: 1. Motion degraded study 2. Large hiatal hernia 3. Moderate right pleural effusion and small left pleural effusion with associated basilar opacities likely atelectatic 4. No evidence of bowel obstruction. No evidence of free air 5. Left renal lesions statistically representing cysts. No renal, ureteral, or bladder calculi identi fied 6. Enlarging 5 cm cystic left adnexal lesion likely ovarian 7. No evidence of acute appendicitis. No evidence of acute diverticulitis 8. Minimal bladder wall thickening and infiltration of perivesical fat. Correlation with urinalysis i s recommended to exclude cystitis Electronically signed by: Efrain Velazco M.D. 07/18/2019 9:18 AM
[2019-07-18] MEDS ORDERED: TRAMADOL HCL 50 MG TABLET PO PRN (09:58)
[2019-07-18] MEDS ORDERED: PROMETHAZINE HCL 12.5 MG in SODIUM CHLORIDE 0.9% 50 ML IV PRN (09:58)
[2019-07-18] MEDS ORDERED: ACETAMINOPHEN 325 MG TAB PO PRN (09:58)
[2019-07-18] MEDS: ARTIFICIAL TEARS OP SCH ×2 (12:12→21:16)
[2019-07-18] MEDS: CITALOPRAM 20 MG TAB PO SCH (12:12)
[2019-07-18] MEDS: POTASSIUM CHLORIDE / WTR 10 MEQ/100 ML PLCT IV SCH ×2 (12:12→14:12)
[2019-07-18] MEDS: PANTOprazole 40 MG TAB PO SCH (12:13)
[2019-07-18] MEDS: FERROUS SULFATE 325 MG TAB PO SCH (12:13)
[2019-07-18] MEDS: DOCUSATE SODIUM/SENNA 50/8.6MG TAB PO SCH ×2 (12:13→21:16)
[2019-07-18] MEDS: LEVOTHYROXINE SODIUM 100 MCG TABLET PO SCH (12:13)
[2019-07-18] MEDS: METOPROLOL SUCC 25MG EXT REL TAB PO SCH (12:13)
[2019-07-18] MEDS: LOSARTAN POTASSIUM 50 MG TAB PO SCH (12:13)
[2019-07-18] MEDS: PIPERACILLIN/TAZOBACTAM 3.375 GM in DEXTROSE 5% 100 ML IV SCH ×2 (12:14→19:54)
[2019-07-18] MEDS ORDERED: XOPENEX/ATROVENT 1.25mg/0.5MG NEB COMBO NEB SCH (13:00)
[2019-07-18] MEDS: IPRATROPIUM BROMIDE NEB SOLN 0.02% 2.5 ML VIAL INH SCH ×2 (13:26→19:15)
[2019-07-18] MEDS: LEVALBUTEROL 1.25MG/0.5ML NEB INH SCH ×2 (13:26→19:15)
[2019-07-18] MEDS: ACETAMINOPHEN 325 MG TAB PO PRN (17:05)
--- NOTE | 2019-07-18 17:55 | Hospitalist Progress Note ---
Date of Service July 18, 2019 Assessment & Plan (1) Encephalopathy: Metabolic encephalopathy Multifactorial: In setting of infection, hypoxia, dementia CT head:No acute intracranial findings. Extensive white matter disease likely on a small vessel ischemic basis. 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 Bilateral pleural effusions. Suspected large hiatal sandra Continue IV antibiotics, Nebs Aspiration precautions Supplemental oxygen as needed Continue home diuretics Monitor volume status Sepsis Complicated UTI H/O multiple UTIs in the past H/O stress incontinence Continue Zosyn day#1 Blood, urine culture: pending Hypertensive urgency Likely situational Continue metoprolol, losartan Afib RVR In setting of sepsis INR slightly supratherapeutic Continue metoprolol for rate control Hold Coumadin today Monitor INR: 3.3 Rate is controlled currently H/O CVA as per records Prediabetes Hb A1C: 5.9 Not on aspirin due to history of nosebleed DVT Px: INR supratherapeutic Resume Coumadin as able Code Status DNI/DNR No aggressive/heroic measures as per family Family prefers to consider comfort measures if no improvement clinically after 24 to 48 hrs Subjective Patient was seen and examined at bedside Poor historian secondary to decreased hearing, lethargy Complains of dyspnea, dysuria Denies any chest pain Family at bedside Review of Systems Review of Systems: All systems reviewed & are unremarkable except as noted in HPI & below Physical Exam Physical Exam: Physical Exam: Vitals signs as noted above General Appearance:Elderly, chronic ill appearing, lethargic, no apparent di stress Head: normocephalic, Atraumatic, Poor hearing Eyes: normal inspection, EOMI, Poor vision Neck: supple, Trachea midline Respiratory/Chest: Normal breath sounds, B/L rhonchi/rales, No accessory muscle use Cardiovascular: Irregularly irregular, No murmur Abdomen/GI:Soft, Non tender, Bowel sounds present Extremities/Musculoskelatal:normal inspection, B/L LE edema Neurologic/Psych:Oriented to person, place, Complete neuro exam could not be performed Skin: normal color, warm Results & Data Vital Signs (Past 12 Hours) Vital Signs Temp Pulse Pulse Pulse Resp BP BP 07/18/19 15:33 36.5 C 95 H 21 150/84 H 07/18/19 14:43 74 07/18/19 13:28 70 16 07/18/19 11:51 36.2 C L 84 18 134/88 07/18/19 10:49 77 17 07/18/19 09:30 36.8 C 82 18 135/90 07/18/19 06:30 87 20 120/75 Pulse Ox 07/18/19 15:33 93 07/18/19 14:43 07/18/19 13:28 91 07/18/19 11:51 94 07/18/19 10:49 92 07/18/19 09:30 3 L 07/18/19 06:30 94 Laboratory Results Short CBC 07/18/19 Range/Units 05:06 WBC 11.69 H (4.8-10.8) K/uL Hgb 14.4 (12.0-16.0) g/dL Hct 42.0 (37-47) % Plt Count 237 (130-400) K/uL BMP 07/18/19 05:06 Sodium 139 Potassium 3.5 Chloride 105 Carbon Dioxide 27 BUN 10 Creatinine 0.83 Glucose 164 H Calcium 9.0 Cardiac Enzymes 07/18/19 Range/Units 05:06 Troponin I 0.016 (0-0.045) ng/ml Liver Function 07/18/19 Range/Units 05:06 Total Bilirubin 0.6 (0.2-1) mg/dl AST 7 L (15-37) U/L ALT 14 (12-78) U/L Alkaline Phosphatase 61 (45-117) U/L Albumin 3.1 L (3.4-5.0) gm/dl Urine 07/18/19 Range/Units 04:15 Urine Color Dark Yellow Urine Appearance Turbid A (Clear) Urine pH 5.5 (4.5-7.5) Ur Specific [place] 1.025 (1.000-1.030) Urine Protein 3+ H (Negative) Urine Glucose (UA) Negative (Negative)
[2019-07-19] MEDS: IPRATROPIUM BROMIDE NEB SOLN 0.02% 2.5 ML VIAL INH SCH ×4 (01:16→18:50)
[2019-07-19] MEDS: LEVALBUTEROL 1.25MG/0.5ML NEB INH SCH ×4 (01:16→18:50)
[2019-07-19] MEDS: PIPERACILLIN/TAZOBACTAM 3.375 GM in DEXTROSE 5% 100 ML IV SCH ×3 (04:33→20:31)
[2019-07-19 05:57] LABS: Basophils # (auto) 0.02 K/uL (0-0.2); Basophils % (auto) 0.3 %; Eosinophils # (auto) 0.01 K/uL (0-0.5); Eosinophils % (auto) 0.1 %; Hematocrit (blood only) 38.3 % (37-47); Hemoglobin 12.5 g/dL (12.0-16.0); Immature Granulocytes # (auto) 0.01 K/uL (0.00-0.02); Immature Granulocytes % (auto) 0.1 %; Lymphocytes # (auto) 0.76 K/uL (1.2-3.4); Lymphocytes % (auto) 10.6 %; Mean Corpuscular Hemoglobin 28.9 pg (25-34); Mean Corpuscular Hgb Conc 32.6 g/dL (32-36); Mean Corpuscular Volume 88.7 fL (80-100); Mean Platelet Volume 10.9 fL (7.4-10.4); Monocytes # (auto) 0.68 K/uL (0.11-0.59); Monocytes % (auto) 9.5 %; Neutrophils # (auto) 5.71 K/uL (1.4-6.5); Neutrophils % (auto) 79.4 %; Platelet Count 198 K/uL (130-400); RDW Coefficient of Variation 14.2 % (11.5-14.5); RDW Standard Deviation 46.6 fL (36.4-46.3); Red Blood Count 4.32 M/uL (4.2-5.4); White Blood Count 7.19 K/uL (4.8-10.8)
[2019-07-19] MEDS: LEVOTHYROXINE SODIUM 100 MCG TABLET PO SCH (06:02)
[2019-07-19 06:14] LABS: Prothrombin Time 35.3 Seconds (9.0-12.0)
[2019-07-19 06:19] LABS: INR 3.8 (0.9-1.1)
[2019-07-19 06:29] LABS: BUN Creatinine Ratio 19.1 (10-20); Creatinine Clr Calc Pharmacy 44.1 ml/min; Est GFR (African American) 66.6; Est GFR (Non-African American) 57.5; Potassium 3.4 mmol/L (3.5-5.1)
[2019-07-19] MEDS: CITALOPRAM 20 MG TAB PO SCH (07:46)
[2019-07-19] MEDS: LOSARTAN POTASSIUM 50 MG TAB PO SCH (07:47)
[2019-07-19] MEDS: PANTOprazole 40 MG TAB PO SCH (07:47)
[2019-07-19] MEDS: DOCUSATE SODIUM/SENNA 50/8.6MG TAB PO SCH ×2 (07:47→20:34)
[2019-07-19] MEDS: METOPROLOL SUCC 25MG EXT REL TAB PO SCH ×2 (07:47→20:33)
[2019-07-19] MEDS: FERROUS SULFATE 325 MG TAB PO SCH (07:48)
[2019-07-19] MEDS: ARTIFICIAL TEARS OP SCH ×2 (07:48→20:32)
[2019-07-19] MEDS: POTASSIUM CHLORIDE 10 MEQ TABCR PO SCH ×2 (07:48→20:32)
[2019-07-19] MEDS: FUROSEMIDE 20 MG TAB PO SCH (07:48)
[2019-07-19] MEDS ORDERED: METOPROLOL TARTRATE 1 MG/ML VIAL IV PRN (09:28)
--- NOTE | 2019-07-19 13:52 | Hospitalist Progress Note ---
Date of Service July 19, 2019 Assessment & Plan (1) Encephalopathy: Metabolic encephalopathy Multifactorial: In setting of infection, hypoxia, dementia CT head:No acute intracranial findings. Extensive white matter disease likely on a small vessel ischemic basis. 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 Bilateral pleural effusions. Suspected large hiatal sandra Continue IV Zosyn Day #2 Aspiration precautions Supplemental oxygen as needed Continue home diuretics Monitor volume status Sepsis Complicated UTI H/O multiple UTIs in the past H/O stress incontinence Continue Zosyn day#2 Blood Culture: No growth to date Urine culture: Preliminary--E.Coli Hypertensive urgency Likely situational Continue metoprolol, losartan Afib RVR In setting of sepsis INR slightly supratherapeutic Increase metoprolol 25mg BID IV Lopressor PRN Hold Coumadin today Monitor INR: 3.8 H/O CVA as per records Prediabetes Hb A1C: 5.9 Not on aspirin due to history of nosebleed DVT Px: INR supratherapeutic Resume Coumadin as able Code Status DNI/DNR No aggressive/heroic measures as per family Family prefers to consider comfort measures if no improvement clinically after 24 to 48 hrs Subjective Patient is seen and examined at bedside More alert and awake today States having feet discomfort Denies any chest pain, SOB, dizziness, abd pain Afib RVR on Monitor No family at bedside Review of Systems Review of Systems: All systems reviewed & are unremarkable except as noted in HPI & below Physical Exam Physical Exam: Physical Exam: Vitals signs as noted above General Appearance:Elderly, chronic ill appearing, no apparent distress Head: normocephalic, Atraumatic, Poor hearing Eyes: normal inspection, EOMI, Poor vision Neck: supple, Trachea midline Respiratory/Chest: Normal breath sounds, scattered rhonchi Cardiovascular: Irregularly irregular, No murmur, +Tachycardia Abdomen/GI:Soft, Non tender, Bowel sounds present Extremities/Musculoskelatal:normal inspection, B/L LE edema Neurologic/Psych:Oriented to person, place, grossly no focal deficits Skin: normal color, warm Results & Data Vital Signs (Past 12 Hours) Vital Signs Temp Pulse Pulse Resp BP BP Pulse Ox 11/10/19 13:20 116 H 18 94 11/10/19 12:00 99 H 07/19/19 11:23 36.9 C 93 H 17 155/97 H 96 07/19/19 07:02 102 H 18 94 07/19/19 06:52 36.8 C 113 H 22 158/96 H 96 07/19/19 03:53 36.6 C 98 H 19 138/82 95 Laboratory Results Short CBC 07/19/19 Range/Units 05:35 WBC 7.19 (4.8-10.8) K/uL Hgb 12.5 (12.0-16.0) g/dL Hct 38.3 (37-47) % Plt Count 198 (130-400) K/uL BMP 07/19/19 05:35 Sodium 139 Potassium 3.4 L Chloride 105 Carbon Dioxide 27 BUN 17 D Creatinine 0.89 Glucose 92 Calcium 9.0
[2019-07-19] MEDS: GABAPENTIN 100 MG CAP PO SCH ×2 (14:59→20:51)
[2019-07-20] MEDS: IPRATROPIUM BROMIDE NEB SOLN 0.02% 2.5 ML VIAL INH SCH ×3 (02:09→14:47)
[2019-07-20] MEDS: LEVALBUTEROL 1.25MG/0.5ML NEB INH SCH ×3 (02:10→14:47)
[2019-07-20] MEDS: PIPERACILLIN/TAZOBACTAM 3.375 GM in DEXTROSE 5% 100 ML IV SCH ×2 (04:05→11:43)
[2019-07-20] MEDS: LEVOTHYROXINE SODIUM 100 MCG TABLET PO SCH (05:37)
[2019-07-20 05:56] LABS: INR 2.8 (0.9-1.1); Prothrombin Time 26.6 Seconds (9.0-12.0)
[2019-07-20 06:25] LABS: BUN Creatinine Ratio 15.3 (10-20); Calcium 8.8 mg/dl (8.5-10.1); Creatinine Clr Calc Pharmacy 43.2 ml/min; Est GFR (African American) 64.8; Est GFR (Non-African American) 55.9; Potassium 3.9 mmol/L (3.5-5.1)
[2019-07-20] MEDS: ARTIFICIAL TEARS OP SCH ×2 (08:21→21:11)
[2019-07-20] MEDS: CITALOPRAM 20 MG TAB PO SCH (08:23)
[2019-07-20] MEDS: LOSARTAN POTASSIUM 50 MG TAB PO SCH (08:24)
[2019-07-20] MEDS: FERROUS SULFATE 325 MG TAB PO SCH (08:25)
[2019-07-20] MEDS: POTASSIUM CHLORIDE 10 MEQ TABCR PO SCH (08:27)
[2019-07-20] MEDS: FUROSEMIDE 20 MG TAB PO SCH (08:28)
[2019-07-20] MEDS: GABAPENTIN 100 MG CAP PO SCH ×3 (08:29→21:12)
[2019-07-20] MEDS: PANTOprazole 40 MG TAB PO SCH (08:30)
[2019-07-20] MEDS: DOCUSATE SODIUM/SENNA 50/8.6MG TAB PO SCH ×2 (08:31→21:12)
[2019-07-20] MEDS: METOPROLOL SUCC 25MG EXT REL TAB PO SCH ×2 (08:32→21:13)
[2019-07-20] MEDS ORDERED: CYANOCOBALAMIN 1000 MCG/ML VIAL IM SCH (09:00)
[2019-07-20] MEDS: LEVALBUTEROL 1.25MG/0.5ML NEB INH PRN ×2 (13:42→18:44)
[2019-07-20] MEDS ORDERED: AMLODIPINE BESYLATE 5 MG TAB PO ONE (16:21)
--- NOTE | 2019-07-20 16:45 | Hospitalist Progress Note ---
Date of Service July 20, 2019 Assessment & Plan (1) Encephalopathy: Metabolic encephalopathy Multifactorial: In setting of infection, hypoxia, dementia CT head:No acute intracranial findings. Extensive white matter disease likely on a small vessel ischemic basis. 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 Bilateral pleural effusions. Suspected large hiatal hernia Continue IV Zosyn Day #3 >> transition to ceftriaxone and Flagyl Aspiration precautions Saturating well on room air Continue home diuretics Monitor volume status Sepsis Complicated UTI H/O multiple UTIs in the past H/O stress incontinence Continue Zosyn day#3>>>Ceftriaxone Blood Culture: No growth to date Urine culture: E.Coli Hypertensive urgency Continue metoprolol, losartan Added Amlodipine for better BP control Afib RVR In setting of sepsis INR slightly supratherapeutic Increased metoprolol 25mg BID IV Lopressor PRN Resume Coumadin today Monitor INR: 2.8 H/O CVA as per records Prediabetes Hb A1C: 5.9 Not on aspirin due to history of nosebleed DVT Px: Coumadin Code Status DNI/DNR No aggressive/heroic measures as per family Family prefers to consider comfort measures if no improvement clinically after 24 to 48 hrs Subjective Patient is seen and examined at bedside Mental status seems to be back to baseline Admits to having productive cough intermittently Offers no other complaints Denies any chest pain, SOB, dizziness, nausea, abd pain Review of Systems Review of Systems: All systems reviewed & are unremarkable except as noted in HPI & below Physical Exam Physical Exam: Physical Exam: Vitals signs as noted above General Appearance:Elderly, chronic ill appearing, no apparent distress Head: normocephalic, Atraumatic, Poor hearing Eyes: normal inspection, EOMI, Poor vision Neck: supple, Trachea midline Respiratory/Chest: Normal breath sounds, CTA Cardiovascular: Irregularly irregular, No murmur Abdomen/GI:Soft, Non tender, Bowel sounds present Extremities/Musculoskelatal:normal inspection, B/L LE edema Neurologic/Psych:Oriented to person, place, grossly no focal deficits Skin: normal color, warm Results & Data Vital Signs (Past 12 Hours) Vital Signs Temp Pulse Pulse Resp BP Pulse Ox 07/20/19 15:16 36.5 C 90 20 161/105 H 96 07/20/19 13:42 93 H 16 97 07/20/19 11:17 36.7 C 79 21 152/89 H 94 07/20/19 08:00 36.6 C 85 12 154/103 H 94 07/20/19 07:05 78 18 95 Laboratory Results [facility] 07/20/19 05:35 Sodium 138 Potassium 3.9 Chloride 104 Carbon Dioxide 27 BUN 14 Creatinine 0.91 Glucose 89 Calcium 8.8
[2019-07-20] MEDS: WARFARIN SOD 1 MG TAB PO SCH (16:46)
[2019-07-20] MEDS: cefTRIAXone SODIUM 1,000 MG in DEXTROSE 5% 50 ML IV SCH (18:01)
[2019-07-20] MEDS: metroNIDAZOLE 250 MG TAB PO SCH (21:11)
[2019-07-21 05:44] LABS: Hematocrit (blood only) 41.2 % (37-47); Hemoglobin 13.5 g/dL (12.0-16.0); Mean Corpuscular Hemoglobin 29.3 pg (25-34); Mean Corpuscular Hgb Conc 32.8 g/dL (32-36); Mean Corpuscular Volume 89.4 fL (80-100); Mean Platelet Volume 10.8 fL (7.4-10.4); Platelet Count 210 K/uL (130-400); RDW Coefficient of Variation 14.1 % (11.5-14.5); RDW Standard Deviation 46.4 fL (36.4-46.3); Red Blood Count 4.61 M/uL (4.2-5.4)
[2019-07-21] MEDS: LEVOTHYROXINE SODIUM 100 MCG TABLET PO SCH (05:54)
[2019-07-21 06:24] LABS: Calcium 8.9 mg/dl (8.5-10.1); Est GFR (African American) 79.3; Est GFR (Non-African American) 68.5; Potassium 3.8 mmol/L (3.5-5.1)
[2019-07-21 06:39] LABS: INR 2.4 (0.9-1.1)
--- NOTE | 2019-07-21 07:48 | Hospitalist Progress Note ---
Date of Service July 21, 2019 Assessment & Plan (1) Encephalopathy: Metabolic encephalopathy Multifactorial: In setting of infection, hypoxia, dementia CT head:No acute intracranial findings. Extensive white matter disease likely on a small vessel ischemic basis. 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 Bilateral pleural effusions. Suspected large hiatal hernia Continue IV Zosyn Day #3 >> transition to ceftriaxone and Flagyl Day #1/2 Aspiration precautions Saturating well on room air Continue home diuretics Monitor volume status Sepsis Complicated UTI H/O multiple UTIs in the past H/O stress incontinence Continue Zosyn day#3>>>Ceftriaxone Day #1/2 Blood Culture: No growth to date Urine culture: E.Coli Patient may need chronic suppressive therapy and Urology evaluation as OP for recurrent UTIs Hypertensive urgency Continue metoprolol, losartan Metoprolol dose increased to 25mg BID Added Amlodipine for better BP control Afib RVR In setting of sepsis INR slightly supratherapeutic--Resolved Increased metoprolol 25mg BID IV Lopressor PRN Resumed Coumadin on 07/20/19 Monitor INR: 2.4 Continue Coumadin at lower dose while on flagyl Give 1mg Coumadin today H/O CVA as per records Prediabetes Hb A1C: 5.9 Not on aspirin due to history of nosebleed Ambulatory Dysfunction [place] PT/OT DVT Px: Coumadin Code Status DNI/DNR No aggressive/heroic measures as per family Plan to discharge back to [facility] when medically stable Subjective Patient is seen and examined at bedside Has Physical therapy earlier today Less cough today Dysuria improved Denies any chest pain, SOB, dizziness, nausea, abd pain Family at bedside Review of Systems Review of Systems: All systems reviewed & are unremarkable except as noted in HPI & below Physical Exam Physical Exam: Physical Exam: Vitals signs as noted above General Appearance:Elderly, chronic ill appearing, no apparent distress Head: normocephalic, Atraumatic, decreased hearing Eyes: normal inspection, EOMI Neck: supple, Trachea midline Respiratory/Chest: Normal breath sounds, CTA Cardiovascular: Irregularly irregular, No murmur Abdomen/GI:Soft, Non tender, Bowel sounds present Extremities/Musculoskelatal:normal inspection, B/L LE edema Neurologic/Psych:Oriented to person, place, grossly no focal deficits Skin: normal color, warm Results & Data Vital Signs (Past 12 Hours) Vital Signs Temp Pulse Pulse Resp BP Pulse Ox 07/21/19 07:08 36.4 C L 77 19 160/92 H 95 07/21/19 04:30 36.5 C 71 22 170/91 H 97 07/20/19 23:49 36.6 C 70 19 163/96 H 96 07/20/19 23:00 79 Laboratory Results Short CBC 07/21/19 Range/Units 05:33 WBC 4.70 L (4.8-10.8) K/uL Hgb 13.5 (12.0-16.0) g/dL Hct 41.2 (37-47) % Plt Count 210 (130-400) K/uL BMP 07/21/19 05:33 Sodium 137 Potassium 3.8 Chloride 104 Carbon Dioxide 27 BUN 11 Creatinine 0.77 Glucose 90 Calcium 8.9
[2019-07-21] MEDS: metroNIDAZOLE 250 MG TAB PO SCH ×3 (08:00→20:21)
[2019-07-21] MEDS: PANTOprazole 40 MG TAB PO SCH (08:00)
[2019-07-21] MEDS: LOSARTAN POTASSIUM 50 MG TAB PO SCH (08:00)
[2019-07-21] MEDS: AMLODIPINE BESYLATE 5 MG TAB PO SCH (08:00)
[2019-07-21] MEDS: METOPROLOL SUCC 25MG EXT REL TAB PO SCH ×2 (08:00→20:21)
[2019-07-21] MEDS: FERROUS SULFATE 325 MG TAB PO SCH (08:00)
[2019-07-21] MEDS: FUROSEMIDE 20 MG TAB PO SCH (08:01)
[2019-07-21] MEDS: GABAPENTIN 100 MG CAP PO SCH ×3 (08:01→20:21)
[2019-07-21] MEDS: DOCUSATE SODIUM/SENNA 50/8.6MG TAB PO SCH ×2 (08:01→20:21)
[2019-07-21] MEDS: CITALOPRAM 20 MG TAB PO SCH (08:01)
[2019-07-21] MEDS: ARTIFICIAL TEARS OP SCH ×2 (08:02→20:20)
[2019-07-21] MEDS: LEVALBUTEROL 1.25MG/0.5ML NEB INH PRN (08:23)
[2019-07-21] MEDS: WARFARIN SOD 1 MG TAB PO SCH (16:13)
[2019-07-21] MEDS: cefTRIAXone SODIUM 1,000 MG in DEXTROSE 5% 50 ML IV SCH (17:00)
[2019-07-22] MEDS: LEVOTHYROXINE SODIUM 100 MCG TABLET PO SCH (05:57)
[2019-07-22 06:49] LABS: INR 2.3 (0.9-1.1); Prothrombin Time 22.4 Seconds (9.0-12.0)
[2019-07-22] MEDS: FERROUS SULFATE 325 MG TAB PO SCH (08:31)
[2019-07-22] MEDS: CITALOPRAM 20 MG TAB PO SCH (08:31)
[2019-07-22] MEDS: DOCUSATE SODIUM/SENNA 50/8.6MG TAB PO SCH ×2 (08:31→21:00)
[2019-07-22] MEDS: METOPROLOL SUCC 25MG EXT REL TAB PO SCH ×2 (08:31→20:59)
[2019-07-22] MEDS: PANTOprazole 40 MG TAB PO SCH (08:31)
[2019-07-22] MEDS: LOSARTAN POTASSIUM 50 MG TAB PO SCH (08:31)
[2019-07-22] MEDS: FUROSEMIDE 20 MG TAB PO SCH (08:31)
[2019-07-22] MEDS: metroNIDAZOLE 250 MG TAB PO SCH ×2 (08:32→13:44)
[2019-07-22] MEDS: GABAPENTIN 100 MG CAP PO SCH ×3 (08:32→20:59)
[2019-07-22] MEDS: ARTIFICIAL TEARS OP SCH ×2 (08:32→21:00)
[2019-07-22] MEDS: AMLODIPINE BESYLATE 5 MG TAB PO SCH (08:32)
[2019-07-22] MEDS: ACETAMINOPHEN 325 MG TAB PO PRN (13:47)
[2019-07-22] MEDS: WARFARIN SOD 1 MG TAB PO SCH (16:14)
[2019-07-22] MEDS: cefTRIAXone SODIUM 1,000 MG in DEXTROSE 5% 50 ML IV SCH (17:13)
--- NOTE | 2019-07-22 19:15 | Hospitalist Progress Note ---
Date of Service July 22, 2019 Assessment & Plan (1) Severe sepsis: Met criteria for severe sepsis at time of admission per current [facility] criteria- fever, tachycardia, encephalopathy. Source- most likely UTI, although pneumonia considered. Serum lactate 1.5. Systolic BP's > 90. Blood cultures obtained. Received broad spectrum antibiotic coverage. (2) Urinary tract infection: History of recurrent UTIs. Urinalysis at time of admission showed 3+ blood, positive nitrites, positive leukocyte esterase, many WBCs, many RBCs, bacteria. CT did not show any apparent urinary tract obstruction. Urine culture grew E. coli, resistant to ampicillin and ampicillin/sulbactam, but sensitive to other antibiotics tested. Continue ceftriaxone. (3) Encephalopathy: More confused than baseline at time of admission. CT showed small vessel ischemic changes and old left occipital infarct, no acute findings. Probable metabolic encephalopathy / delirium due to sepsis. Improved. (4) Acute on chronic diastolic (congestive) heart failure: Admission chest x-ray demonstrated pulmonary edema. Echo 08/19/18 showed normal LV systolic function. Probable acute on chronic left ventricular diastolic heart failure. Received IV furosemide. Check f/u chest x-ray. (5) Atrial fibrillation: History of PAF, apparently now chronic. Presented with rapid ventricular response. Continue metoprolol for rate control. Continue anticoagulation with warfarin. (6) Hypertension: BP's fluctuate. Continue metoprolol, amlodipine, losartan. (7) Hypothyroidism: TSH 4.6 06/30/19. Continue levothyroxine. (8) Dementia: Monitor for delirium. (9) Do not resuscitate status: As documented in H&P. (10) DVT prophylaxis: Continue warfarin. (11) Discharge planning issues: Anticipated need for skilled care. Case Management following. Internal Medicine follow-up with Dr. Burks if able to eventually return to [facility]. Subjective Recheck for multiple problems. Patient seen in their room around 1050. Family visiting. Pleasantly confused. Overall, doing much better. Occasional cough. No chest pain or SOB. No nausea, vomiting, diarrhea. ? dysuria. Review of Systems: Not reliable because of pt's confusion. Physical Exam Constitutional: no acute distress Respiratory: no respiratory distress Auscultation: lungs clear to auscultation bilaterally Cardiovascular: Rate/Rhythm: + irregularly irregular Heart Sounds: no gallop and no cardiac rub Vessels: no JVD Extremities: + edema (1+ RLE); no calf tenderness Gastrointestinal (Abdomen): normal bowel sounds, soft, nontender, no hepatosplenomegaly Skin: no rashes, warm and dry Psychiatric: Orientation: alert; + not oriented x 3 Results & Data Vital Signs (Past 12 Hours) Vital Signs Temp Pulse Resp BP BP Pulse Ox 07/22/19 15:31 36.6 C 81 18 158/99 H 92 07/22/19 11:24 36.5 C 85 19 157/102 H 95 07/22/19 08:08 36.8 C 82 20 170/96 H 94 Laboratory Results 07/21/19 05:33 07/21/19 05:33
[2019-07-23] MEDS: LEVOTHYROXINE SODIUM 100 MCG TABLET PO SCH ×2 (05:53→06:08)
[2019-07-23 05:59] LABS: INR 2.5 (0.9-1.1); Prothrombin Time 24.2 Seconds (9.0-12.0)
[2019-07-23 06:29] LABS: BUN Creatinine Ratio 13.4 (10-20); Calcium 9.3 mg/dl (8.5-10.1); Est GFR (African American) 80.6; Est GFR (Non-African American) 69.5; Potassium 3.9 mmol/L (3.5-5.1)
--- NOTE | 2019-07-23 07:37 | XRay Report ---
XR chest 1V portable CLINICAL HISTORY: 89 years-old Female presenting with CHF. TECHNIQUE: Portable upright AP view of the chest was obtained. COMPARISON: 07/18/2019. FINDINGS: The patient is LUXEMBOURGER rotated. Atherosclerosis of the aortic arch. Cardiac silhouette enlarged. Moderate right and small left pleural effusions. These are increased from prior. Decreased aeration of the laura ng bases more severe on the right. Pulmonary vascular prominence and interstitial prominence remains. Increased prominence of the lewis likely vascular. Osteopenia. Degenerative changes of the spine. Julita pected large hiatal hernia. IMPRESSION: 1. Increasing bilateral pleural effusions with worsening aeration of the lung bases. 2. Persistent volume overload and congestive change in the setting of cardiomegaly. Underlying pulmo nary edema is not excluded. 3. Large hiatal hernia. Electronically signed by: Manuel Babin M.D. 07/23/2019 7:36 AM
[2019-07-23] MEDS: ARTIFICIAL TEARS OP SCH ×2 (09:26→20:24)
[2019-07-23] MEDS: CITALOPRAM 20 MG TAB PO SCH (09:26)
[2019-07-23] MEDS: GABAPENTIN 100 MG CAP PO SCH ×3 (09:27→21:14)
[2019-07-23] MEDS: FERROUS SULFATE 325 MG TAB PO SCH (09:27)
[2019-07-23] MEDS: LOSARTAN POTASSIUM 50 MG TAB PO SCH (09:27)
[2019-07-23] MEDS: FUROSEMIDE 20 MG TAB PO SCH (09:27)
[2019-07-23] MEDS: METOPROLOL SUCC 25MG EXT REL TAB PO SCH ×2 (09:28→21:15)
[2019-07-23] MEDS: PANTOprazole 40 MG TAB PO SCH (09:28)
[2019-07-23] MEDS: DOCUSATE SODIUM/SENNA 50/8.6MG TAB PO SCH ×2 (09:28→21:16)
[2019-07-23] MEDS: AMLODIPINE BESYLATE 5 MG TAB PO SCH (09:28)
[2019-07-23] MEDS: FUROSEMIDE 40 MG in SYRINGE 0 ML IV SCH ×2 (09:42→14:19)
[2019-07-23] MEDS: cefTRIAXone SODIUM 1,000 MG in DEXTROSE 5% 50 ML IV SCH (16:15)
[2019-07-23] MEDS: WARFARIN SOD 1 MG TAB PO SCH (16:16)
--- NOTE | 2019-07-23 20:10 | Hospitalist Progress Note ---
Date of Service July 23, 2019 Assessment & Plan (1) Severe sepsis: Met criteria for severe sepsis at time of admission per current [facility] criteria- fever, tachycardia, encephalopathy. Source- most likely UTI, although pneumonia considered. Serum lactate 1.5. Systolic BP's > 90. Blood cultures obtained. Received broad spectrum antibiotic coverage. (2) Urinary tract infection: History of recurrent UTIs. Urinalysis at time of admission showed 3+ blood, positive nitrites, positive leukocyte esterase, many WBCs, many RBCs, bacteria. CT did not show any apparent urinary tract obstruction. Urine culture grew E. coli, resistant to ampicillin and ampicillin/sulbactam, but sensitive to other antibiotics tested. Continue ceftriaxone. (3) Encephalopathy: More confused than baseline at time of admission. CT showed small vessel ischemic changes and old left occipital infarct, no acute findings. Probable metabolic encephalopathy / delirium due to sepsis. Improved. (4) Acute on chronic diastolic (congestive) heart failure: Admission chest x-ray demonstrated pulmonary edema. Echo 08/19/18 showed normal LV systolic function. Probable acute on chronic left ventricular diastolic heart failure. Received IV furosemide. Today's chest x-ray shows persistent CHF. Resume IV furosemide. (5) Atrial fibrillation: History of PAF, apparently now chronic. Presented with rapid ventricular response. Continue metoprolol for rate control. Continue anticoagulation with warfarin. (6) Hypertension: BP's fluctuating. Continue metoprolol, amlodipine, losartan. (7) Hypothyroidism: TSH 4.6 06/30/19. Continue levothyroxine. (8) Dementia: Monitor for delirium. (9) Pelvic mass: 5 cm left adnexal mass noted on CT. Suspected ovarian lesion. Discussed with daughter. No further evaluation or treatment in light of patient's advanced age and comorbidities. (10) Do not resuscitate status: As documented in H&P. (11) DVT prophylaxis: Continue warfarin. (12) Discharge planning issues: Anticipated need for skilled care. Case Management following. Internal Medicine follow-up with Dr. Burks if able to eventually return to [facility]. Subjective Recheck for multiple problems. Patient seen in their room around 1100. Family visiting. Pleasantly confused. Overall, doing much better. Occasional cough. Denies chest pain or SOB. No nausea, vomiting, diarrhea. Dysuria improved. Review of Systems: Not reliable because of pt's confusion. Physical Exam Constitutional: no acute distress Respiratory: no respiratory distress Auscultation: + rales (bibasilar) Cardiovascular: Rate/Rhythm: + irregularly irregular Heart Sounds: no gal lop and no cardiac rub Vessels: no JVD Extremities: + edema (1+ RLE); no calf tenderness Gastrointestinal (Abdomen): normal bowel sounds, soft, nontender, no hepatosplenomegaly Skin: no rashes, warm and dry Psychiatric: Orientation: alert; + not oriented x 3 Results & Data Vital Signs (Past 12 Hours) Vital Signs Temp Pulse Resp BP Pulse Ox 07/23/19 15:16 36.6 C 78 20 136/87 95 07/23/19 12:00 36.6 C 87 18 156/94 H 95 Laboratory Results 07/21/19 05:33 07/23/19 05:28 Microbiology 07/18/19 05:06 Blood Aerobic Blood Culture - Final No growth in Aerobic bottle after 5 days. 07/18/19 05:06 Blood Anaerobic Blood Culture - Final No growth in Anaerobic bottle after 5 days. 07/18/19 04:55 Blood Aerobic Blood Culture - Final No growth in Aerobic bottle after 5 days. 07/18/19 04:55 Blood Anaerobic Blood Culture - Final 07/18/19 04:15 Urine,Straight Cath Urine Culture - Final Escherichia coli Diagnostic Findings PORTABLE CHEST X-RAY IMPRESSION: 1. Increasing bilateral pleural effusions with worsening aeration of the lung bases. 2. Persistent volume overload and congestive change in the setting of cardiomegaly. Underlying pulmonary edema is not excluded. 3. Large hiatal hernia. Electronically signed by: Manuel Babin M.D. 07/23/2019 7:36 AM
[2019-07-24] MEDS: LEVOTHYROXINE SODIUM 100 MCG TABLET PO SCH (05:52)
[2019-07-24 06:02] LABS: Prothrombin Time 28.3 Seconds (9.0-12.0)
[2019-07-24 06:29] LABS: BUN Creatinine Ratio 13.4 (10-20); Calcium 9.1 mg/dl (8.5-10.1); Est GFR (Non-African American) 76.8; Potassium 3.3 mmol/L (3.5-5.1)
[2019-07-24] MEDS: CITALOPRAM 20 MG TAB PO SCH (07:49)
[2019-07-24] MEDS: METOPROLOL SUCC 25MG EXT REL TAB PO SCH ×2 (07:49→20:30)
[2019-07-24] MEDS: LOSARTAN POTASSIUM 50 MG TAB PO SCH (07:49)
[2019-07-24] MEDS: AMLODIPINE BESYLATE 5 MG TAB PO SCH (07:50)
[2019-07-24] MEDS: cephALEXin 250 MG CAP PO SCH ×4 (07:50→20:30)
[2019-07-24] MEDS: POTASSIUM CHLORIDE 20 MEQ TABCR PO SCH ×3 (07:50→20:30)
[2019-07-24] MEDS: ARTIFICIAL TEARS OP SCH ×2 (07:51→20:13)
[2019-07-24] MEDS: DOCUSATE SODIUM/SENNA 50/8.6MG TAB PO SCH ×2 (07:51→20:30)
[2019-07-24] MEDS: PANTOprazole 40 MG TAB PO SCH (07:51)
[2019-07-24] MEDS: GABAPENTIN 100 MG CAP PO SCH ×3 (07:51→20:31)
[2019-07-24] MEDS: FERROUS SULFATE 325 MG TAB PO SCH (12:15)
[2019-07-24] MEDS: WARFARIN SOD 1 MG TAB PO SCH (16:12)
[2019-07-24] MEDS: ACETAMINOPHEN 325 MG TAB PO PRN (16:13)
--- NOTE | 2019-07-24 17:51 | Hospitalist Progress Note ---
Date of Service July 24, 2019 Assessment & Plan (1) Severe sepsis: Met criteria for severe sepsis at time of admission per current [facility] criteria- fever, tachycardia, encephalopathy. Source- most likely UTI, although pneumonia considered. Serum lactate 1.5. Systolic BP's > 90. Blood cultures obtained. Received broad spectrum antibiotic coverage. (2) Urinary tract infection: History of recurrent UTIs. Urinalysis at time of admission showed 3+ blood, positive nitrites, positive leukocyte esterase, many WBCs, many RBCs, bacteria. CT did not show any apparent urinary tract obstruction. Urine culture grew E. coli, resistant to ampicillin and ampicillin/sulbactam, but sensitive to other antibiotics tested. Received ceftriaxone x 4 days; transition to oral therapy with cephalexin. (3) Encephalopathy: More confused than baseline at time of admission. CT showed small vessel ischemic changes and old left occipital infarct, no acute findings. Probable metabolic encephalopathy / delirium due to sepsis. Improved. (4) Acute on chronic diastolic (congestive) heart failure: Admission chest x-ray demonstrated pulmonary edema. Echo 08/19/18 showed normal LV systolic function. Probable acute on chronic left ventricular diastolic heart failure. Received IV furosemide. Yesterday's chest x-ray shows persistent CHF. Resumed IV furosemide- hold until hypokalemia corrected. (5) Atrial fibrillation: History of PAF, apparently now chronic. Presented with rapid ventricular response. Continue metoprolol for rate control. Continue anticoagulation with warfarin. (6) Hypertension: BP's fluctuating. Continue metoprolol, amlodipine, losartan. (7) Hypothyroidism: TSH 4.6 06/30/19. Continue levothyroxine. (8) Dementia: Monitor for delirium. (9) Pelvic mass: 5 cm left adnexal mass noted on CT. Suspected ovarian lesion. Discussed with daughter. No further evaluation or treatment in light of patient's advanced age and comorbidities. (10) Do not resuscitate status: As documented in H&P. (11) DVT prophylaxis: Continue warfarin. (12) Discharge planning issues: Anticipated need for skilled care. Case Management following. Internal Medicine follow-up with Dr. Burks if able to eventually return to [facility]. Subjective Recheck for multiple problems. Patient seen in their room around 1320. Family visiting. Pleasantly confused. Tires with minimal activity. Occasional cough. Denies chest pain or SOB. No nausea, vomiting, diarrhea. Dysuria improved. Review of Systems: Not reliable because of pt's confusion. Physical Exam Constitutional: no acute distress Respiratory: no respiratory distress Auscultation: + rales (bibasilar) Cardiovascular: Rate/Rhythm: + irregularly irregular Heart Sounds: no gallop and no cardiac rub Vessels: no JVD Extremities: + edema (trace pretibial); no calf tenderness Gastrointestinal (Abdomen): normal bowel sounds, soft, nontender, no hepatospl enomegaly Skin: no rashes, warm and dry Psychiatric: Orientation: alert; + not oriented x 3 Results & Data Vital Signs (Past 12 Hours) Vital Signs Temp Pulse Resp BP Pulse Ox 07/24/19 15:25 36.7 C 95 H 18 137/81 95 07/24/19 06:56 36.1 C L 78 17 142/83 H 92 Laboratory Results 07/21/19 05:33 07/24/19 05:32
[2019-07-25] MEDS: LEVOTHYROXINE SODIUM 100 MCG TABLET PO SCH (06:29)
[2019-07-25 06:57] LABS: BUN Creatinine Ratio 14.3 (10-20); Calcium 8.6 mg/dl (8.5-10.1); Creatinine Clr Calc Pharmacy 48.9 ml/min; Est GFR (African American) 84.6; Potassium 3.7 mmol/L (3.5-5.1)
[2019-07-25] MEDS: AMLODIPINE BESYLATE 5 MG TAB PO SCH (07:58)
[2019-07-25] MEDS: CITALOPRAM 20 MG TAB PO SCH (07:58)
[2019-07-25] MEDS: DOCUSATE SODIUM/SENNA 50/8.6MG TAB PO SCH ×2 (07:59→21:16)
[2019-07-25] MEDS: LOSARTAN POTASSIUM 50 MG TAB PO SCH (07:59)
[2019-07-25] MEDS: POTASSIUM CHLORIDE 20 MEQ TABCR PO SCH (08:00)
[2019-07-25] MEDS: GABAPENTIN 100 MG CAP PO SCH (08:00)
[2019-07-25] MEDS: METOPROLOL SUCC 25MG EXT REL TAB PO SCH ×2 (08:00→21:16)
[2019-07-25] MEDS: cephALEXin 250 MG CAP PO SCH (08:00)
[2019-07-25] MEDS: PANTOprazole 40 MG TAB PO SCH (08:00)
[2019-07-25] MEDS: ARTIFICIAL TEARS OP SCH ×2 (08:01→21:16)
--- NOTE | 2019-07-25 11:47 | Hospitalist Progress Note ---
Date of Service July 25, 2019 Assessment & Plan (1) Severe sepsis: Met criteria for severe sepsis at time of admission per current [facility] criteria- fever, tachycardia, encephalopathy. Source- most likely UTI, although pneumonia considered. Serum lactate 1.5. Systolic BP's > 90. Blood cultures obtained. Received broad spectrum antibiotic coverage. (2) Urinary tract infection: History of recurrent UTIs. Urinalysis at time of admission showed 3+ blood, positive nitrites, positive leukocyte esterase, many WBCs, many RBCs, bacteria. CT did not show any apparent urinary tract obstruction. Urine culture grew E. coli, resistant to ampicillin and ampicillin/sulbactam, but sensitive to other antibiotics tested. Received ceftriaxone x 4 days; transitioned to oral therapy with cephalexin. Will resume IV Rx with ceftriaxone in light of anorexia. (3) Encephalopathy: More confused than baseline at time of admission. CT showed small vessel ischemic changes and old left occipital infarct, no acute findings. Probable metabolic encephalopathy / delirium due to sepsis. Improved. (4) Acute on chronic diastolic (congestive) heart failure: Admission chest x-ray demonstrated pulmonary edema. Echo 08/19/18 showed normal LV systolic function. Probable acute on chronic left ventricular diastolic heart failure. Improved with diuresis. Titrate diuretics. (5) Atrial fibrillation: History of PAF, apparently now chronic. Presented with rapid ventricular response. Continue metoprolol for rate control. Continue anticoagulation with warfarin. (6) Hypertension: BP's fluctuating. Continue metoprolol, amlodipine, losartan. (7) Hypothyroidism: TSH 4.6 06/30/19. Continue levothyroxine. (8) Dementia: Monitor for delirium. (9) Pelvic mass: 5 cm left adnexal mass noted on CT. Suspected ovarian lesion. Discussed with daughter. No further evaluation or treatment in light of patient's advanced age and comorbidities. (10) Do not resuscitate status: As documented in H&P. (11) DVT prophylaxis: Continue warfarin. (12) Discharge planning issues: Anticipated need for skilled care. Family considering [facility] [place] because of proximity to home. Case Management following. Patient's health has been declining over the past year. Long-term prognosis is poor. Consider transition to palliative care, probably in NH setting. Subjective Recheck for multiple problems. Patient seen in their room around 1120. Family visiting. Pleasantly confused. Tired. Occasional cough. Denies chest pain or SOB. Anorexic. No nausea, vomiting, diarrhea. Dysuria improved. Review of Systems: Additional ROS not reliable because of pt's confusion. Physical Exam Constitutional: no acute distress Respiratory: no respiratory distress Auscultation: + rales (bibasilar) Cardiovascular: Rate/Rhythm: + irregularly irregular Heart Sounds: no gallop and no cardiac rub Vessels: no JVD Extremities: + edema (trace pretibial); no calf tenderness Gastrointestinal (Abdomen): normal bowel sounds, soft, nontender, no hepatospl enomegaly Skin: + rash (chronic venous stasis changes bilat lower extremities) Psychiatric: Orientation: alert; + not oriented x 3 Results & Data Vital Signs (Past 12 Hours) Vital Signs Temp Pulse Resp BP Pulse Ox 07/25/19 07:16 36.6 C 73 18 130/82 95 07/25/19 00:10 36.3 C L 73 18 105/67 93 Laboratory Results 07/21/19 05:33 07/25/19 05:28
[2019-07-25] MEDS ORDERED: FUROSEMIDE 40 MG in SYRINGE 0 ML IV ONE (12:15)
[2019-07-25] MEDS: cefTRIAXone SODIUM 1,000 MG in DEXTROSE 5% 50 ML IV SCH (12:21)
[2019-07-25] MEDS: WARFARIN SOD 1 MG TAB PO SCH (15:17)
[2019-07-25] MEDS: FERROUS SULFATE 325 MG TAB PO SCH (16:11)
[2019-07-26 06:15] LABS: INR 3.3 (0.9-1.1); Prothrombin Time 31.1 Seconds (9.0-12.0)
[2019-07-26] MEDS: LEVOTHYROXINE SODIUM 100 MCG TABLET PO SCH (06:46)
[2019-07-26 06:50] LABS: BUN Creatinine Ratio 13.6 (10-20); Calcium 9.1 mg/dl (8.5-10.1); Creatinine Clr Calc Pharmacy 54.1 ml/min; Est GFR (African American) 90.8; Est GFR (Non-African American) 78.3; Potassium 3.7 mmol/L (3.5-5.1)
[2019-07-26] MEDS: METOPROLOL SUCC 25MG EXT REL TAB PO SCH ×2 (08:06→20:28)
[2019-07-26] MEDS: CITALOPRAM 20 MG TAB PO SCH (08:07)
[2019-07-26] MEDS: AMLODIPINE BESYLATE 5 MG TAB PO SCH ×2 (08:07→20:28)
[2019-07-26] MEDS: PANTOprazole 40 MG TAB PO SCH (08:07)
[2019-07-26] MEDS: LOSARTAN POTASSIUM 50 MG TAB PO SCH ×3 (08:07→20:28)
[2019-07-26] MEDS: DOCUSATE SODIUM/SENNA 50/8.6MG TAB PO SCH ×2 (08:08→20:28)
[2019-07-26] MEDS: ARTIFICIAL TEARS OP SCH ×2 (08:08→20:28)
--- NOTE | 2019-07-26 08:41 | Hospitalist Progress Note ---
Date of Service July 26, 2019 Assessment & Plan (1) Severe sepsis: Met criteria for severe sepsis at time of admission per current [facility] criteria- fever, tachycardia, encephalopathy. Source- most likely UTI, although pneumonia considered. Serum lactate 1.5. Systolic BP's > 90. Blood cultures obtained. Received broad spectrum antibiotic coverage. (2) Urinary tract infection: History of recurrent UTIs. Urinalysis at time of admission showed 3+ blood, positive nitrites, positive leukocyte esterase, many WBCs, many RBCs, bacteria. CT did not show any apparent urinary tract obstruction. Urine culture grew E. coli, resistant to ampicillin and ampicillin/sulbactam, but sensitive to other antibiotics tested. Received ceftriaxone x 4 days; transitioned to oral therapy with cephalexin. Resumed IV Rx with ceftriaxone in light of anorexia. (3) Encephalopathy: More confused than baseline at time of admission. CT showed small vessel ischemic changes and old left occipital infarct, no acute findings. Probable metabolic encephalopathy / delirium due to sepsis. Improved. (4) Acute on chronic diastolic (congestive) heart failure: Admission chest x-ray demonstrated pulmonary edema. Echo 08/19/18 showed normal LV systolic function. Probable acute on chronic left ventricular diastolic heart failure. Improved with diuresis. Poor PO intake- need to be careful not to over-diurese. Even though last chest x-ray showed persistent CHF, best to treat based on exam / symptoms than radiographic appearance. Will change furosemide dosing to PRN. (5) Atrial fibrillation: History of PAF, apparently now chronic. Presented with rapid ventricular response. Continue metoprolol for rate control. Continue anticoagulation with warfarin. (6) Hypertension: BP's fluctuating, high this morning. Increase amlodipine to 5 mg BID. Continue metoprolol, losartan. (7) Hypothyroidism: TSH 4.6 06/30/19. Continue levothyroxine. (8) Dementia: Monitor for delirium. (9) Pelvic mass: 5 cm left adnexal mass noted on CT. Suspected ovarian lesion. Discussed with daughter. No further evaluation or treatment in light of patient's advanced age and c omorbidities. (10) Do not resuscitate status: As documented in H&P. (11) DVT prophylaxis: Continue warfarin. (12) Discharge planning issues: Anticipated need for skilled care. Family considering [facility] because of proximity to home. Case Management following. Patient's health has been declining over the past year. Long-term prognosis is poor. Consider transition to palliative care, probably in NH setting. Subjective Recheck for multiple problems. Patient seen in their room around 0750. Weak. Occasional cough. No chest pain or SOB. Anorexic. No nausea, vomiting, diarrhea. Review of Systems: Additional ROS not reliable because of pt's confusion. Physical Exam Constitutional: no acute distress Respiratory: no respiratory distress Auscultation: + rales (few bibasilar) Cardiovascular: Rate/Rhythm: + irregularly irregular Heart Sounds: no gallop and no cardiac rub Vessels: no JVD Extremities: + edema (trace pretibial); no calf tenderness Gastrointestinal (Abdomen): normal bowel sounds, soft, nontender, no hepatosplenomegaly Skin: no rashes, warm and dry + rash (chronic venous stasis changes bilat lower extremities) Psychiatric: Orientation: alert; + not oriented x 3 Results & Data Vital Signs (Past 12 Hours) Vital Signs Temp Pulse Resp BP BP Pulse Ox 07/26/19 07:08 36.6 C 87 18 190/105 H 181/114 H 96 07/25/19 23:29 36.5 C 81 18 157/79 H 97
[2019-07-26] MEDS: cefTRIAXone SODIUM 1,000 MG in DEXTROSE 5% 50 ML IV SCH (12:46)
[2019-07-27] MEDS: LEVOTHYROXINE SODIUM 100 MCG TABLET PO SCH (06:09)
[2019-07-27 06:15] LABS: INR 2.7 (0.9-1.1); Prothrombin Time 25.6 Seconds (9.0-12.0)
[2019-07-27] MEDS: ARTIFICIAL TEARS OP SCH ×2 (09:27→20:43)
[2019-07-27] MEDS: CITALOPRAM 20 MG TAB PO SCH (09:27)
[2019-07-27] MEDS: DOCUSATE SODIUM/SENNA 50/8.6MG TAB PO SCH ×2 (09:28→20:44)
[2019-07-27] MEDS: AMLODIPINE BESYLATE 5 MG TAB PO SCH ×2 (09:28→20:44)
[2019-07-27] MEDS: PANTOprazole 40 MG TAB PO SCH (09:28)
[2019-07-27] MEDS: LOSARTAN POTASSIUM 50 MG TAB PO SCH ×2 (09:28→20:45)
[2019-07-27] MEDS: METOPROLOL SUCC 25MG EXT REL TAB PO SCH ×2 (09:28→20:46)
--- NOTE | 2019-07-27 10:20 | Palliative Care Consultation ---
Date of Consultation July 27, 2019 Assessment & Plan (1) Goals of care, counseling/discussion: -89 year old female patient with PMH recurrent UTIs, diastolic dysfunction with EF 60-64%, PAF on Coumadin, history CVA, hypertension, PVD, dementia, and others, presented to the hospital from [facility] with decreased responsiveness. Patient found to have UTI, CT negative for urinary obstruction. CT head negative, confusion likely due to metabolic encephalopathy. Urine growing E. coli, resistant to ampicillin and ampicillin/sulbactam. Patient just moved into personal group home about two months prior, has been declining ever since per the family. Patient has been here several times now with recurrent UTI, weakness, poor PO intake, and generally deconditioning. Prior to living at [facility], she lived with her daughter Tigist and Kt. Tigist took care of her for about a year and a half until patient's care became too much. Since [facility], condition has deteriorated. Since being in the hospital now for 9 days, she has only been out of bed once, she is weak, not eating/drinking well, will be transitioning to SNF rather than [facility]. Patient has made comments about not wanting to continue to fight. Family meeting to be held to discuss goals of care, palliative care is consulted. -Met first this morning with patient, Tigist, and Kt. Patient awake and alert, daughter feeding her breakfast. Patient is awake and oriented to person and place, but really not able to participate in a whole lot of meaningful conversation. Patient mentioned several times about "how can I get out of here?" -Returned in afternoon for family meeting with patient's , Kt, daughter Tigist, two sons Darrion and Ty. -All are in agreement that patient "has had enough." They state she has been eating and drinking less for quite some time, she refuses to really do any sort of PT/OT and mostly just wants to be left alone. The family states they know patient just wants to be comfortable and allow nature to take its course. -We discussed what transitioning to comfort care would look like for this patient.Also discussed what they would like to happen if patient has another UTI/septic event: they stated they just want her to be kept comfortable at the [facility] and not transfer back to hospital. -POLST form completed: DNR, comfort measures only, abx with comfort as the goal, no artificial hydration/nutrition. Signed by patient's son Ty with patient's 's permission. -Plan is for patient to go to [facility], [facility] initially then transition to comfort care once skilled period is over. -Continue PO abx on discharge. -Patient's family requested that she be given a dose of lorazepam for anxiety prior to transferring to SNF tomorrow-- spoke with Dr. Shankar. -Updated case management: patient to be discharged tomorrow. -Please contact palliative care with any further needs. (2) Urinary tract infection: (3) Acute on chronic diastolic (congestive) heart failure: (4) Dementia: (5) Pelvic mass: (6) Generalized weakness: Supervising Physician Co-Signing Physician Notes Chart reviewed, patient seen and examined. Collaborated with ARNOL Gonzales PE: Patient arousable, no acute distress. HEENT: EOMI, mild [place] Respirations: Unlabored CV: Regular rate Abdomen: Not distended Neuro: Recognizes family, oriented to person and place Agree with above note, assessment and plan as per ARNOL Gonzaels-goals of care are for comfort care. History of Present Illness Reason for Consultation: Goals of care Requesting Physician: Dr. Farah Attending Physician: Papi Shankar MD History of Present Illness This 89 year old female patient with PMH recurrent UTIs, diastolic dysfunction with EF 60-64%, PAF on Coumadin, history CVA, hypertension, PVD, dementia, and others, presented to the hospital from [facility] with decreased responsiveness. Patient found to have UTI, CT negative for urinary obstruction. CT head negative, confusion likely due to metabolic encephalopathy. Urine growing E. coli, resistant to ampicillin and ampicillin/sulbactam. Patient just moved into personal group home about two months prior, has been declining ever since per the family. Patient has been here several times now with recurrent UTI, weakness, poor PO intake, and generally deconditioning. Prior to living at [facility], she lived with her daughter Tigist and Kt. Tigist took care of her for about a year and a half until patient's care became too much. Since moving into personal group home, condition has deteriorated. Since being in the hospital now for 9 days, she has only been out of bed once, she is weak, not eating/drinking well, will be transitioning to SNF rather than H. Patient has made comments about not wanting to continue to fight. Family meeting to be held to discuss goals of care, palliative care is consulted. Thank you kindly for this consult. Palliative care team will follow as needed. Allergies Allergy/AdvReac Type Severity Reaction Status Date / Time Cipro Allergy Unknown RASH,SEVERE Verified 03/14/18 21:16 HEADACHE ciprofloxacin Allergy Unknown RASH,SEVERE Verified 07/18/19 04:38 HEADACHE aspirin AdvReac Intermediate nose bleeds Verified 07/18/19 04:38 Sulfa (Sulfonamide AdvReac Unknown HEADACHE Verified 07/18/19 04:38 Antibiotics) WITH BACTRIM Home Medications Home Medications Medication Instructions Recorded Confirmed Type cholecalciferol (vitamin D3) 2,000 unit PO DAILY 08/18/18 07/18/19 History [Vitamin D3] cyanocobalamin (vitamin B-12) 1,000 mcg IM MONTHLY 08/18/18 07/18/19 History gabapentin 100 mg PO TID 08/18/18 07/18/19 History losartan 100 mg PO DAILY 08/18/18 07/18/19 History metoprolol succinate 25 mg PO DAILY 08/18/18 07/18/19 History omeprazole 20 mg PO QAM 08/18/18 07/18/19 History ferrous sulfate [iron] 325 mg PO DAILY 03/27/19 07/18/19 History levothyroxine 100 mcg PO QAM 03/27/19 07/18/19 History nitroglycerin [Nitrostat] 0.4 mg SUBLINGUAL DIRECTED PRN 03/27/19 07/18/19 History warfarin [Jantoven] 2 mg PO SUTUWETHFRSA 03/27/19 07/18/19 History citalopram 10 mg PO DAILY 06/30/19 07/18/19 History furosemide 20 mg PO QAM 06/30/19 07/18/19 History nystatin 1 applic TOPICAL BID 06/30/19 07/18/19 History sodium chloride 1,000 mg PO BID 06/30/19 07/18/19 History warfarin 1 mg PO MO 06/30/19 07/18/19 History sennosides-docusate sodium 1 tab-cap PO BID 07/07/19 07/18/19 History [Senna-S] acetaminophen 650 mg PO Q4H PRN 07/18/19 07/18/19 History artificial tears(hypromellose) 1 drp OPHTHALMIC (EYE) BID 07/18/19 07/18/19 History nitrofurantoin monohyd/m-cryst 100 mg PO BID 07/18/19 07/18/19 History Patient History Medical History (Updated 07/27/19 @ 15:05 by ARNOL Ramirez) Atrial fibrillation Chronic venous stasis (Chronic) Dementia Diastolic dysfunction (Chronic) Do not resuscitate status Female stress incontinence (Chronic) GERD (gastroesophageal reflux disease) (Chronic) Goals of care, counseling/discussion Hypertension Hypothyroidism (Chronic) Iron deficiency anemia (Chronic) Pelvic mass (Chronic) [facility] 07/20/19 5 cm cystic left adnexal mass, likely ovarian. No further evaluation given advanced age and comorbidities. Surgical History History of cystoscopy (Resolved) Family History Other Diabetes Hypertension Lung cancer Social History Preferred Language: Croatian Communication Ability: Impaired Communication Ability Comment: Unresponsive at this time. Wound Care Rn Required: No Beliefs That Will Affect Care: None marital status: Current Living Situation: Personal Care Facility Current Living Situation Comment: [facility] current occupational status: retired Other Information That Helps Us Care for You: No Feels Safe at Home: Yes Safety Concerns: Feels Safe At This Time Smoking Status: Never smoker Hx Alcohol Use: No Hx Substance Use: No Review of Systems Review of Systems: Full ROS difficult to obtain due to dementia and medication condition. Did deny pain or discomfort. Physical Exam Constitutional: + frail appearing (elderly); no acute distress ENMT: external ear and nose normal, oropharynx normal Respiratory: normal respiratory effort; no labored breathing Cardiovascular: Rate/Rhythm: regular rate and regular rhythm Gastrointestinal (Abdomen): Inspection/Auscultation: normal bowel sounds Percussion/Palpation: abdomen soft; abdomen nontender Neurologic: moves all extremities and awake Psychiatric: Orientation: alert, oriented to person and oriented to place; + not oriented to time Results & Data Vital Signs (Past 12 Hours) Vital Signs Temp Pulse Resp BP Pulse Ox 07/27/19 07:36 36.8 C 81 18 131/74 96 07/26/19 22:57 36.4 C L 78 22 142/91 H 95 PG Care Time/CCT Prolonged Care Time Prolonged Care Time: Yes Total Prolonged Care Time: 100 Time Spent Midlevel 100 minutes with >50% of time spent at bedside with patient and family discussing condition and GOC.
[2019-07-27] MEDS: cefTRIAXone SODIUM 1,000 MG in DEXTROSE 5% 50 ML IV SCH (12:24)
[2019-07-27] MEDS: ACETAMINOPHEN 325 MG TAB PO PRN (14:17)
[2019-07-27] MEDS ORDERED: WARFARIN SOD 0.5 MG TAB PO SCH (16:00)
--- NOTE | 2019-07-27 18:26 | Hospitalist Progress Note ---
Date of Service July 27, 2019 Assessment & Plan (1) Severe sepsis: Met criteria for severe sepsis at time of admission per current [facility] criteria- fever, tachycardia, encephalopathy. Source- most likely UTI, although pneumonia considered. Serum lactate 1.5. Systolic BP's > 90. Blood cultures obtained. Received broad spectrum antibiotic coverage. (2) Urinary tract infection: History of recurrent UTIs. Urinalysis at time of admission showed 3+ blood, positive nitrites, positive leukocyte esterase, many WBCs, many RBCs, bacteria. CT did not show any apparent urinary tract obstruction. Urine culture grew E. coli, resistant to ampicillin and ampicillin/sulbactam, but sensitive to other antibiotics tested. Received ceftriaxone x 5 days; transitioned to oral therapy with cephalexin. Resumed IV Rx with ceftriaxone in light of anorexia. (3) Encephalopathy: More confused than baseline at time of admission. CT showed small vessel ischemic changes and old left occipital infarct, no acute findings. Probable metabolic encephalopathy / delirium due to sepsis. Improved. (4) Acute on chronic diastolic (congestive) heart failure: Admission chest x-ray demonstrated pulmonary edema. Echo 08/19/18 showed normal LV systolic function. Probable acute on chronic left ventricular diastolic heart failure. Improved with diuresis. Poor PO intake- need to be careful not to over-diurese. Even though last chest x-ray showed persistent CHF, best to treat based on exam / symptoms than radiographic appearance. Will change furosemide dosing to PRN. (5) Atrial fibrillation: History of PAF, apparently now chronic. Presented with rapid ventricular response. Continue metoprolol for rate control. Continue anticoagulation with warfarin. (6) Hypertension: BP's fluctuating, high this morning. Increase amlodipine to 5 mg BID. Continue metoprolol, losartan. (7) Hypothyroidism: TSH 4.6 06/30/19. Continue levothyroxine. (8) Dementia: Monitor for delirium. (9) Pelvic mass: 5 cm left adnexal mass noted on CT. Suspected ovarian lesion. Discussed with daughter. No further evaluation or treatment in light of patient's advanced age and c omorbidities. (10) Do not resuscitate status: As documented in H&P. (11) DVT prophylaxis: Continue warfarin. (12) Discharge planning issues: Anticipated need for skilled care. Family considering [place] because of proximity to home. Case Management following. Patient's health has been declining over the past year. Long-term prognosis is poor. Consider transition to palliative care, probably in NH setting. Subjective Pt was seen and examined Lying in bed with no distress with family at bedside Poor appetite as per family Family met with palliative care today Denies any chest pain and SOB Physical Exam Physical Exam: General- No acute distress Head- atraumatic Eyes- PERRL, EOMI, ENT- oropharynx clear Neck- supple, no JVD Lungs- diminished BS Heart- regular rhythm; no murmur Abdomen- normal bowel sounds, soft, nontender Extremities- no calf tenderness Neuro- alert, oriented, PERRL, EOMI; no facial palsy; no dysarthria Results & Data Vital Signs (Past 12 Hours) Vital Signs Temp Pulse Resp BP Pulse Ox 07/27/19 15:36 36.9 C 82 20 157/92 H 92 07/27/19 07:36 36.8 C 81 18 131/74 96
[2019-07-28] MEDS: LEVOTHYROXINE SODIUM 100 MCG TABLET PO SCH (05:52)
[2019-07-28 07:09] LABS: INR 2.5 (0.9-1.1)
[2019-07-28] MEDS: CITALOPRAM 20 MG TAB PO SCH (09:17)
[2019-07-28] MEDS: LOSARTAN POTASSIUM 50 MG TAB PO SCH (09:18)
[2019-07-28] MEDS: AMLODIPINE BESYLATE 5 MG TAB PO SCH (09:18)
[2019-07-28] MEDS: PANTOprazole 40 MG TAB PO SCH (09:18)
[2019-07-28] MEDS: DOCUSATE SODIUM/SENNA 50/8.6MG TAB PO SCH (09:19)
[2019-07-28] MEDS: METOPROLOL SUCC 25MG EXT REL TAB PO SCH (09:19)
[2019-07-28] MEDS: ARTIFICIAL TEARS OP SCH (09:35)
--- NOTE | 2019-07-28 12:48 | Hospitalist Progress Note ---
Date of Service July 28, 2019 Assessment & Plan (1) Severe sepsis: Met criteria for severe sepsis at time of admission per current [facility] criteria- fever, tachycardia, encephalopathy. Source- most likely UTI, although pneumonia considered. Serum lactate 1.5. Systolic BP's > 90 on admission Blood cultures no growth Received broad spectrum antibiotic coverage. (2) Urinary tract infection: History of recurrent UTIs. Urinalysis at time of admission showed 3+ blood, positive nitrites, positive leukocyte esterase, many WBCs, many RBCs, bacteria. CT did not show any apparent urinary tract obstruction. Urine culture grew E. coli, resistant to ampicillin and ampicillin/sulbactam, but sensitive to other antibiotics tested. Received ceftriaxone x 5 days; transitioned to oral cephalexin on discharge (3) Encephalopathy: Mostly related to delirium due to UTI/Sepsis CT showed small vessel ischemic changes and old left occipital infarct, no acute findings. Clinically improves (4) Acute on chronic diastolic (congestive) heart failure: Chest xray showed increasing bilateral pleural effusions with worsening aeration of the lung bases. volume overload and congestive change in the setting of cardiomegaly. Echo 08/19/18 showed normal LV systolic function. Improved with diuresis. Poor PO intake- need to be careful not to over-diurese. Even though last chest x-ray showed persistent CHF, best to treat based on exam / symptoms than radiographic appearance. Will change furosemide dosing 3xweekly and PRN (5) Atrial fibrillation: Presented with rapid ventricular response. Rate control with metoprolol Continue anticoagulation with warfarin. INR 2.5 today (6) Hypertension: BP's fluctuating. Continue amlodipine 5 mg BID. Continue metoprolol, losartan. Continue monitor BP (7) Hypothyroidism: TSH 4.6 06/30/19. Continue levothyroxine. (8) Dementia: Monitor for delirium. Keep her room bright during the day (9) Pelvic mass: 5 cm left adnexal mass noted on CT. Suspected ovarian lesion. Previous hospitalist team discussed with daughter. No further evaluation or treatment in light of patient's advanced age and comorbidities. (10) Do not resuscitate status: DNR (11) DVT prophylaxis: Continue warfarin, INR 2.5 (12) Discharge planning issues: Discharge to [facility] today . Long-term prognosis is poor. Transition to palliative care once discharge to [place] setting. Fall precaution Subjective Pt was seen and examined Lying in bed with no distress Daughter is feeding her lunch She is more awake today Denies any chest pain, palpitation, dizziness and SOB Physical Exam Physical Exam: General- No acute distress Head- atraumatic Eyes- PERRL, EOMI, ENT- oropharynx clear Neck- supple, no JVD Lungs- Poor air entry Heart- regular rhythm; no murmur Abdomen- normal bowel sounds, soft, nontender Extremities- no calf tenderness Neuro- alert, oriented, PERRL, EOMI; no facial palsy; no dysarthria Results & Data Vital Signs (Past 12 Hours) Vital Signs Temp Pulse Resp BP BP Pulse Ox 07/28/19 11:57 36.6 C 85 16 169/108 H 98 07/28/19 07:00 36.6 C 74 17 135/87 95
[2019-07-28] MEDS: cefTRIAXone SODIUM 1,000 MG in DEXTROSE 5% 50 ML IV SCH (13:16)
[2019-07-28] MEDS ORDERED: LORazepam 0.25 MG/0.5 ML VIAL IV STA (13:19)
--- NOTE | 2019-07-28 13:26 | Palliative Care Progress Note ---
Date of Service July 28, 2019 Assessment & Plan (1) Goals of care, counseling/discussion: -Patient awake and alert. Pleasantly confused. Daughter and at bedside. -Will order lorazepam 0.25mg IV x1 dose prior to discharge at family's request-- patient gets extremely anxious with transfers and moving. -POLST form completed yesterday 07.27-- DNR, PELT INSPECTOR, abx for comfort, no artificial hydration/nutrition. -Plan is to transition to comfort/hospice care at SNF after skilled stay. -Will sign off, call with any further needs. (2) Urinary tract infection: (3) Acute on chronic diastolic (congestive) heart failure: (4) Dementia: (5) Pelvic mass: (6) Generalized weakness: Subjective Patient awake and alert. Pleasantly confused. Daughter and at bedside. Review of Systems Review of Systems: Full ROS difficult to obtain due to dementia and medication condition. Did deny pain or discomfort. Physical Exam Constitutional: + frail appearing (elderly); no acute distress ENMT: external ear and nose normal, oropharynx normal Respiratory: normal respiratory effort; no labored breathing Cardiovascular: Rate/Rhythm: regular rate and regular rhythm Neurologic: moves all extremities and awake Psychiatric: Orientation: alert, oriented to person and oriented to place; + not oriented to time Results & Data Vital Signs (Past 12 Hours) Vital Signs Temp Pulse Resp BP BP Pulse Ox 07/28/19 11:57 36.6 C 85 16 169/108 H 98 07/28/19 07:00 36.6 C 74 17 135/87 95 Time Spent Midlevel 25 minutes with >50% of the time spent at bedside with patient and family discussing plan of care.
[2019-07-28] MEDS ORDERED: LORazepam 0.5 MG TAB PO STA (13:55)
[2019-07-29] MEDS ORDERED: cephALEXin 500 MG CAP PO SCH (09:00)
--- NOTE | 2019-07-29 09:04 | Discharge Summary ---
Date of Service July 28, 2019 Admission HPI Per Admitting Provider History obtained from family, and records. Limited history from patient secondary to decreased responsiveness. Medical history significant for diastolic dysfunction (EF 60 to 64%, TTE 2018), PAF on Coumadin, history CVA, hypertension, history PVD as per records, recurrent UTIs, history of stress incontinence as per records, possible dementia as per family. Recent confinement April 2019 for ambulatory dysfunction, E. coli UTI. Few days ago, patient's urine noted to be malodorous at personal alf. UA was noted to be abnormal. Antibiotic prescription was supposed to be started this weekend as per daughter. Last night, patient noted to be weak, a little more confused than usual as per patient's daughter. Patient complaining of headache, cough/congestion symptoms. Patient noted to cough with meals and water intake if not careful. Patient later noted to have gurgling respiratory distress. O2 sats 80s at [facility]. IV Solu-Medrol administered by EMS. Patient received Zosyn at the ER for sepsis. Labetalol given for uncontrolled blood pressure at the ER and rapid A. fib. Lasix given for pulmonary congestion. 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 Admission Exam Per Admitting Provider GENERAL: Obtunded, hard of hearing, no respiratory distress SKIN: Normal color, warm HEENT: [place] palpebral conjunctivae, no ptosis, dry buccal mucosa, O2 mask in place NECK : supple, no tenderness CHEST : Bilateral rhonchi, expiratory wheezes , no tenderness HEART : Tachycardic, irregular, no obvious murmurs ABDOMEN: Some distention, nontender EXTREMITIES : Chronic bilateral LE venous stasis, no LE tenderness NEUROLOGIC : Obtunded, eyes closed, mid dilated pupils, no facial asymmetry, no other gross focality Principal Diagnosis Severe sepsis Urinary tract infection Encephalopathy Acute on chronic diastolic (congestive) heart failure: Atrial fibrillation Hypertension Hypothyroidism Dementia Pelvic mass Discharge Exam General- No acute distress Head- atraumatic Eyes- PERRL, EOMI, ENT- oropharynx clear Neck- supple, no JVD Lungs- Poor air entry Heart- regular rhythm; no murmur Abdomen- normal bowel sounds, soft, nontender Extremities- no calf tenderness Neuro- alert, oriented, PERRL, EOMI; no facial palsy; no dysarthria Discharge Data Allergies Allergy/AdvReac Type Severity Reaction Status Date / Time Cipro Allergy Unknown RASH,SEVERE Verified 03/14/18 21:16 HEADACHE ciprofloxacin Allergy Unknown RASH,SEVERE Verified 07/18/19 04:38 HEADACHE aspirin AdvReac Intermediate nose bleeds Verified 07/18/19 04:38 Sulfa (Sulfonamide AdvReac Unknown HEADACHE Verified 07/18/19 04:38 Antibiotics) WITH BACTRIM Consultations 07/27/19 08:00 Consult Palliative Care Routine Ordered Studies 07/18/19 07:10 CT head/brain wo con Urgent 07/18/19 08:11 CT abd pelvis wo con Urgent XR chest 1V portable CLINICAL HISTORY: Dyspnea COMPARISON STUDY: 07/07/2019 FINDINGS: The heart is enlarged. There is a retrocardiac opacity consistent with a hiatal hernia. There is persistent but improving pulmonary edema. There are bilateral pleural effusions right greater than left. There is no lobar consolidation[ IMPRESSION: 1. Persistent but improving pulmonary edema 2. Bilateral pleural effusions 3. Suspected large hiatal hernia Electronically signed by: Efrain Velazco M.D. 07/18/2019 7:00 AM Dictated: 07/18/19658 Transcribed: 07/18/19658 CT head/brain wo con CLINICAL HISTORY: Headache. Acute change in mental status. COMPARISON STUDY: 07/07/2019 TECHNIQUE: Axial CT of the brain is performed from the vertex to the skull base. IV contrast was not administered for this examination. A dose lowering technique was utilized adhering to the principles of ALARA. CT DOSE: FINDINGS: No intra or extra-axial mass lesions are visualized. There is no CT evidence of acute cortical infarction. There is no evidence of midline shift. There is no acute hemorrhage. No calvarial fractures are visualized. There are moderately severe white matter hypodensities likely on a small vessel basis. 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 There is mild ventricular dilatation, finding which is felt to be secondary to volume loss. There is no evidence of acute sinusitis IMPRESSION: 1. No acute intracranial findings 2. Extensive white matter disease likely on a small vessel ischemic basis. 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 07/18/2019 9:18 AM Dictated: 07/18/19905 Transcribed: 07/18/19908 CT SCAN OF THE ABDOMEN AND PELVIS WITHOUT CONTRAST CLINICAL HISTORY: Recurrent urinary tract infections. CHANGE IN MENTAL STATUS. POSSIBLE SEPSIS. COMPARISON STUDY: October 2010 TECHNIQUE: CT scan of the abdomen and pelvis was performed from the lung bases to the proximal femurs. Images are reviewed in the axial, sagittal, and coronal planes. IV contrast was not administered for this examination. A dose lowering technique was utilized adhering to the principles of ALARA. CT DOSE: 1410.27 mGy.cm FINDINGS: Lower chest: There is a large hiatal hernia. There are bilateral pleural effusions with associated lower lobe airspace opacities, likely atelectatic. There are coronary artery calcifications. Liver: The unenhanced liver is normal in size, contour, and attenuation. There is no intrahepatic biliary ductal dilatation. Gallbladder: Contracted Spleen: Normal in size and attenuation. Pancreas: Unremarkable. Adrenal glands: Unremarkable. Kidneys: There is a 26 mm exophytic left renal lesion. Despite exceeding water attenuation, this likely represents a cyst, there is a hyperdense 7 mm mid pole left renal lesion, likely representing a hyperdense renal cyst. There is no hydronephrosis. No renal, ureteral, or bladder calculi are visualized. Bowel: There are no transition zones to indicate bowel obstruction. There is no evidence of acute diverticulitis. The appendix is not visualized with certainty. There are no findings to indicate acute appendicitis. Peritoneum: There is no free intraperitoneal air. There is no cyst navicular ascites. There is mild presacral soft tissue thickening. Vasculature: The abdominal aorta is normal in course and caliber. Adenopathy: None. Pelvic viscera: The uterus is surgically absent. There is a 5 cm cystic left adnexal lesion, likely ovarian. This measured 35 mm in October 2010. There is minimal bladder wall thickening, and minimal infiltration of perivesical fat. Correlation with urinalysis is recommended to exclude a cystitis. Skeletal structures: No destructive osseous lesions are seen. The study is compromised due to motion artifact. IMPRESSION: 1. Motion degraded study 2. Large hiatal hernia 3. Moderate right pleural effusion and small left pleural effusion with associated basilar opacities likely atelectatic 4. No evidence of bowel obstruction. No evidence of free air 5. Left renal lesions statistically representing cysts. No renal, ureteral, or bladder calculi identified 6. Enlarging 5 cm cystic left adnexal lesion likely ovarian 7. No evidence of acute appendicitis. No evidence of acute diverticulitis 8. Minimal bladder wall thickening and infiltration of perivesical fat. Correlation with urinalysis is recommended to exclude cystitis Electronically signed by: Efrain Velazco M.D. 07/18/2019 9:18 AM Dictated: 07/18/1909 Transcribed: 07/18/19916 XR chest 1V portable CLINICAL HISTORY: 89 years-old Female presenting with CHF. TECHNIQUE: Portable upright AP view of the chest was obtained. COMPARISON: 07/18/2019. FINDINGS: The patient is TAJIK rotated. Atherosclerosis of the aortic arch. Cardiac silhouette enlarged. Moderate right and small left pleural effusions. These are increased from prior. Decreased aeration of the lung bases more severe on the right. Pulmonary vascular prominence and interstitial prominence remains. Increased prominence of the lewis likely vascular. Osteopenia. Degenerative changes of the spine. Suspected large hiatal hernia. IMPRESSION: 1. Increasing bilateral pleural effusions with worsening aeration of the lung bases. 2. Persistent volume overload and congestive change in the setting of cardiomegaly. Underlying pulmonary edema is not excluded. 3. Large hiatal hernia. Electronically signed by: Manuel Babin M.D. 07/23/2019 7:36 AM Dictated: 07/23/19 0734 Transcribed: 07/23/19733 Hospital Course (1) Severe sepsis: Met criteria for severe sepsis at time of admission per current CMS criteria- fever, tachycardia, encephalopathy. Source- most likely UTI, although pneumonia considered. Serum lactate 1.5. Systolic BP's > 90 on admission Blood cultures no growth Received broad spectrum antibiotic coverage. (2) Urinary tract infection: History of recurrent UTIs. Urinalysis at time of admission showed 3+ blood, positive nitrites, positive leukocyte esterase, many WBCs, many RBCs, bacteria. CT did not show any apparent urinary tract obstruction. Urine culture grew E. coli, resistant to ampicillin and ampicillin/sulbactam, but sensitive to other antibiotics tested. Received ceftriaxone x 5 days; transitioned to oral cephalexin on discharge (3) Encephalopathy: Mostly related to delirium due to UTI/Sepsis CT showed small vessel ischemic changes and old left occipital infarct, no acute findings. Clinically improves (4) Acute on chronic diastolic (congestive) heart failure: Chest xray showed increasing bilateral pleural effusions with worsening aeration of the lung bases. volume overload and congestive change in the setting of cardiomegaly. Echo 08/19/18 showed normal LV systolic function. Improved with diuresis. Poor PO intake- need to be careful not to over-diurese. Even though last chest x-ray showed persistent CHF, best to treat based on exam / symptoms than radiographic appearance. Will change furosemide dosing 3xweekly and PRN (5) Atrial fibrillation: Presented with rapid ventricular response. Rate control with metoprolol Continue anticoagulation with warfarin. INR 2.5 today (6) Hypertension: BP's fluctuating. Continue amlodipine 5 mg BID. Continue metoprolol, losartan. Continue monitor BP (7) Hypothyroidism: TSH 4.6 06/30/19. Continue levothyroxine. (8) Dementia: Monitor for delirium. Keep her room bright during the day (9) Pelvic mass: 5 cm left adnexal mass noted on CT. Suspected ovarian lesion. Previous hospitalist team discussed with daughter. No further evaluation or treatment in light of patient's advanced age and comorbidities. (10) Do not resuscitate status: DNR (11) DVT prophylaxis: Continue warfarin, INR 2.5 (12) Discharge planning issues: Discharge to [facility] today . Long-term prognosis is poor. Transition to palliative care once discharge to [place] setting. Fall precaution Total Time Total Time Spent Total Time Spent (In Minutes): 35 minutes Total Time Includes: Examination of the Patient, Discharge Planning, Medication Reconciliation, Communication With Other Providers and Other Discharge Plan Discharge Items Patient Disposition: Transfer Long-Term Fac Reason For Visit: rapid af, sepsis Discharge Diagnosis: Severe sepsis Urinary tract infection Encephalopathy Acute on chronic diastolic (congestive) heart failure: Atrial fibrillation Hypertension Hypothyroidism Dementia Pelvic mass Activity: Resume your previous activity Activity Comment: As tolerated Non-emergency contact: Primary Care Provider Call non-emergency contact if: you have any medication questions Follow-up/Referrals: GWYN Servin [Primary Care Provider] - Diet: Heart Healthy Diet Texture: Dental soft (bite-sized) Addtl Attending Provider Instructions: Follow up with your primary care provider at [facility] Follow up with palliative care team (Consider to transition to palliative care ) Continue physical and occupational therapy Check PT/INR (INR 2.5 today) Fall precaution Provide assistance with feeding Aspiration precaution Pending Studies at Discharge: No Stand-Alone Forms: My [facility] Skilled Items Patient informed of condition?: Yes DNR: Yes Discharge Level of Care: Skilled Communicable Disease: No Discharge Prognosis: Stable Lines: None Urinary Catheter: No Medications and DC Order Prescriptions: New amlodipine [Norvasc] 5 mg Tablet 5 mg PO BID 30 Days Qty: 60 RF: 0 levalbuterol HCl 1.25 mg/0.5 mL Solution For Nebulization 1.25 mg inhalation Q4H PRN (Reason: SOB) 30 Days Qty: 30 RF: 0 cephalexin 500 mg Capsule 500 mg PO BID 2 Days Qty: 4 RF: 0 Continued omeprazole 20 mg Capsule,Delayed Release(Dr/Ec) 20 mg PO QAM RF: 0 cholecalciferol (vitamin D3) [Vitamin D3] 2,000 unit Capsule 2,000 unit PO DAILY RF: 0 cyanocobalamin (vitamin B-12) 1,000 mcg/mL Kit 1,000 mcg IM MONTHLY RF: 0 citalopram 10 mg tablet 10 mg PO DAILY RF: 0 nystatin 100,000 unit/gram powder 1 applic topical BID RF: 0 acetaminophen 325 mg Tablet 650 mg PO Q4H PRN (Reason: pain/fever) RF: 0 artificial tears(hypromellose) 0.5 % Drops 1 drp OPHTHALMIC (EYE) BID RF: 0 levothyroxine 100 mcg tablet 100 mcg PO QAM RF: 0 ferrous sulfate [iron] 325 mg (65 mg iron) Tablet 325 mg PO DAILY RF: 0 nitroglycerin [Nitrostat] 0.4 mg Tablet, Sublingual 0.4 mg sublingual DIRECTED PRN (Reason: Chest Pain) RF: 0 sennosides-docusate sodium [Senna-S] 8.6-50 mg Tablet 1 tab-cap PO BID RF: 0 Changed losartan 50 mg Tablet 50 mg PO BID 30 Days Qty: 60 RF: 0 furosemide 20 mg tablet 20 mg PO 3XWK Qty: 30 RF: 0 metoprolol succinate 25 mg Tablet Extended Release 24 Hr 25 mg PO BID 30 Days Qty: 60 RF: 0 warfarin 1 mg tablet 0.5 mg PO DAILY 30 Days Qty: 30 RF: 0 Discontinued gabapentin 100 mg Capsule 100 mg PO TID RF: 0 sodium chloride 1,000 mg Tablet,Soluble 1,000 mg PO BID RF: 0 nitrofurantoin monohyd/m-cryst 100 mg Capsule 100 mg PO BID RF: 0 warfarin [Jantoven] 2 mg tablet 2 mg PO SUTUWETHFRSA RF: 0 Discharge Orders: Discharge Order (Routine); Ordered 07/28/19 Ordered By: Papi Shankar Admission Data Admit Date/Time: 07/18/19 07:14 Attending Provider: Papi Shankar Admit Provider: Yosi Jay [facility] Other Providers: Reilly Espino ; Matthew Christie at [place] ; Kat Stanley ; Luis Eduardo Farah Other Interventions: Discharge Summary Assessment (RN) Last Done: 07/28/19 14:06 DC Date/Time DO NOT enter until pt leaves facility: 07/28/19 15:02
== END 2019-07-28 15:02 | DRG 871 ==
LOC: ED 04:05 → 2E 07:14 → SUATTDRO 07:14 → 2E 09:01 → 4W 07-22 12:57

== ENCOUNTER 2019-11-17 13:46 | Inpatient (IN) ==
[2019-11-17 14:56] LABS: Basophils # (auto) 0.02 K/uL (0-0.2); Basophils % (auto) 0.3 %; Eosinophils # (auto) 0.06 K/uL (0-0.5); Eosinophils % (auto) 0.8 %; Hematocrit (blood only) 45.7 % (37-47); Hemoglobin 15.3 g/dL (12.0-16.0); Lymphocytes % (auto) 13.9 %; Mean Corpuscular Hemoglobin 29.8 pg (25-34); Mean Corpuscular Hgb Conc 33.5 g/dL (32-36); Mean Corpuscular Volume 89.1 fL (80-100); Mean Platelet Volume 11.2 fL (7.4-10.4); Monocytes # (auto) 0.64 K/uL (0.11-0.59); Monocytes % (auto) 8.9 %; Neutrophils # (auto) 5.46 K/uL (1.4-6.5); Neutrophils % (auto) 76.1 %; Platelet Count 242 K/uL (130-400); RDW Coefficient of Variation 14.8 % (11.5-14.5); RDW Standard Deviation 48.2 fL (36.4-46.3); Red Blood Count 5.13 M/uL (4.2-5.4); White Blood Count 7.18 K/uL (4.8-10.8)
[2019-11-17] MEDS ORDERED: SODIUM CHLORIDE 0.9% 1000ML 1,000 ML IV ONE (14:56)
[2019-11-17] MEDS ORDERED: cefTRIAXone SODIUM 1,000 MG/50 ML BAG IV STA (15:00)
[2019-11-17 15:08] LABS: Chloride 104 mmol/L (98-107); Potassium 3.3 mmol/L (3.5-5.1); Sodium 138 mmol/L (136-145)
[2019-11-17 15:13] LABS: Alanine Aminotransferase 12 U/L (12-78); Albumin Level 3.7 gm/dl (3.4-5.0); Aspartate Aminotransferase 15 U/L (15-37); Blood Urea Nitrogen 9 mg/dl (7-18); Calcium 9.2 mg/dl (8.5-10.1); Carbon Dioxide 30 mmol/L (21-32); Creatinine Clr Calc Pharmacy 39.4 ml/min; Est GFR (African American) 71.4; Est GFR (Non-African American) 61.6; Glucose 103 mg/dl (70-99)
[2019-11-17 15:15] LABS: INR 1.2 (0.9-1.1); Partial Thromboplastin Time 28.8 Seconds (21.0-31.0); Prothrombin Time 12.6 Seconds (9.0-12.0)
[2019-11-17 15:16] LABS: Albumin Globulin Ratio 0.8 (0.9-2); Alkaline Phosphatase 77 U/L (45-117); Bilirubin,Total 0.7 mg/dl (0.2-1); Globulin 4.5 gm/dl (2.5-4.0); Magnesium 1.9 mg/dl (1.8-2.4); Total Protein 8.2 gm/dl (6.4-8.2)
--- NOTE | 2019-11-17 15:21 | XRay Report ---
SINGLE VIEW CHEST CLINICAL HISTORY: Sepsis. FINDINGS: 2 AP, portable, upright chest radiographs are compared to study dated 07/23/2019. The exami nation is degraded by portable technique and patient rotation. A large hiatal hernia is observed. The heart is enlarged noting atherosclerotic calcification of the thoracic aorta. Pulmonary vasculature is noncongested. Foci of scarring/atelectasis are present throughout both lungs, greatest at the lung bases. No airspace consolidation is seen typical for pneumonia. A trace right pleural effusion is leavitt spected. No pneumothorax is seen. The skeletal structures are osteopenic. The bony thorax is grossly intact. Calcific tendinopathy is noted in the left shoulder. IMPRESSION: 1. Cardiomegaly without radiographic evidence of congestive failure. 2. Large hiatal hernia. 3. Suspect a trace right pleural effusion. ACT 112: Negative or not required by law. Electronically signed by: Francis Herzog M.D. 11/17/2019 3:20 PM
[2019-11-17 15:22] LABS: Troponin I < 0.015 ng/ml (0-0.045)
[2019-11-17 15:36] LABS: Appearance Urine Clear (Clear); Bacteria Urine Automated Negative (Negative); Bilirubin Urine Negative (Negative); Blood Urine Negative (Negative); Cast Urine Automated 0 /lpf (0-5); Color Urine Yellow; Epithelial Cell Urine Auto 0-5 /lpf (0-5); Glucose Urine UA Negative (Negative); Ketones Urine Negative (Negative); Leukocyte Esterase Urine Trace (Negative); Nitrite Urine Negative (Negative); Protein Urine Negative (Negative); RBC Urine Automated 0-4 /hpf (0-4); Specific Gravity Urine 1.008 (1.000-1.030); Urobilinogen Urine Negative (Negative)
--- NOTE | 2019-11-17 15:36 | Electrocardiogram Report ---
Test Reason : Blood Pressure : / mmHG Vent. Rate : 091 BPM Atrial Rate : 088 BPM P-R Int : 000 ms QRS Dur : 070 ms QT Int : 322 ms P-R-T Axes : 000 072 260 degrees QTc Int : 396 ms Poor data quality, interpretation may be adversely affected Atrial fibrillation with premature ventricular or aberrantly conducted complexes Low voltage QRS Septal infarct (cited on or before 04-MAY-2019) Abnormal ECG When compared with ECG of 18-JUL-2019 04:11, QRS axis Shifted right Criteria for Inferior infarct are no longer Present No significant change Confirmed by Gerardo Hunter ([id number]) on 11/17/2019 3:35:48 PM Referred By: Confirmed By:Gerardo Hunter
--- NOTE | 2019-11-17 16:24 | CT Scan Report ---
CT head/brain wo con CLINICAL HISTORY: 89 years-old Female presenting with confusion, altered mental status. TECHNIQUE: Multidetector CT imaging of the head was performed without the use of intravenous contrast . IV contrast: None. One or more dose lowering techniques were used consistent with the principles of ALARA (as low as reasonably achievable), including automatic exposure control, mA or kV adjustment t o individual patient size, and/or use of iterative reconstruction. COMPARISON: 07/18/2019. CT DOSE (mGy.cm): The estimated cumulative dose is 2465.83 mGy.cm. 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 Motion artifact moderately degrades image quality and moderately limits diagnostic sensitivity the ex am. Proportional ventricular and sulcal prominence, likely age-related parenchymal volume loss. However, there is gyral crowding at the vertex, unchanged from prior. No hemorrhage. Periventricular and subco rtical white matter hypoattenuation, nonspecific but likely indicative of chronic small vessel ischem ic change. Old lacunar infarct in the right basal ganglia. Previously demonstrated old left occipital lobe infarct is not as well demonstrated on the current exam. No acute territorial infarct. No mass effect or midline shift. No extra-axial fluid collection. Paranasal sinuses and mastoid air cells philippe ar. Calvarium intact. IMPRESSION: Motion artifact moderately degrades image quality and moderately limits diagnostic sensitivity the ex am. 1. Gyral crowding at the vertex could suggest the presence of normal pressure hydrocephalus. The kierra earance is unchanged from prior. 2. 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 No acute intracranial abnormalit y. ACT 112: Negative or not required by law. Electronically signed by: Manuel Babin M.D. 11/17/2019 4:23 PM
[2019-11-17] MEDS ORDERED: HydrALAZINE HCL 20 MG/ML VIAL IV STA (16:33)
[2019-11-17 16:57] LABS: Influenza A virus by PCR Neg for Influ A (Neg); Influenza B virus by PCR Neg for Influ B (Neg)
--- NOTE | 2019-11-17 18:03 | Emergency Department Note ---
Entered by Angélica Musa acting as a scribe for History of Present Illness General Chief complaint: Illness Stated complaint: ams Time Seen by Provider: 11/17/19 14:43 Source: patient, family, RN notes reviewed, old records reviewed and other (caser up) Mode of arrival: EMS Limitations: other (mental status) History of Present Illness Provider complaint: Confusion Location: head The patient is an 89 year old female with a history of dementia, hypertension, hypothyroidism, and atrial fibrillation who presents to the Emergency Room with complaints of worsening confusion starting today. Per family, the patient usually experiences increased confusion and assumes a bent over position in bed when she has a UTI. They add that she has not been producing as much urine as usual over the past week. They also mention that the patient been suffering from a poor appetite, significant weight loss, some heavy breathing, and some cough but no fever. Per the nurse's notes, the patient is on a daily preventative dose of Macrobid. Per caser up, the patient is on hospice and currently lives at the [facility]. She mentions that the hospice nurse she spoke to over the phone explained that the patient likely needs shelter for more comprehensive care. She continues to report that the patient was taken off of Coumadin a few weeks ago secondary to frequent falls and is now just on aspirin. The family confirms that the patient is a DNR but is agreeable to receiving antibiotics. Per the patient's medical records, the patient's last few urine cultures grew out E. coli that is very sensitive to antibiotics. HPI limited secondary to mental status. Home Medications Home Medications Medication Instructions Recorded Confirmed Type cholecalciferol (vitamin D3) 2,000 unit PO DAILY@0800 08/18/18 11/17/19 History [Vitamin D3] cyanocobalamin (vitamin B-12) 1,000 mcg IM MONTHLY 08/18/18 11/17/19 History omeprazole 20 mg PO DAILY@0800 08/18/18 11/17/19 History ferrous sulfate [iron] 325 mg PO DAILY@0800 03/27/19 11/17/19 History nitroglycerin [Nitrostat] 0.4 mg SUBLINGUAL DIRECTED PRN 03/27/19 11/17/19 History nystatin 1 applic TOPICAL BID 06/30/19 11/17/19 History sennosides-docusate sodium 1 tab-cap PO BID 07/07/19 11/17/19 History [Senna-S] acetaminophen 650 mg PO Q4H PRN 07/18/19 11/17/19 History artificial tears(hypromellose) 1 drp OPHTHALMIC (EYE) BID 07/18/19 11/17/19 History losartan 50 mg PO BID 30 Days #60 tab 07/28/19 11/17/19 Rx metoprolol succinate 25 mg PO BID 30 Days #60 tab 07/28/19 11/17/19 Rx amlodipine 5 mg PO BID 11/17/19 11/17/19 History buspirone 5 mg PO DAILY@0800 11/17/19 11/17/19 History furosemide 20 mg PO DAILY PRN 11/17/19 11/17/19 History furosemide 20 mg PO QAM 11/17/19 11/17/19 History hydrocodone-acetaminophen 0.5 tab PO TID 11/17/19 11/17/19 History levothyroxine 125 mcg PO DAILY@0800 11/17/19 11/17/19 History lorazepam 0.5 mg PO Q6H PRN 11/17/19 11/17/19 History menthol [Biofreeze (menthol)] 1 applic TOPICAL BID 11/17/19 11/17/19 History nitrofurantoin monohyd/m-cryst 100 mg PO DAILY@0800 11/17/19 11/17/19 History Allergies Allergy/AdvReac Type Severity Reaction Status Date / Time Cipro Allergy Unknown RASH,SEVERE Verified 03/14/18 21:16 HEADACHE ciprofloxacin Allergy Unknown RASH,SEVERE Verified 11/17/19 15:03 HEADACHE aspirin AdvReac Intermediate nose bleeds Verified 11/17/19 15:03 Sulfa (Sulfonamide AdvReac Unknown HEADACHE Verified 11/17/19 15:03 Antibiotics) WITH BACTRIM Past Med/Surg History Medical History Atrial fibrillation Chronic back pain (Inactive) Chronic venous stasis (Chronic) Dementia Diastolic dysfunction (Chronic) Do not resuscitate status Female stress incontinence (Chronic) GERD (gastroesophageal reflux disease) (Chronic) Hypertension Hypothyroidism (Chronic) Iron deficiency anemia (Chronic) Pelvic mass (Chronic) [facility] 07/20/19 5 cm cystic left adnexal mass, likely ovarian. No further evaluation given advanced age and comorbidities. Surgical History History of cystoscopy (Resolved) Family History Other Diabetes Hypertension Lung cancer Social History Preferred Language: German Communication Ability: Impaired Resident Services Manager Required: No Beliefs That Will Affect Care: None marital status: Current Living Situation: Personal Care Facility current occupational status: retired Other Information That Helps Us Care for You: No Feels Safe at Home: Yes Smoking Status: Never smoker Hx Alcohol Use: No Hx Substance Use: No Review of Systems Other (Limited secondary to mental status) Physical Exam Vital Signs Vital Signs - 24 hr 11/17/19 13:51 11/17/19 13:57 11/17/19 13:59 Temperature 36.5 C Temperature Source Oral Pulse Rate 87 88 Pulse Rate from SpO2 Sensor 87 Respiratory Rate 18 23 18 Blood Pressure 159/84 H 170/90 H Blood Pressure Mean 109 116 Pulse Oximetry 93 98 Oxygen Delivery Method Room Air Sepsis Recent Fever Within 48 Hours No Sepsis Action Taken by Nursing No Action Required 11/17/19 14:00 11/17/19 14:01 11/17/19 14:10 Temperature Temperature Source Pulse Rate 77 90 99 H Pulse Rate from SpO2 Sensor 92 H 90 Respiratory Rate 18 13 21 Blood Pressure 171/93 H Blood Pressure Mean 107 Pulse Oximetry 92 89 L Oxygen Delivery Method Sepsis Recent Fever Within 48 Hours Sepsis Action Taken by Nursing 11/17/19 14:20 11/17/19 14:30 11/17/19 14:31 Temperature Temperature Source Pulse Rate 93 H 103 H 91 H Pulse Rate from SpO2 Sensor Respiratory Rate 21 21 15 Blood Pressure 175/112 H Blood Pressure Mean 136 Pulse Oximetry Oxygen Delivery Method Sepsis Recent Fever Within 48 Hours Sepsis Action Taken by Nursing 11/17/19 14:40 11/17/19 14:50 Temperature Temperature Source Pulse Rate 89 87 Pulse Rate from SpO2 Sensor Respiratory Rate 21 20 Blood Pressure Blood Pressure Mean Pulse Oximetry Oxygen Delivery Method Sepsis Recent Fever Within 48 Hours Sepsis Action Taken by Nursing GENERAL: Patient is in no acute distress. HEENT: No acute trauma, normocephalic atraumatic, mucous membranes are dry, no nasal congestion, no scleral icterus. NECK: No stridor, no adenopathy, no meningismus, trachea is midline. LUNGS: Clear to auscultation bilaterally, no wheeze, no rhonchi, breath sounds equal. HEART: Irregular rhythm, no murmurs, normal rate. ABDOMEN: Soft, nontender, bowel sounds positive, no hernias, no peritonitis. EXTREMITIES: No cyanosis or edema, full range of motion of all the joints without pain or difficulty, no signs for acute trauma. NEUROLOGIC: Awake, no acute motor or sensory deficits, no focal weakness. Responds to touch and loud voice. SKIN: No rash, no jaundice, no diaphoresis. Course Course 1452: The patient was evaluated in room C8, and a complete history and physical examination were performed. 1633: On reevaluation, the patient is resting. I discussed the results and findings with him and he verbalized agreement of the treatment plan. 1640: I discussed the patient's case with Hawa Ramirez PA-C. Dr. Kayden Burt will evaluate the patient for further management. Consultations Consultation #1: I discussed the patient's case with Hawa Ramirez PA-C. Dr. Kayden Burt will evaluate the patient for further management. Time: 16:40 Administered Medications Discontinued Medications Hydralazine HCl (Hydralazine Hcl) 10 mg IV NOW STA Stop: 11/17/19 16:34 Last Admin: 11/17/19 17:17 Dose: Not Given Documented by: [id number] Sodium Chloride (Nss 1000ml) 1,000 mls @ 999 mls/hr IV .Q1H1M ONE Stop: 11/17/19 15:56 Last Infusion: 11/17/19 17:18 Dose: 0 mls/hr Documented by: [id number] Admin: 11/17/19 15:40 Dose: 999 mls/hr Documented by: [id number] Ceftriaxone Sodium (Rocephin) 1,000 mg in 50 mls @ 100 mls/hr IV NOW STA Stop: 11/17/19 15:29 Last Infusion: 11/17/19 17:18 Dose: 0 mls/hr Documented by: [id number] Admin: 11/17/19 15:40 Dose: 100 mls/hr Documented by: [id number] Medical Decision Making Differential Diagnosis Differential diagnosis includes: dehydration, renal failure, electrolyte imbalance, UTI, pyelonephritis, sepsis, pneumonia, stroke, hypertension. Medical Records Attestation: I reviewed the patient's medical records. Home Medications Current Medication List: was personally reviewed by me Laboratory Data Attestation: I reviewed the patient's lab results. Result diagrams: 11/17/19 14:39 11/17/19 14:39 Lab Results 11/17/19 11/17/19 11/17/19 Range/Units 14:39 14:39 14:39 WBC 7.18 (4.8-10.8) K/uL RBC 5.13 (4.2-5.4) M/uL Hgb 15.3 (12.0-16.0) g/dL Hct 45.7 (37-47) % MCV 89.1 (80-100) fL MCH 29.8 (25-34) pg MCHC 33.5 (32-36) g/dL RDW Std Deviation 48.2 H (36.4-46.3) fL RDW Coeff of Evelio 14.8 H (11.5-14.5) % Plt Count 242 (130-400) K/uL MPV 11.2 H (7.4-10.4) fL Immature Gran % (Auto) 0.0 % Neut % (Auto) 76.1 % Lymph % (Auto) 13.9 % Galax % (Auto) 8.9 % Eos % (Auto) 0.8 % Baso % (Auto) 0.3 % Immature Gran # (Auto) 0.00 (0.00-0.02) K/uL Neut # (Auto) 5.46 (1.4-6.5) K/uL Lymph # (Auto) 1.00 L (1.2-3.4) K/uL Galax # (Auto) 0.64 H (0.11-0.59) K/uL Eos # (Auto) 0.06 (0-0.5) K/uL Baso # (Auto) 0.02 (0-0.2) K/uL PT (9.0-12.0) Seconds INR (0.9-1.1) APTT (21.0-31.0) Seconds PTT Ratio Sodium 138 (136-145) mmol/L Potassium 3.3 L (3.5-5.1) mmol/L Chloride 104 (98-107) mmol/L Carbon Dioxide 30 (21-32) mmol/L Anion Gap 4.0 (3-11) BUN 9 (7-18) mg/dl Creatinine 0.84 (0.6-1.2) mg/dl Est Cr Clr Drug Dosing 39.4 ml/min Est GFR ( Amer) 71.4 Est GFR (Non-Af Amer) 61.6 BUN/Creatinine Ratio 11.0 (10-20) Glucose 103 H (70-99) mg/dl Lactate (0.4-2.0) mmol/L Calcium 9.2 (8.5-10.1) mg/dl Magnesium 1.9 (1.8-2.4) mg/dl Total Bilirubin 0.7 (0.2-1) mg/dl AST 15 (15-37) U/L ALT 12 (12-78) U/L Alkaline Phosphatase 77 (45-117) U/L Troponin I < 0.015 (0-0.045) ng/ml Total Protein 8.2 (6.4-8.2) gm/dl Albumin 3.7 (3.4-5.0) gm/dl Globulin 4.5 H (2.5-4.0) gm/dl Albumin/Globulin Ratio 0.8 L (0.9-2) Procalcitonin (0-0.5) ng/ml TSH 1.750 (0.300-4.500) uIu/ml Urine Color Urine Appearance (Clear) Urine pH (4.5-7.5) Ur Specific Elmer (1.000-1.030) Urine Protein (Negative) Urine Glucose (UA) (Negative) Urine Ketones (Negative) Urine Blood (Negative) Urine Nitrite (Negative) Urine Bilirubin (Negative) Urine Urobilinogen (Negative) Ur Leukocyte Esterase (Negative) Urine WBC (Auto) (0-5) /hpf Urine RBC (Auto) (0-4) /hpf U Hyaline Cast (Auto) (0-5) /lpf U Epithel Cells (Auto) (0-5) /lpf Urine Bacteria (Auto) (Negative) Influenza Type A (PCR) (Neg) Influenza Type B (PCR) (Neg) 11/17/19 11/17/19 11/17/19 Range/Units 14:40 14:40 15:04 WBC (4.8-10.8) K/uL RBC (4.2-5.4) M/uL Hgb (12.0-16.0) g/dL Hct (37-47) % MCV (80-100) fL MCH (25-34) pg MCHC (32-36) g/dL RDW Std Deviation (36.4-46.3) fL RDW Coeff of Evelio (11.5-14.5) % Plt Count (130-400) K/uL MPV (7.4-10.4) fL Immature Gran % (Auto) % Neut % (Auto) % Lymph % (Auto) % Galax % (Auto) % Eos % (Auto) % Baso % (Auto) % Immature Gran # (Auto) (0.00-0.02) K/uL Neut # (Auto) (1.4-6.5) K/uL Lymph # (Auto) (1.2-3.4) K/uL Galax # (Auto) (0.11-0.59) K/uL Eos # (Auto) (0-0.5) K/uL Baso # (Auto) (0-0.2) K/uL PT 12.6 H (9.0-12.0) Seconds INR 1.2 H (0.9-1.1) APTT 28.8 (21.0-31.0) Seconds PTT Ratio 1.0 Sodium (136-145) mmol/L Potassium (3.5-5.1) mmol/L Chloride (98-107) mmol/L Carbon Dioxide (21-32) mmol/L Anion Gap (3-11) BUN (7-18) mg/dl Creatinine (0.6-1.2) mg/dl Est Cr Clr Drug Dosing ml/min Est GFR ( Amer) Est GFR (Non-Af Amer) BUN/Creatinine Ratio (10-20) Glucose (70-99) mg/dl Lactate (0.4-2.0) mmol/L Calcium (8.5-10.1) mg/dl Magnesium (1.8-2.4) mg/dl Total Bilirubin (0.2-1) mg/dl AST (15-37) U/L ALT (12-78) U/L Alkaline Phosphatase (45-117) U/L Troponin I (0-0.045) ng/ml Total Protein (6.4-8.2) gm/dl Albumin (3.4-5.0) gm/dl Globulin (2.5-4.0) gm/dl Albumin/Globulin Ratio (0.9-2) Procalcitonin < 0.05 (0-0.5) ng/ml TSH (0.300-4.500) uIu/ml Urine Color Yellow Urine Appearance Clear (Clear) Urine pH 8.0 H (4.5-7.5) Ur Specific Elmer 1.008 (1.000-1.030) Urine Protein Negative (Negative) Urine Glucose (UA) Negative (Negative) Urine Ketones Negative (Negative) Urine Blood Negative (Negative) Urine Nitrite Negative (Negative) Urine Bilirubin Negative (Negative) Urine Urobilinogen Negative (Negative) Ur Leukocyte Esterase Trace H (Negative) Urine WBC (Auto) 5-10 H (0-5) /hpf Urine RBC (Auto) 0-4 (0-4) /hpf U Hyaline Cast (Auto) 0 (0-5) /lpf U Epithel Cells (Auto) 0-5 (0-5) /lpf Urine Bacteria (Auto) Negative (Negative) Influenza Type A (PCR) (Neg) Influenza Type B (PCR) (Neg) 11/17/19 11/17/19 Range/Units 15:40 16:03 WBC (4.8-10.8) K/uL RBC (4.2-5.4) M/uL Hgb (12.0-16.0) g/dL Hct (37-47) % MCV (80-100) fL MCH (25-34) pg MCHC (32-36) g/dL RDW Std Deviation (36.4-46.3) fL RDW Coeff of Evelio (11.5-14.5) % Plt Count (130-400) K/uL MPV (7.4-10.4) fL Immature Gran % (Auto) % Neut % (Auto) % Lymph % (Auto) % Galax % (Auto) % Eos % (Auto) % Baso % (Auto) % Immature Gran # (Auto) (0.00-0.02) K/uL Neut # (Auto) (1.4-6.5) K/uL Lymph # (Auto) (1.2-3.4) K/uL Galax # (Auto) (0.11-0.59) K/uL Eos # (Auto) (0-0.5) K/uL Baso # (Auto) (0-0.2) K/uL PT (9.0-12.0) Seconds INR (0.9-1.1) APTT (21.0-31.0) Seconds PTT Ratio Sodium (136-145) mmol/L Potassium (3.5-5.1) mmol/L Chloride (98-107) mmol/L Carbon Dioxide (21-32) mmol/L Anion Gap (3-11) BUN (7-18) mg/dl Creatinine (0.6-1.2) mg/dl Est Cr Clr Drug Dosing ml/min Est GFR ( Amer) Est GFR (Non-Af Amer) BUN/Creatinine Ratio (10-20) Glucose (70-99) mg/dl Lactate 1.2 (0.4-2.0) mmol/L Calcium (8.5-10.1) mg/dl Magnesium (1.8-2.4) mg/dl Total Bilirubin (0.2-1) mg/dl AST (15-37) U/L ALT (12-78) U/L Alkaline Phosphatase (45-117) U/L Troponin I (0-0.045) ng/ml Total Protein (6.4-8.2) gm/dl Albumin (3.4-5.0) gm/dl Globulin (2.5-4.0) gm/dl Albumin/Globulin Ratio (0.9-2) Procalcitonin (0-0.5) ng/ml TSH (0.300-4.500) uIu/ml Urine Color Urine Appearance (Clear) Urine pH (4.5-7.5) Ur Specific Elmer (1.000-1.030) Urine Protein (Negative) Urine Glucose (UA) (Negative) Urine Ketones (Negative) Urine Blood (Negative) Urine Nitrite (Negative) Urine Bilirubin (Negative) Urine Urobilinogen (Negative) Ur Leukocyte Esterase (Negative) Urine WBC (Auto) (0-5) /hpf Urine RBC (Auto) (0-4) /hpf U Hyaline Cast (Auto) (0-5) /lpf U Epithel Cells (Auto) (0-5) /lpf Urine Bacteria (Auto) (Negative) Influenza Type A (PCR) Neg for Influ A (Neg) Influenza Type B (PCR) Neg for Influ B (Neg) Imaging Data Radiologist's Impression: Radiology results as stated below per my review and the radiologist's interpretation: CT head/brain wo con CLINICAL HISTORY: 89 years-old Female presenting with confusion, altered mental status. TECHNIQUE: Multidetector CT imaging of the head was performed without the use of intravenous contrast. IV contrast: None. One or more dose lowering techniques were used consistent with the principles of ALARA (as low as reasonably achievable), including automatic exposure control, mA or kV adjustment to individual patient size, and/or use of iterative reconstruction. COMPARISON: 07/18/2019. CT DOSE (mGy.cm): The estimated cumulative dose is 2465.83 mGy.cm. FINDINGS: Radio Recorder topogram: Unremarkable. Motion artifact moderately degrades image quality and moderately limits diagnostic sensitivity the exam. Proportional ventricular and sulcal prominence, likely age-related parenchymal volume loss. However, there is gyral crowding at the vertex, unchanged from prior. No hemorrhage. Periventricular and subcortical white matter hypoattenuation, nonspecific but likely indicative of chronic small vessel ischemic change. Old lacunar infarct in the right basal ganglia. Previously demonstrated old left occipital lobe infarct is not as well demonstrated on the current exam. No acute territorial infarct. No mass effect or midline shift. No extra-axial fluid collection. Paranasal sinuses and mastoid air cells clear. Calvarium intact. IMPRESSION: Motion artifact moderately degrades image quality and moderately limits diagnostic sensitivity the exam. 1. Gyral crowding at the vertex could suggest the presence of normal pressure hydrocephalus. The appearance is unchanged from prior. 2. 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 No acute intracranial abnormality. ACT 112: Negative or not required by law. Electronically signed by: Manuel Babin M.D. 11/17/2019 4:23 PM SINGLE VIEW CHEST CLINICAL HISTORY: Sepsis. FINDINGS: 2 AP, portable, upright chest radiographs are compared to study dated 07/23/2019. The examination is degraded by portable technique and patient rotation. A large hiatal hernia is observed. The heart is enlarged noting atherosclerotic calcification of the thoracic aorta. Pulmonary vasculature is noncongested. Foci of scarring/atelectasis are present throughout both lungs, greatest at the lung bases. No airspace consolidation is seen typical for pneumonia. A trace right pleural effusion is suspected. No pneumothorax is seen. The skeletal structures are osteopenic. The bony thorax is grossly intact. Calc ific tendinopathy is noted in the left shoulder. IMPRESSION: 1. Cardiomegaly without radiographic evidence of congestive failure. 2. Large hiatal hernia. 3. Suspect a trace right pleural effusion. ACT 112: Negative or not required by law. Electronically signed by: Francis Herzog M.D. 11/17/2019 3:20 PM ECG Data Attestation: I personally reviewed and interpreted this ECG as follows: Indication: + other (confusion) Rate (beats per minute): 91 Rhythm: + atrial fibrillation ECG ST segments: + Nonspecific ST abnormalities (diffuse) ECG Findings: + PVCs and + Other (poor baseline, old septal infarct, QT-c is 396) Blood Pressure Blood Pressure Findings: Elevated blood pressure Blood Pressure Disposition: further management by hospitalist [facility] Narrative There is no leukocytosis or concerning anemia. There was a normal platelet count. INR slightly high at 1.2. No significant electrolyte abnormality or kidney failure. Lactic acid level was not elevated making sepsis less likely. No worrisome liver enzyme elevation. Procalcitonin level was not elevated. EKG shows atrial fibrillation, no acute ischemia. Cardiac enzyme testing x1 is not consistent with acute cardiac injury. Urinalysis is suspicious for infection, urine culture is pending. Influenza testing was negative. Brain CT shows no acute bleed or mass-effect. Chest film does not show pneumonia or CHF. The patient presents with a potential UTI. She has been more confused and has had a change in her urine outs. She has presented like this before with urinary infections. She is on Macrobid as a preventative medication. The patient received IV saline, she was given IV ceftriaxone as antibiotic coverage. She was ordered for IV hydralazine but this was held as her blood pressure seemed to decrease on its own. I spoke to the patient, I spoke to the family, I did consult case management. At this point, the patient does require a hospital stay and likely placement to a higher level of care. Her personal intermediate is not currently able to provide the amount of care she is requiring. It does appear that her change in mental status is secondary to a urinary infection. Continuous Cardiac Monitoring: An order was placed for continuous cardiac monitoring. The monitor shows a rate of 87 with atrial fibrillation. Impression & Plan Change in mental status, Weakness, Acute UTI, Failure of outpatient treatment Discharge Plan Visit Data *Final* Discharge Date/Time: 11/17/19 18:25 Chief Complaint: Illness Stated Complaint: ams ED Provider: Francis Luis Discharge Problem: Change in mental status, Weakness, Acute UTI, Failure of outpatient treatment Patient Disposition: Admitted As Inpatient Discharge Instructions Interventions: ED Discharge Assessment Last Done: 11/17/19 18:25 The glenroyibe's documentation has been prepared under my direction and personally reviewed by me in its entirety. I confirm that the note above accurately reflects all work, treatment, procedures, and medical decision making performed by me.
--- NOTE | 2019-11-17 18:52 | History & Physical Report ---
Date of Service November 17, 2019 Assessment & Plan (1) Altered mental status: (2) Generalized weakness: (3) Urinary tract infection: -admit to med/surg -patient presenting from [facility] for evaluation of altered mental status, generalized weakness -currently receiving hospice care; hospice agency called manager endoscopy who advised the patient needs a higher level of care -likely metabolic encephalopathy due to possible UTI (UA does not strongly suggest UTI); no other infectious sources noted -s/p ceftriaxone in the ED, will continue with -follow urine culture -does not appear septic -PT/OT, case management evals (4) Atrial fibrillation: -rate controlled on beta ambrose, will continue -coumadin discontinued as an outpatient due to frequent falls (5) Hypothyroidism: -continue levothyroxine -check TSH due to weakness (6) Hypertension: -BP controlled, continue amlodipine, losartan, metoprolol (7) Diastolic dysfunction: -appears euvolemic -continue lasix (8) DVT prophylaxis: -SQ Lovenox History of Present Illness Chief Complaint: Altered Mental Status, Weakness Primary Care Provider: Dr. Wheeler 89 year old female who presents to the ED from [facility] for evaluation of altered mental status and generalized weakness. History is currently unobtainable from the patient due to underlying dementia. Some history is obtained from the patient's family. Patient's daughter reports increasing confusion and generalized weakness over the past couple of weeks. She also noted foul smelling urine. Patient has been requiring a lot more assistance. Patient is currently under hospice and the hospice agency notified ED case management that the patient now requires a higher level of care. No reported fever or chills. In the ED, patient's UA suggests possible UTI. Patient is hemodynamically stable. Labs are unremarkable. She was given IVF and IV ceftriaxone. Allergies Allergy/AdvReac Type Severity Reaction Status Date / Time Cipro Allergy Unknown RASH,SEVERE Verified 03/14/18 21:16 HEADACHE ciprofloxacin Allergy Unknown RASH,SEVERE Verified 11/17/19 15:03 HEADACHE aspirin AdvReac Intermediate nose bleeds Verified 11/17/19 15:03 Sulfa (Sulfonamide AdvReac Unknown HEADACHE Verified 11/17/19 15:03 Antibiotics) WITH BACTRIM Home Medications Home Medications Medication Instructions Recorded Confirmed Type cholecalciferol (vitamin D3) 2,000 unit PO DAILY@0800 08/18/18 11/17/19 History [Vitamin D3] cyanocobalamin (vitamin B-12) 1,000 mcg IM MONTHLY 08/18/18 11/17/19 History omeprazole 20 mg PO DAILY@0800 08/18/18 11/17/19 History ferrous sulfate [iron] 325 mg PO DAILY@0800 03/27/19 11/17/19 History nitroglycerin [Nitrostat] 0.4 mg SUBLINGUAL DIRECTED PRN 03/27/19 11/17/19 History nystatin 1 applic TOPICAL BID 06/30/19 11/17/19 History sennosides-docusate sodium 1 tab-cap PO BID 07/07/19 11/17/19 History [Senna-S] acetaminophen 650 mg PO Q4H PRN 07/18/19 11/17/19 History artificial tears(hypromellose) 1 drp OPHTHALMIC (EYE) BID 07/18/19 11/17/19 History losartan 50 mg PO BID 30 Days #60 tab 07/28/19 11/17/19 Rx metoprolol succinate 25 mg PO BID 30 Days #60 tab 07/28/19 11/17/19 Rx amlodipine 5 mg PO BID 11/17/19 11/17/19 History buspirone 5 mg PO DAILY@0800 11/17/19 11/17/19 History furosemide 20 mg PO DAILY PRN 11/17/19 11/17/19 History furosemide 20 mg PO QAM 11/17/19 11/17/19 History hydrocodone-acetaminophen 0.5 tab PO TID 11/17/19 11/17/19 History levothyroxine 125 mcg PO DAILY@0800 11/17/19 11/17/19 History lorazepam 0.5 mg PO Q6H PRN 11/17/19 11/17/19 History menthol [Biofreeze (menthol)] 1 applic TOPICAL BID 11/17/19 11/17/19 History nitrofurantoin monohyd/m-cryst 100 mg PO DAILY@0800 11/17/19 11/17/19 History Past Med/Surg History Medical History Atrial fibrillation Chronic back pain (Inactive) Chronic venous stasis (Chronic) Dementia Diastolic dysfunction (Chronic) Do not resuscitate status Female stress incontinence (Chronic) GERD (gastroesophageal reflux disease) (Chronic) Hypertension Hypothyroidism (Chronic) Iron deficiency anemia (Chronic) Pelvic mass (Chronic) CT [facility] 07/20/19 5 cm cystic left adnexal mass, likely ovarian. No further evaluation given advanced age and comorbidities. 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 Beliefs That Will Affect Care: None marital status: Current Living Situation: Personal Care Facility current occupational status: retired Other Information That Helps Us Care for You: No Feels Safe at Home: Yes Smoking Status: Never smoker Hx Alcohol Use: No Hx Substance Use: No Review of Systems Review of Systems: Unobtainable due to cognitive status Physical Exam Constitutional: WD/WN, vitals as above Eyes: legally blind ENMT: external ear and nose normal, oropharynx normal Respiratory: normal respiratory effort; no respiratory distress Auscultation: + diminished lung sounds Cardiovascular: Rate/Rhythm: regular rate and + irregularly irregular Vessels: normal peripheral pulses Extremities: no edema Gastrointestinal (Abdomen): normal bowel sounds, soft, nontender, no hepatosplenomegaly Musculoskeletal: no cyanosis or clubbing, extremities motor strength 5/5 Skin: no rashes, warm and dry Neurologic: no focal motor deficits Speech / Cognition: normal speech Cranial Nerves: normal facial strength Psychiatric: Orientation: alert and oriented to person; + not oriented to place and + not oriented to time Insight: + poor insight Results & Data Vital Signs (Past 12 Hours) Vital Signs Temp Pulse Pulse Resp BP BP Pulse Ox 11/17/19 18:00 101 H 20 154/98 H 11/17/19 14:50 87 20 11/17/19 14:40 89 21 11/17/19 14:31 91 H 15 11/17/19 14:30 103 H 21 175/112 H 11/17/19 14:20 93 H 21 11/17/19 14:10 99 H 21 11/17/19 14:01 90 13 89 L 11/17/19 14:00 77 18 171/93 H 92 11/17/19 13:59 36.5 C 88 18 170/90 H 98 11/17/19 13:57 87 23 11/17/19 13:51 18 159/84 H 93 Laboratory Results Short CBC 11/17/19 Range/Units 14:39 WBC 7.18 (4.8-10.8) K/uL Hgb 15.3 (12.0-16.0) g/dL Hct 45.7 (37-47) % Plt Count 242 (130-400) K/uL BMP 11/17/19 14:39 Sodium 138 Potassium 3.3 L Chloride 104 Carbon Dioxide 30 BUN 9 Creatinine 0.84 Glucose 103 H Calcium 9.2 Cardiac Enzymes 11/17/19 Range/Units 14:39 Troponin I < 0.015 (0-0.045) ng/ml Liver Function 11/17/19 Range/Units 14:39 Total Bilirubin 0.7 (0.2-1) mg/dl AST 15 (15-37) U/L ALT 12 (12-78) U/L Alkaline Phosphatase 77 (45-117) U/L Albumin 3.7 (3.4-5.0) gm/dl Urine 11/17/19 Range/Units 15:04 Urine Color Yellow Urine Appearance Clear (Clear) Urine pH 8.0 H (4.5-7.5) Ur Specific [place] 1.008 (1.000-1.030) Urine Protein Negative (Negative) Urine Glucose (UA) Negative (Negative) Diagnostic Findings CXR IMPRESSION: 1. Cardiomegaly without radiographic evidence of congestive failure. 2. Large hiatal hernia. 3. Suspect a trace right pleural effusion. CT HEAD IMPRESSION: Motion artifact moderately degrades image quality and moderately limits di agnostic sensitivity the exam. 1. Gyral crowding at the vertex could suggest the presence of normal pressure hydrocephalus. The appearance is unchanged from prior. 2. 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 No acute intracranial abnormality. Code Status & VTE Plan Code Status Patient is a DNR as per my discussion with patient's family and also according to paperwork sent with the patient from [facility]. VTE Prophylaxis Plan VTE Prophylaxis will be ordered: Yes Supervising Physician Co-Signing Physician Notes Attending addendum: The patient was seen and examined in emergency room She has undiagnosed pelvic mass likely malignant, dementia, acute on chronic diastolic heart failure and has been under hosp[facility] care in a [facility] She has been confused recently with very foul-smelling urine and requires more care that can be given in personal prison She has dementia and not in any acute distress during examination Cannot define any symptoms On examination Lying in bed comfortably Hemodynamically stable Chest-clear to auscultate bilaterally Heart-S1-S2, irregular Abdomen-benign Extremities-no edema [employer]-alert and awake. Has dementia Admission labs, EKG and imaging studies were unremarkable She was admitted with increasing confusion likely secondary to UTI She will need to be placed in a facility with hospice care Agree with assessment and plan as outlined above by Sultana Monique
[2019-11-17] MEDS ORDERED: ACETAMINOPHEN 325 MG TAB PO PRN (19:14)
[2019-11-17] MEDS ORDERED: POTASSIUM CHLORIDE 20 MEQ TABCR PO ONE (20:00)
[2019-11-17] MEDS: LORazepam 0.5 MG TAB PO PRN (21:03)
[2019-11-17] MEDS: METOPROLOL SUCC 25MG EXT REL TAB PO SCH (21:04)
[2019-11-17] MEDS: AMLODIPINE BESYLATE 5 MG TAB PO SCH (21:04)
[2019-11-17] MEDS: LOSARTAN POTASSIUM 50 MG TAB PO SCH (21:05)
[2019-11-17] MEDS: NYSTATIN POWDER 15GM BTL EXT SCH (21:05)
[2019-11-17] MEDS: ENOXAPARIN INJ 40 MG/0.4 ML SYR SQ SCH (21:05)
[2019-11-17] MEDS: HYDROCODONE/ACETAMOPHEN 5/325MG TAB PO SCH (21:07)
[2019-11-17] MEDS: DOCUSATE SODIUM/SENNA 50/8.6MG TAB PO SCH (21:08)
[2019-11-18] MEDS: LEVOTHYROXINE SODIUM 125 MCG TABLET PO SCH (05:47)
[2019-11-18 07:15] LABS: Hematocrit (blood only) 42.6 % (37-47); Hemoglobin 14.3 g/dL (12.0-16.0); Mean Corpuscular Hemoglobin 30.2 pg (25-34); Mean Corpuscular Hgb Conc 33.6 g/dL (32-36); Mean Corpuscular Volume 89.9 fL (80-100); Mean Platelet Volume 11.2 fL (7.4-10.4); Platelet Count 217 K/uL (130-400); RDW Standard Deviation 48.8 fL (36.4-46.3); Red Blood Count 4.74 M/uL (4.2-5.4); White Blood Count 5.11 K/uL (4.8-10.8)
[2019-11-18 07:48] LABS: BUN Creatinine Ratio 11.7 (10-20); Calcium 9.1 mg/dl (8.5-10.1); Creatinine Clr Calc Pharmacy 47.3 ml/min; Est GFR (Non-African American) 76.8; Potassium 3.4 mmol/L (3.5-5.1)
[2019-11-18] MEDS: DOCUSATE SODIUM/SENNA 50/8.6MG TAB PO SCH ×2 (08:13→22:39)
[2019-11-18] MEDS: PANTOprazole 40 MG TAB PO SCH (08:14)
[2019-11-18] MEDS: LOSARTAN POTASSIUM 50 MG TAB PO SCH ×2 (08:14→15:59)
[2019-11-18] MEDS: NYSTATIN POWDER 15GM BTL EXT SCH ×2 (08:14→22:39)
[2019-11-18] MEDS: CHOLECALCIFEROL 1,000 UNITS 25 MCG TAB PO SCH (08:14)
[2019-11-18] MEDS: FERROUS SULFATE 325 MG TAB PO SCH (08:15)
[2019-11-18] MEDS: FUROSEMIDE 20 MG TAB PO SCH (08:15)
[2019-11-18] MEDS: AMLODIPINE BESYLATE 5 MG TAB PO SCH ×2 (08:15→17:30)
[2019-11-18] MEDS: METOPROLOL SUCC 25MG EXT REL TAB PO SCH ×2 (08:15→17:30)
[2019-11-18] MEDS: HYDROCODONE/ACETAMOPHEN 5/325MG TAB PO SCH ×3 (08:19→22:39)
--- NOTE | 2019-11-18 11:14 | Hospitalist Progress Note ---
Date of Service November 18, 2019 Assessment & Plan (1) Altered mental status: (2) Generalized weakness: (3) Urinary tract infection: with metabolic encephalopathy -patient presenting from [facility] for evaluation of altered mental status, generalized weakness -currently receiving hospice care; hospice agency called clinical marketing manager who advised the patient needs a higher level of care Afebrile Urine culture: Gram-negative bacilli Cultures: Pending Continue IV ceftriaxone day #2 Continue to monitor closely (4) Atrial fibrillation: -Controlled Continue metoprolol -coumadin discontinued as an outpatient due to frequent falls (5) Hypothyroidism: -continue levothyroxine (6) Hypertension: -BP controlled, continue amlodipine, losartan, metoprolol (7) Diastolic dysfunction: Euvolemic -continue lasix (8) DVT prophylaxis: -SQ Lovenox Admission and Anticipated Discharge Date Admission Date: November 17, 2019 Subjective Follow-up for encephalopathy, possible UTI Seen resting in bed, sleeping but easily awakened Pleasantly confused States she feels fine overall Denies abdominal pain but does report dysuria Denies chills No headache, dizziness, chest pain, palpitations, dizziness, nausea vomiting No other symptoms Review of Systems Review of Systems: All systems reviewed & are unremarkable except as noted in HPI & below Physical Exam Physical Exam: General- oriented x 1, not in distress, speaks in sentences with no effort or accessory muscle use Head- atraumatic Eyes- PERRL, EOMI, anicteric ENT- oropharynx clear Neck- supple, no JVD, no adenopathy, no thyromegaly; carotids +2/2, no bruits appreciated Lungs- clear to auscultation bilaterally, no rales/wheezes Heart- normal rate, regular rhythm; no murmur, no gallop, no rub appreciated Abdomen- normal bowel sounds, nondistended, soft, nontender, no masses or hepatosplenomegaly Extremities- no pretibial edema, no calf tenderness; peripheral pulses intact Neuro- alert, oriented x 1; CN 2-12 grossly intact; motor 5/5 bilaterally;sensation 100% on all extremities; no other gross focal neurologic deficits Skin- warm & dry Results & Data ([facility]) Vital Signs (Past 12 Hours) Vital Signs Temp Pulse Resp BP Pulse Ox 11/18/19 07:56 36.4 C L 76 20 148/86 H 99 11/17/19 23:43 36.3 C L 82 18 137/72 94 Laboratory Results Laboratory Results - last 24 hr 11/18/19 11/18/19 06:31 06:31 WBC 5.11 RBC 4.74 Hgb 14.3 Hct 42.6 MCV 89.9 MCH 30.2 MCHC 33.6 RDW Std Deviation 48.8 H RDW Coeff of Evelio 15.0 H Plt Count 217 MPV 11.2 H Sodium 141 Potassium 3.4 L Chloride 107 Carbon Dioxide 29 Anion Gap 5.0 BUN 8 Creatinine 0.70 Est Cr Clr Drug Dosing 47.3 Est GFR ( Amer) 89.0 Est GFR (Non-Af Amer) 76.8 BUN/Creatinine Ratio 11.7 Glucose 90 Calcium 9.1
[2019-11-18] MEDS: cefTRIAXone SODIUM 1,000 MG/50 ML BAG IV SCH (15:56)
[2019-11-18] MEDS ORDERED: POTASSIUM CHLORIDE 20 MEQ TABCR PO STA (20:53)
[2019-11-18] MEDS: ENOXAPARIN INJ 40 MG/0.4 ML SYR SQ SCH (22:39)
[2019-11-19] MEDS: LEVOTHYROXINE SODIUM 125 MCG TABLET PO SCH (05:39)
[2019-11-19] MEDS: FERROUS SULFATE 325 MG TAB PO SCH (09:20)
[2019-11-19] MEDS: NYSTATIN POWDER 15GM BTL EXT SCH ×2 (09:21→20:32)
[2019-11-19] MEDS: HYDROCODONE/ACETAMOPHEN 5/325MG TAB PO SCH ×3 (09:21→20:31)
[2019-11-19] MEDS: LOSARTAN POTASSIUM 50 MG TAB PO SCH ×2 (09:21→16:17)
[2019-11-19] MEDS: CHOLECALCIFEROL 1,000 UNITS 25 MCG TAB PO SCH (09:21)
[2019-11-19] MEDS: AMLODIPINE BESYLATE 5 MG TAB PO SCH ×2 (09:21→17:30)
[2019-11-19] MEDS: FUROSEMIDE 20 MG TAB PO SCH (09:21)
[2019-11-19] MEDS: METOPROLOL SUCC 25MG EXT REL TAB PO SCH ×2 (09:21→17:30)
[2019-11-19] MEDS: PANTOprazole 40 MG TAB PO SCH (09:21)
[2019-11-19] MEDS: DOCUSATE SODIUM/SENNA 50/8.6MG TAB PO SCH ×2 (09:21→20:30)
[2019-11-19] MEDS: cefTRIAXone SODIUM 1,000 MG/50 ML BAG IV SCH (16:16)
[2019-11-19] MEDS ORDERED: POTASSIUM CHLORIDE 20 MEQ TABCR PO ONE ×2 (18:15→18:30)
[2019-11-19] MEDS ORDERED: LEVALBUTEROL 1.25MG/0.5ML NEB NEB ONE (18:30)
[2019-11-19] MEDS ORDERED: FUROSEMIDE 20 MG in SYRINGE 0 ML IV ONE (18:30)
--- NOTE | 2019-11-19 20:09 | Hospitalist Progress Note ---
Date of Service November 19, 2019 Assessment & Plan (1) Altered mental status: (2) Generalized weakness: (3) Urinary tract infection: with metabolic encephalopathy -patient presenting from [facility] for evaluation of altered mental status, generalized weakness -currently receiving hospice care; hospice agency called membership manager who advised the patient needs a higher level of care Remains afebrile, urinary symptoms improving Mental status improving although more confused today which could be secondary to hospital delirium in the setting of severe dementia Urine culture: E. coli, pansensitive Blood cultures: Negative so far Continue IV ceftriaxone day #3 Continue to monitor closely (4) Atrial fibrillation: -Controlled Continue metoprolol -coumadin discontinued as an outpatient due to frequent falls (5) Hypothyroidism: -continue levothyroxine (6) Hypertension: -BP controlled, continue amlodipine, losartan, metoprolol (7) Diastolic dysfunction: Positive mild wheezing today Additional Lasix 20 mg IV 1 dose ordered Levalbuterol treatment also ordered -continue lasix 20 mg p.o. daily Monitor closely (8) DVT prophylaxis: -SQ Lovenox daily Disposition Arrangements underway for transitioning to [facility] facility with hospice services Admission and Anticipated Discharge Date Admission Date: November 17, 2019 Subjective Follow-up for metabolic encephalopathy, UTI, history of dementia Seen with children at the bedside visiting Reports patient is more alert, but also more confused today which happens when she is in the hospital admitted Patient seen resting in bed, comfortable, not in distress Conversant, calm, cooperative States the dysuria is much better, no abdominal pain, no nausea or vomiting, no fevers or chills Denies shortness of breath or any changes with her breathing, no chest pain, palpitations, dizziness No other symptoms Review of Systems Review of Systems: All systems reviewed & are unremarkable except as noted in HPI & below Physical Exam Physical Exam: General-oriented x1-2, not in distress, speaks in sentences with no effort or accessory muscle use Eyes- anicteric Neck- no JVD Lungs-positive mild expiratory wheeze bilaterally, no crackles, good air entry bilaterally Heart- normal rate, regular rhythm; no murmurs Abdomen- normal bowel sounds, nondistended, soft, nontender Extremities- no pretibial edema, no calf tenderness Neuro- alert, oriented x 1-2; no gross focal neurologic deficits Skin- warm & dry Results & Data ([facility]) Vital Signs (Past 12 Hours) Vital Signs Temp Pulse Resp BP Pulse Ox 11/19/19 15:07 36.8 C 89 16 161/78 H 95
[2019-11-19] MEDS: ENOXAPARIN INJ 40 MG/0.4 ML SYR SQ SCH (20:28)
[2019-11-19] MEDS ORDERED: SODIUM CHLORIDE 0.9% 250 ML IV SCH (23:45)
[2019-11-20] MEDS: LEVOTHYROXINE SODIUM 125 MCG TABLET PO SCH (05:52)
[2019-11-20 07:02] LABS: BUN Creatinine Ratio 11.7 (10-20); Creatinine Clr Calc Pharmacy 40.3 ml/min; Est GFR (African American) 73.5; Est GFR (Non-African American) 63.4; Potassium 3.7 mmol/L (3.5-5.1)
[2019-11-20] MEDS: FERROUS SULFATE 325 MG TAB PO SCH (08:28)
[2019-11-20] MEDS: CHOLECALCIFEROL 1,000 UNITS 25 MCG TAB PO SCH (08:28)
[2019-11-20] MEDS: LOSARTAN POTASSIUM 50 MG TAB PO SCH ×2 (08:28→17:18)
[2019-11-20] MEDS: FUROSEMIDE 20 MG TAB PO SCH (08:29)
[2019-11-20] MEDS: AMLODIPINE BESYLATE 5 MG TAB PO SCH ×2 (08:29→17:18)
[2019-11-20] MEDS: DOCUSATE SODIUM/SENNA 50/8.6MG TAB PO SCH ×2 (08:30→22:42)
[2019-11-20] MEDS: PANTOprazole 40 MG TAB PO SCH (08:30)
[2019-11-20] MEDS: METOPROLOL SUCC 25MG EXT REL TAB PO SCH ×2 (08:31→17:19)
[2019-11-20] MEDS: NYSTATIN POWDER 15GM BTL EXT SCH ×2 (08:42→22:41)
[2019-11-20] MEDS: HYDROCODONE/ACETAMOPHEN 5/325MG TAB PO SCH ×3 (08:48→22:38)
[2019-11-20] MEDS: cephALEXin 500 MG CAP PO SCH (17:17)
[2019-11-20] MEDS: LEVALBUTEROL 1.25MG/0.5ML NEB NEB SCH (19:19)
--- NOTE | 2019-11-20 19:21 | XRay Report ---
XR chest 1V portable CLINICAL HISTORY: Cough COMPARISON STUDY: 11/17/2019 FINDINGS: The study is rotated. The heart is enlarged. There is extensive aortic calcification. There is a retrocardiac opacity consistent with a hiatal hernia. There is no focal pulmonary consolidation . There is a small right pleural effusion.[ IMPRESSION: 1. Cardiomegaly and small right pleural effusion 2. Hiatal hernia 3. No evidence of focal pulmonary consolidation ACT 112: Negative or not required by law. Electronically signed by: Efrain Velazco M.D. 11/20/2019 7:20 PM
--- NOTE | 2019-11-20 20:14 | Hospitalist Progress Note ---
Date of Service November 20, 2019 Assessment & Plan (1) Altered mental status: (2) Generalized weakness: (3) Urinary tract infection: with metabolic encephalopathy -patient presenting from [facility] for evaluation of altered mental status, generalized weakness -currently receiving hospice care; hospice agency called paper mill manager who advised the patient needs a higher level of care Remains afebrile, urinary symptoms improving Mental status improving although more confused today which could be secondary to hospital delirium in the setting of severe dementia Urine culture: E. coli, pansensitive Blood cultures: Negative so far Given IV ceftriaxone x3 days, transition to cephalexin Continue to monitor closely (4) Atrial fibrillation: -Controlled Continue metoprolol -coumadin discontinued as an outpatient due to frequent falls (5) Hypothyroidism: -continue levothyroxine (6) Hypertension: -BP controlled, continue amlodipine, losartan, metoprolol (7) Diastolic dysfunction: Wheezing improved today, but is having dry cough No signs of overt volume overload Chest x-ray: No pneumonia Levalbuterol treatment 6 hours ordered -continue lasix 20 mg p.o. daily Monitor closely (8) DVT prophylaxis: -SQ Lovenox daily Disposition Arrangements underway for transitioning to detention facility with hospice services Plan of care discussed with patient's son at the bedside, day for next Questions were answered next He is comfortable, understanding, agreeable to plan of care Admission and Anticipated Discharge Date Admission Date: November 17, 2019 Subjective Follow-up for UTI, altered mental status Seen the patient's son Ty at bedside Albin reports patient is anxious today Patient is awake and alert, initially irritable but became cooperative throughout exam Denies shortness of breath, but noted to be having dry cough today No chest pain No abdominal pain, nausea vomiting No other symptoms Review of Systems Review of Systems: All systems reviewed & are unremarkable except as noted in HPI & below Physical Exam Physical Exam: General- oriented x 1, not in distress, speaks in sentences with no effort or accessory muscle use Eyes- anicteric Neck- no JVD Lungs-mild expiratory wheeze on the right, clear on the left, no crackles Heart- normal rate, regular rhythm; no murmurs Abdomen- normal bowel sounds, nondistended, soft, nontender Extremities- no pretibial edema, no calf tenderness Neuro- alert, oriented x 1; no gross focal neurologic deficits Skin- warm & dry Results & Data ([place]) Vital Signs (Past 12 Hours) Vital Signs Temp Pulse Pulse Resp BP Pulse Ox 11/20/19 19:07 80 18 96 11/20/19 17:15 106 H 128/79 11/20/19 15:41 36.4 C L 84 20 124/84 90
[2019-11-20] MEDS: ENOXAPARIN INJ 40 MG/0.4 ML SYR SQ SCH (22:42)
[2019-11-20] MEDS: LORazepam 0.5 MG TAB PO PRN (22:46)
[2019-11-21] MEDS: LEVALBUTEROL 1.25MG/0.5ML NEB NEB SCH ×4 (01:13→19:28)
[2019-11-21] MEDS: LEVOTHYROXINE SODIUM 125 MCG TABLET PO SCH ×2 (05:56→05:59)
[2019-11-21 06:27] LABS: BUN Creatinine Ratio 13.9 (10-20); Calcium 8.7 mg/dl (8.5-10.1); Creatinine Clr Calc Pharmacy 47.9 ml/min; Est GFR (African American) 89.5; Est GFR (Non-African American) 77.2; Potassium 3.4 mmol/L (3.5-5.1)
[2019-11-21] MEDS: cephALEXin 500 MG CAP PO SCH ×2 (08:44→20:41)
[2019-11-21] MEDS: CHOLECALCIFEROL 1,000 UNITS 25 MCG TAB PO SCH (08:44)
[2019-11-21] MEDS: FUROSEMIDE 20 MG TAB PO SCH (08:44)
[2019-11-21] MEDS: AMLODIPINE BESYLATE 5 MG TAB PO SCH ×2 (08:44→18:42)
[2019-11-21] MEDS: PANTOprazole 40 MG TAB PO SCH (08:45)
[2019-11-21] MEDS: DOCUSATE SODIUM/SENNA 50/8.6MG TAB PO SCH ×2 (08:45→20:41)
[2019-11-21] MEDS: METOPROLOL SUCC 25MG EXT REL TAB PO SCH ×2 (08:45→18:42)
[2019-11-21] MEDS: FERROUS SULFATE 325 MG TAB PO SCH (08:45)
[2019-11-21] MEDS: LOSARTAN POTASSIUM 50 MG TAB PO SCH ×2 (08:45→16:07)
[2019-11-21] MEDS: NYSTATIN POWDER 15GM BTL EXT SCH ×2 (08:46→20:36)
[2019-11-21] MEDS: HYDROCODONE/ACETAMOPHEN 5/325MG TAB PO SCH ×3 (08:47→20:41)
--- NOTE | 2019-11-21 12:02 | Hospitalist Progress Note ---
Date of Service delayed entry date of service noted below November 21, 2019 Assessment & Plan (1) Altered mental status: (2) Generalized weakness: (3) Urinary tract infection: with metabolic encephalopathy -patient presenting from [facility] for evaluation of altered mental status, generalized weakness -currently receiving hospice care; hospice agency called service department manager who advised the patient needs a higher level of care Remains afebrile, urinary symptoms resolved Mental status improving Urine culture: E. coli, pansensitive Blood cultures: Negative so far Given IV ceftriaxone x3 days, transitioned to cephalexin (4) Atrial fibrillation: -Controlled Continue metoprolol -coumadin discontinued as an outpatient due to frequent falls (5) Hypothyroidism: -continue levothyroxine (6) Hypertension: -BP controlled, continue amlodipine, losartan, metoprolol (7) Diastolic dysfunction: (+) mild wheezing No signs of overt volume overload Chest x-ray: No pneumonia Levalbuterol treatment 6 hours ordered, Mucinex -continue lasix 20 mg p.o. daily Monitor closely (8) DVT prophylaxis: -SQ Lovenox daily Disposition Arrangements underway for transitioning to intermediate facility with hospice services Admission and Anticipated Discharge Date Admission Date: November 17, 2019 Subjective ff up for UTI, AMS seen resting in bed, comfortable calm, cooperative states she feels fine overall denies dyspnea, has dry cough no shortness of breath no abdominal pain ,dysuria no other symptoms Review of Systems Review of Systems: All systems reviewed & are unremarkable except as noted in HPI & below Physical Exam Physical Exam: General- oriented x 1-2, not in distress, speaks in sentences with no effort or accessory muscle use Eyes- anicteric Neck- no JVD Lungs- mild scattered expiratory wheeze no crackles Heart- normal rate, regular rhythm; no murmurs Abdomen- normal bowel sounds, nondistended, soft, nontender Extremities- no pretibial edema, no calf tenderness Neuro- alert, oriented x 1-2; no other new gross focal neurologic deficits Skin- warm & dry Results & Data ([facility]) Vital Signs (Past 12 Hours) Vital Signs Temp Pulse Resp BP Pulse Ox 11/21/19 07:37 37.1 C 66 16 125/70 92 11/21/19 07:33 80 18 92 11/21/19 00:45 36.6 C 64 18 123/67 95 Laboratory Results all noted and reviewed
[2019-11-21] MEDS ORDERED: POTASSIUM CHLORIDE 20 MEQ TABCR PO STA (12:25)
[2019-11-21] MEDS: guaiFENesin 600 MG TABCR PO SCH ×2 (13:32→20:41)
[2019-11-21] MEDS: LORazepam 0.5 MG TAB PO PRN (18:42)
[2019-11-21] MEDS: ENOXAPARIN INJ 40 MG/0.4 ML SYR SQ SCH (20:42)
[2019-11-22] MEDS: LEVALBUTEROL 1.25MG/0.5ML NEB NEB SCH ×5 (00:58→19:14)
[2019-11-22] MEDS: LEVOTHYROXINE SODIUM 125 MCG TABLET PO SCH ×2 (05:16→05:29)
[2019-11-22 06:48] LABS: BUN Creatinine Ratio 12.1 (10-20); Calcium 9.2 mg/dl (8.5-10.1); Est GFR (African American) 79.3; Est GFR (Non-African American) 68.5
[2019-11-22] MEDS: FUROSEMIDE 20 MG TAB PO SCH (09:33)
[2019-11-22] MEDS: METOPROLOL SUCC 25MG EXT REL TAB PO SCH ×2 (09:33→18:39)
[2019-11-22] MEDS: PANTOprazole 40 MG TAB PO SCH (09:34)
[2019-11-22] MEDS: CHOLECALCIFEROL 1,000 UNITS 25 MCG TAB PO SCH (09:34)
[2019-11-22] MEDS: cephALEXin 500 MG CAP PO SCH ×2 (09:34→21:39)
[2019-11-22] MEDS: guaiFENesin 600 MG TABCR PO SCH ×2 (09:34→21:37)
[2019-11-22] MEDS: AMLODIPINE BESYLATE 5 MG TAB PO SCH ×2 (09:35→18:39)
[2019-11-22] MEDS: LOSARTAN POTASSIUM 50 MG TAB PO SCH ×2 (09:35→16:33)
[2019-11-22] MEDS: FERROUS SULFATE 325 MG TAB PO SCH (09:35)
[2019-11-22] MEDS: DOCUSATE SODIUM/SENNA 50/8.6MG TAB PO SCH ×2 (09:39→21:44)
[2019-11-22] MEDS: NYSTATIN POWDER 15GM BTL EXT SCH ×2 (09:39→21:36)
[2019-11-22] MEDS: HYDROCODONE/ACETAMOPHEN 5/325MG TAB PO SCH ×4 (09:39→21:36)
[2019-11-22] MEDS ORDERED: predniSONE 20 MG TAB PO ONE (19:54)
[2019-11-22] MEDS: ENOXAPARIN INJ 40 MG/0.4 ML SYR SQ SCH (21:37)
[2019-11-23] MEDS: LEVALBUTEROL 1.25MG/0.5ML NEB NEB SCH ×4 (00:50→19:32)
[2019-11-23] MEDS: LEVOTHYROXINE SODIUM 125 MCG TABLET PO SCH (05:45)
[2019-11-23] MEDS ORDERED: SODIUM CHLORIDE 0.9% 500 ML IV ONE (06:10)
[2019-11-23 06:37] LABS: Basophils # (auto) 0.01 K/uL (0-0.2); Basophils % (auto) 0.3 %; Hematocrit (blood only) 42.6 % (37-47); Hemoglobin 14.4 g/dL (12.0-16.0); Immature Granulocytes # (auto) 0.01 K/uL (0.00-0.02); Immature Granulocytes % (auto) 0.3 %; Lymphocytes # (auto) 0.65 K/uL (1.2-3.4); Lymphocytes % (auto) 19.2 %; Mean Corpuscular Hemoglobin 30.1 pg (25-34); Mean Corpuscular Hgb Conc 33.8 g/dL (32-36); Mean Corpuscular Volume 88.9 fL (80-100); Mean Platelet Volume 11.6 fL (7.4-10.4); Monocytes # (auto) 0.27 K/uL (0.11-0.59); Neutrophils # (auto) 2.44 K/uL (1.4-6.5); Neutrophils % (auto) 72.2 %; Platelet Count 199 K/uL (130-400); RDW Standard Deviation 48.8 fL (36.4-46.3); Red Blood Count 4.79 M/uL (4.2-5.4); White Blood Count 3.38 K/uL (4.8-10.8)
[2019-11-23 07:08] LABS: BUN Creatinine Ratio 11.4 (10-20); Calcium 9.3 mg/dl (8.5-10.1); Est GFR (African American) 79.3; Est GFR (Non-African American) 68.5; Potassium 4.2 mmol/L (3.5-5.1)
[2019-11-23] MEDS: PANTOprazole 40 MG TAB PO SCH (09:19)
[2019-11-23] MEDS: METOPROLOL SUCC 25MG EXT REL TAB PO SCH ×2 (09:19→17:32)
[2019-11-23] MEDS: FERROUS SULFATE 325 MG TAB PO SCH (09:20)
[2019-11-23] MEDS: CHOLECALCIFEROL 1,000 UNITS 25 MCG TAB PO SCH (09:20)
[2019-11-23] MEDS: LOSARTAN POTASSIUM 50 MG TAB PO SCH ×2 (09:20→17:00)
[2019-11-23] MEDS: guaiFENesin 600 MG TABCR PO SCH ×2 (09:21→20:41)
[2019-11-23] MEDS: cephALEXin 500 MG CAP PO SCH ×2 (09:21→20:41)
[2019-11-23] MEDS: AMLODIPINE BESYLATE 5 MG TAB PO SCH ×2 (09:21→17:33)
[2019-11-23] MEDS: NYSTATIN POWDER 15GM BTL EXT SCH ×2 (09:22→21:38)
[2019-11-23] MEDS: DOCUSATE SODIUM/SENNA 50/8.6MG TAB PO SCH ×2 (09:26→20:41)
[2019-11-23] MEDS: HYDROCODONE/ACETAMOPHEN 5/325MG TAB PO SCH ×3 (09:26→20:40)
[2019-11-23] MEDS ORDERED: predniSONE 20 MG TAB PO ONE (19:00)
[2019-11-23] MEDS: ENOXAPARIN INJ 40 MG/0.4 ML SYR SQ SCH (20:40)
[2019-11-24] MEDS: LEVALBUTEROL 1.25MG/0.5ML NEB NEB SCH ×3 (01:17→13:29)
[2019-11-24] MEDS: LEVOTHYROXINE SODIUM 125 MCG TABLET PO SCH (05:57)
--- NOTE | 2019-11-24 07:27 | Hospitalist Progress Note ---
Date of Service delayed entry date of service 11/23/19 November 24, 2019 Assessment & Plan (1) Altered mental status: (2) Generalized weakness: (3) Urinary tract infection: with metabolic encephalopathy -patient presenting from [facility] for evaluation of altered mental status, generalized weakness -currently receiving hospice care; hospice agency called manager inside who advised the patient needs a higher level of care Remains afebrile, urinary symptoms resolved Mental status improved Urine culture: E. coli, pansensitive Blood cultures: Negative so far Given IV ceftriaxone x3 days, transitioned to cephalexin (4) Atrial fibrillation: -Controlled Continue metoprolol -coumadin discontinued as an outpatient due to frequent falls (5) Hypothyroidism: -continue levothyroxine (6) Hypertension: -BP controlled, continue amlodipine, losartan, metoprolol (7) Diastolic dysfunction: (+) mild wheezing No signs of overt volume overload Chest x-ray: No pneumonia Levalbuterol treatment 6 hours ordered, Mucinex -- trial of Prednisone 20mg po one dose -continue lasix 20 mg p.o. daily Monitor closely (8) DVT prophylaxis: -SQ Lovenox daily Disposition Arrangements underway for transitioning to [facility] facility with hospice services Admission and Anticipated Discharge Date Admission Date: November 17, 2019 Subjective ff up for UTI, AMS seen resting in bed, son at bedside states she feels fine overall except for occasional dry cough no SOB, no chest pain denies other symptoms Review of Systems Review of Systems: All systems reviewed & are unremarkable except as noted in HPI & below Physical Exam Physical Exam: General- oriented x 2, not in distress, speaks in sentences with no effort or accessory muscle use Eyes- anicteric Neck- no JVD Lungs- mild expiratory wheeze no crackles Heart- normal rate, regular rhythm; no murmurs Abdomen- normal bowel sounds, nondistended, soft, nontender Extremities- no pretibial edema, no calf tenderness Neuro- alert, oriented x 2; no gross focal neurologic deficits Skin- warm & dry Results & Data ([facility]) Vital Signs (Past 12 Hours) Vital Signs Temp Pulse Pulse Resp BP Pulse Ox 11/24/19 06:54 36.6 C 80 18 152/86 H 96 11/24/19 01:17 88 18 94 11/23/19 23:34 36.6 C 89 18 113/73 94 11/23/19 19:36 78 22 90 Laboratory Results noted and reviewed
--- NOTE | 2019-11-24 07:30 | Hospitalist Progress Note ---
Date of Service November 24, 2019 Assessment & Plan (1) Altered mental status: (2) Generalized weakness: (3) Urinary tract infection: with metabolic encephalopathy -patient presenting from [facility] for evaluation of altered mental status, generalized weakness -currently receiving hospice care; hospice agency called propagation manager who advised the patient needs a higher level of care Remains afebrile, urinary symptoms resolved Mental status improved Urine culture: E. coli, pansensitive Blood cultures: Negative so far completed 7 days total of Ceftriaxone and Cephalexin (4) Atrial fibrillation: -Controlled Continue metoprolol -coumadin discontinued as an outpatient due to frequent falls (5) Hypothyroidism: -continue levothyroxine (6) Hypertension: -BP controlled, continue amlodipine, losartan, metoprolol (7) Diastolic dysfunction: (+) mild wheezing--> likely Viral Bronchitis no leukocytosis No signs of overt volume overload Chest x-ray: No pneumonia Levalbuterol treatment 6 hours ordered, Mucinex -- trial of Prednisone 40mg po one dose --continue lasix 20 mg p.o. daily Monitor closely (8) DVT prophylaxis: -SQ Lovenox daily Disposition Arrangements underway for transitioning to [facility] facility with hosp[facility] services Admission and Anticipated Discharge Date Admission Date: November 17, 2019 Subjective ff up for UTI ,AMS, wheezing seen resting in bed, daughter at bedside not in distress, comfortable feels fine overall has occasional dry cough no dyspnea, chest pain no other symptoms Review of Systems Review of Systems: All systems reviewed & are unremarkable except as noted in HPI & below Physical Exam Physical Exam: General- oriented x 2, not in distress, speaks in sentences with no effort or accessory muscle use Eyes- anicteric Neck- no JVD Lungs- mild scattered exp wheeze no crackles Heart- normal rate, regular rhythm; no murmurs Abdomen- normal bowel sounds, nondistended, soft, nontender Extremities- no pretibial edema, no calf tenderness Neuro- alert, oriented x 2; no gross focal neurologic deficits Skin- warm & dry Results & Data ([facility]) Vital Signs (Past 12 Hours) Vital Signs Temp Pulse Pulse Resp BP Pulse Ox 11/24/19 06:54 36.6 C 80 18 152/86 H 96 11/24/19 01:17 88 18 94 11/23/19 23:34 36.6 C 89 18 113/73 94 11/23/19 19:36 78 22 90
[2019-11-24] MEDS: HYDROCODONE/ACETAMOPHEN 5/325MG TAB PO SCH ×3 (09:01→21:05)
[2019-11-24] MEDS: FERROUS SULFATE 325 MG TAB PO SCH (09:02)
[2019-11-24] MEDS: CHOLECALCIFEROL 1,000 UNITS 25 MCG TAB PO SCH (09:02)
[2019-11-24] MEDS: guaiFENesin 600 MG TABCR PO SCH ×2 (09:02→21:03)
[2019-11-24] MEDS: PANTOprazole 40 MG TAB PO SCH (09:02)
[2019-11-24] MEDS: DOCUSATE SODIUM/SENNA 50/8.6MG TAB PO SCH ×2 (09:02→21:02)
[2019-11-24] MEDS: LOSARTAN POTASSIUM 50 MG TAB PO SCH ×2 (09:02→16:02)
[2019-11-24] MEDS: METOPROLOL SUCC 25MG EXT REL TAB PO SCH ×2 (09:02→19:42)
[2019-11-24] MEDS: AMLODIPINE BESYLATE 5 MG TAB PO SCH ×2 (09:26→19:43)
[2019-11-24] MEDS: NYSTATIN POWDER 15GM BTL EXT SCH ×2 (09:30→21:01)
[2019-11-24] MEDS: LEVALBUTEROL HCL 1.25 MG/3 ML NEB NEB SCH (19:28)
[2019-11-24] MEDS: ENOXAPARIN INJ 40 MG/0.4 ML SYR SQ SCH (21:02)
--- NOTE | 2019-11-24 21:13 | Hospitalist Progress Note ---
Date of Service November 24, 2019 Assessment & Plan (1) Altered mental status: (1) Altered mental status: (2) Generalized weakness: (3) Urinary tract infection: with metabolic encephalopathy -patient presenting from [facility] for evaluation of altered mental status, generalized weakness -currently receiving hospice care; hospice agency called community services manager who advised the patient needs a higher level of care Remains afebrile, urinary symptoms resolved Mental status improved, back to baseline Urine culture: E. coli, pansensitive Blood cultures: Negative so far completed 7 days total of Ceftriaxone and Cephalexin (4) Atrial fibrillation: -Controlled Continue metoprolol -coumadin discontinued as an outpatient due to frequent falls (5) Hypothyroidism: -continue levothyroxine (6) Hypertension: -BP controlled, continue amlodipine, losartan, metoprolol (7) Diastolic dysfunction: (+) mild wheezing--> likely Viral Bronchitis no leukocytosis No signs of overt volume overload Chest x-ray: No pneumonia Levalbuterol treatment 6 hours ordered, Mucinex -- trial of Prednisone 40mg po one dose given, wheezing has resolved --continue lasix 20 mg p.o. daily Monitor closely (8) DVT prophylaxis: -SQ Lovenox daily [facility] November 25, 2019 Admission and Anticipated Discharge Date Admission Date: November 17, 2019 Subjective Follow-up for UTI Seen with patient's children at the bedside Patient is sleeping but easily awakened States she feels fine overall Shortness of breath, no cough, no sputum Denies other symptoms Review of Systems Review of Systems: All systems reviewed & are unremarkable except as noted in HPI & below Physical Exam Physical Exam: General- oriented x 2, not in distress, speaks in sentences with no effort or accessory muscle use Eyes- anicteric Neck- no JVD Lungs- clear breath sounds, no wheezing bilaterally Heart- normal rate, regular rhythm; no murmurs Abdomen- normal bowel sounds, nondistended, soft, nontender Extremities- no pretibial edema, no calf tenderness Neuro- alert, oriented x 2; no gross focal neurologic deficits Skin- warm & dry Results & Data ([facility]) Vital Signs (Past 12 Hours) Vital Signs Temp Pulse Pulse Resp BP Pulse Ox 11/24/19 19:30 81 16 97 11/24/19 15:54 36.4 C L 75 16 109/70 98 11/24/19 13:30 70 18 93
--- NOTE | 2019-11-24 21:21 | Discharge Summary ---
Date of Service November 24, 2019 Admission HPI Per Admitting Provider 89 year old female who presents to the ED from [facility] for evaluation of altered mental status and generalized weakness. History is currently unobtainable from the patient due to underlying dementia. Some history is obtained from the patient's family. Patient's daughter reports increasing confusion and generalized weakness over the past couple of weeks. She also noted foul smelling urine. Patient has been requiring a lot more assistance. Patient is currently under hospice and the hospice agency notified ED case management that the patient now requires a higher level of care. No repo rted fever or chills. In the ED, patient's UA suggests possible UTI. Patient is hemodynamically stable. Labs are unremarkable. She was given IVF and IV ceftriaxone. Admission Exam Per Admitting Provider Constitutional: WD/WN, vitals as above Eyes: legally blind ENMT: external ear and nose normal, oropharynx normal Respiratory: normal respiratory effort; no respiratory distress Auscultation: + diminished lung sounds Cardiovascular: Rate/Rhythm: regular rate and + irregularly irregular Vessels: normal peripheral pulses Extremities: no edema Gastrointestinal (Abdomen): normal bowel sounds, soft, nontender, no hepatosplenomegaly Musculoskeletal: no cyanosis or clubbing, extremities motor strength 5/5 Skin: no rashes, warm and dry Neurologic: no focal motor deficits Speech / Cognition: normal speech Cranial Nerves: normal facial strength Psychiatric: Orientation: alert and oriented to person; + not oriented to place and + not oriented to time Insight: + poor insight Principal Diagnosis ALTERED MENTAL STATUS LIKELY SECONDARY TO METABOLIC ENCEPHALOPATHY FROM TRACT INFECTION Discharge Exam General- oriented x 2, not in distress, speaks in sentences with no effort or accessory muscle use Eyes- anicteric Neck- no JVD Lungs- clear breath sounds, no wheezing bilaterally Heart- normal rate, regular rhythm; no murmurs Abdomen- normal bowel sounds, nondistended, soft, nontender Extremities- no pretibial edema, no calf tenderness Neuro- alert, oriented x 2; no gross focal neurologic deficits Skin- warm & dry Discharge Data Allergies Allergy/AdvReac Type Severity Reaction Status Date / Time Cipro Allergy Unknown RASH,SEVERE Verified 03/14/18 21:16 HEADACHE ciprofloxacin Allergy Unknown RASH,SEVERE Verified 11/17/19 15:03 HEADACHE aspirin AdvReac Intermediate nose bleeds Verified 03/10/20 15:03 Sulfa (Sulfonamide AdvReac Unknown HEADACHE Verified 11/17/19 15:03 Antibiotics) WITH BACTRIM Consultations 11/17/19 16:44 ED Decision to Admit Stat 11/17/19 19:14 Consult Case Management - Discharge Planning Routine Ordered Studies 11/17/19 15:57 CT head/brain wo con Stat FINDINGS: 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 Motion artifact moderately degrades image quality and moderately limits diagnostic sensitivity the exam. Proportional ventricular and sulcal prominence, likely age-related parenchymal volume loss. However, there is gyral crowding at the vertex, unchanged from prior. No hemorrhage. Periventricular and subcortical white matter hypoattenuation, nonspecific but likely indicative of chronic small vessel ischemic change. Old lacunar infarct in the right basal ganglia. Previously demonstrated old left occipital lobe infarct is not as well demonstrated on the current exam. No acute territorial infarct. No mass effect or midline shift. No extra-axial fluid collection. Paranasal sinuses and mastoid air cells clear. Calvarium intact. IMPRESSION: Motion artifact moderately degrades image quality and moderately limits diagno stic sensitivity the exam. 1. Gyral crowding at the vertex could suggest the presence of normal pressure hydrocephalus. The appearance is unchanged from prior. 2. 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 No acute intracranial abnormality. ACT 112: Negative or not required by law. Hospital Course (1) Altered mental status: (1) Altered mental status: (2) Generalized weakness: (3) Urinary tract infection: with metabolic encephalopathy -patient presenting from [facility] for evaluation of altered mental status, generalized weakness -currently receiving hospice care; hospice agency called human resources office manager who advised the patient needs a higher level of care Remains afebrile, urinary symptoms resolved Mental status improved, back to baseline Urine culture: E. coli, pansensitive Blood cultures: Negative so far completed 7 days total of Ceftriaxone and Cephalexin (4) Atrial fibrillation: -Controlled Continue metoprolol -coumadin discontinued as an outpatient due to frequent falls (5) Hypothyroidism: -continue levothyroxine (6) Hypertension: -BP controlled, continue amlodipine, losartan, metoprolol (7) Diastolic dysfunction: --Euvolemic --continue lasix 20 mg p.o. daily (8) possible viral bronchitis (+) mild wheezing--> likely Viral Bronchitis no leukocytosis No signs of overt volume overload Chest x-ray: No pneumonia Levalbuterol treatment 6 hours ordered, Mucinex -- trial of Prednisone 40mg po and 20mg - 1 dose each given, wheezing has reso lved --PRN levalbuterol (8) DVT prophylaxis: -SQ Lovenox daily given Disposition transitioning to senior care facility with hospice services tomorrow November 25, 2019 Total Time Total Time Spent Total Time Spent (In Minutes): 50 minutes Discharge Plan Discharge Items Patient Disposition: Transfer Half-Way Fac Reason For Visit: UTI,ALTERED MENTAL STATUS Discharge Diagnosis: ALTERED MENTAL STATUS, URINARY TRACT INFECTION Activity: Resume your previous activity Non-emergency contact: Primary Care Provider Call non-emergency contact if: you have any medication questions, your symptoms worsen, your pain is not controlled and you have a fever Follow-up/Referrals: Fer Wheeler [Primary Care Provider] - Diet: Regular Addtl Attending Provider Instructions: Transition to hospice care in [facility]. Please refer to accompanying hospital discharge summary for further details. Pending Studies at Discharge: No Stand-Alone Forms: My [facility] Skilled Items Patient informed of condition?: Yes DNR: Yes Discharge Level of Care: Skilled Communicable Disease: No Discharge Prognosis: Stable Lines: None Urinary Catheter: No Medications and DC Order Prescriptions: New levalbuterol HCl 1.25 mg/3 mL Solution For Nebulization 1.25 mg NEB [id number] PRN (Reason: Shortness Of Breath Or Wheezing) 30 Days Qty: 72 RF: 0 guaifenesin [Mucinex] 600 mg Tablet Extended Release 12hr 1,200 mg PO Q12 4 Days Qty: 16 RF: 0 Continued omeprazole 20 mg Capsule,Delayed Release(Dr/Ec) 20 mg PO DAILY@0800 RF: 0 cholecalciferol (vitamin D3) [Vitamin D3] 2,000 unit Capsule 2,000 unit PO DAILY@0800 RF: 0 cyanocobalamin (vitamin B-12) 1,000 mcg/mL Kit 1,000 mcg IM MONTHLY RF: 0 nystatin 100,000 unit/gram powder 1 applic topical BID RF: 0 acetaminophen 325 mg Tablet 650 mg PO Q4H PRN (Reason: pain/fever) RF: 0 artificial tears(hypromellose) 0.5 % Drops 1 drp OPHTHALMIC (EYE) BID RF: 0 losartan 50 mg Tablet 50 mg PO BID 30 Days Qty: 60 RF: 0 metoprolol succinate 25 mg Tablet Extended Release 24 Hr 25 mg PO BID 30 Days Qty: 60 RF: 0 ferrous sulfate [iron] 325 mg (65 mg iron) Tablet 325 mg PO DAILY@0800 RF: 0 nitroglycerin [Nitrostat] 0.4 mg Tablet, Sublingual 0.4 mg sublingual DIRECTED PRN (Reason: Chest Pain) RF: 0 sennosides-docusate sodium [Senna-S] 8.6-50 mg Tablet 1 tab-cap PO BID RF: 0 buspirone 5 mg Tablet 5 mg PO DAILY@0800 RF: 0 hydrocodone-acetaminophen 5-325 mg Tablet 0.5 tab PO TID RF: 0 amlodipine 5 mg tablet 5 mg PO BID RF: 0 levothyroxine 125 mcg tablet 125 mcg PO DAILY@0800 RF: 0 Biofreeze (menthol) 4 % Gel 1 applic TOPICAL BID RF: 0 furosemide 20 mg tablet 20 mg PO QAM RF: 0 lorazepam 0.5 mg Tablet 0.5 mg PO Q6H PRN (Reason: Anxiety) RF: 0 furosemide 20 mg tablet 20 mg PO DAILY PRN (Reason: Edema) RF: 0 Discontinued nitrofurantoin monohyd/m-cryst 100 mg capsule 100 mg PO DAILY@0800 RF: 0 Admission Data Admit Date/Time: 11/17/19 17:16 Attending Provider: Lucas Capps Admit Provider: Edward Monique Primary Care Provider: Fer Wheeler Other Providers: Edward Monique ; Quitman,Alba ; [facility] [place] ; [facility],
[2019-11-25] MEDS: LEVOTHYROXINE SODIUM 125 MCG TABLET PO SCH (06:12)
[2019-11-25] MEDS: LEVALBUTEROL HCL 1.25 MG/3 ML NEB NEB SCH (07:25)
[2019-11-25] MEDS: FERROUS SULFATE 325 MG TAB PO SCH (08:42)
[2019-11-25] MEDS: AMLODIPINE BESYLATE 5 MG TAB PO SCH (08:42)
[2019-11-25] MEDS: METOPROLOL SUCC 25MG EXT REL TAB PO SCH (08:42)
[2019-11-25] MEDS: LOSARTAN POTASSIUM 50 MG TAB PO SCH (08:42)
[2019-11-25] MEDS: guaiFENesin 600 MG TABCR PO SCH (08:43)
[2019-11-25] MEDS: DOCUSATE SODIUM/SENNA 50/8.6MG TAB PO SCH (08:43)
[2019-11-25] MEDS: NYSTATIN POWDER 15GM BTL EXT SCH (08:43)
[2019-11-25] MEDS: PANTOprazole 40 MG TAB PO SCH (08:43)
[2019-11-25] MEDS: CHOLECALCIFEROL 1,000 UNITS 25 MCG TAB PO SCH (08:43)
[2019-11-25] MEDS: HYDROCODONE/ACETAMOPHEN 5/325MG TAB PO SCH ×2 (08:45→13:57)
[2019-11-25] MEDS ORDERED: LEVALBUTEROL HCL 1.25 MG/3 ML NEB NEB PRN (09:37)
--- NOTE | 2019-11-25 17:19 | Hospitalist Progress Note ---
Date of Service November 25, 2019 Assessment & Plan (1) Altered mental status: (1) Altered mental status: (2) Generalized weakness: (3) Urinary tract infection: with metabolic encephalopathy Patient presented from [facility] for evaluation of altered mental status, generalized weakness Currently receiving hospice care; hospice agency called it service delivery manager who advised the patient needs a higher level of care Remains afebrile, urinary symptoms resolved Mental status improved, back to baseline Urine culture: E. coli, pansensitive Blood cultures: Negative so far completed 7 days total of Ceftriaxone and Cephalexin (4) Atrial fibrillation: Rate controlled Continue metoprolol Coumadin discontinued as an outpatient due to frequent falls (5) Hypothyroidism: Continue levothyroxine (6) Hypertension: BP controlled, continue amlodipine, losartan, metoprolol (7) Diastolic dysfunction: Euvolemic Continue lasix 20 mg p.o. daily (8) possible viral bronchitis (+) mild wheezing--> likely Viral Bronchitis no leukocytosis No signs of overt volume overload Chest x-ray: No pneumonia Levalbuterol treatment 6 hours ordered, Mucinex Trial of Prednisone 40mg po and 20mg - 1 dose each given, wheezing has resolved PRN levalbuterol Disposition Discharge to hospice today Total time spent on discharge today was 25mins Admission and Anticipated Discharge Date Admission Date: November 17, 2019 Subjective Patient was seen and examined today Denied any complaints Physical Exam Constitutional: + well hydrated; no acute distress Eyes: + anicteric sclerae and PERRL; no corneal abnormality ENMT: external ear and nose normal, oropharynx normal Respiratory: normal respiratory effort, lungs clear to auscultation Cardiovascular: Rate/Rhythm: regular rate and regular rhythm Gastrointestinal (Abdomen): normal bowel sounds, soft, nontender, no hepatosplenomegaly Neurologic: PERRL, EOMI, accommodation nl, no face palsy, no dysarthria Psychiatric: Orientation: alert Oriented to person and place only Results & Data ([facility]) Vital Signs (Past 12 Hours) Vital Signs Temp Pulse Pulse Pulse Resp BP Pulse Ox 11/25/19 13:10 36.4 C L 88 81 75 18 116/78 97 11/25/19 08:41 81 11/25/19 07:25 75 18 97 11/25/19 07:01 36.4 C L 59 L 20 116/78 97
== END 2019-11-25 15:58 | DRG 689 ==
LOC: ED 13:46 → SUATTDRO 17:16 → 2N 17:16 → 3N 11-21 00:35